=== PATIENT | female | born 1965 | race Caucasian/White ===

== ENCOUNTER 2017-02-13 21:24 | Emergency (ER) | payer MEDICARE, OTHER ==
[2017-02-13 21:43] VITALS: BP 135/74
[2017-02-13] MEDS ORDERED: Ondansetron 4 MG/2 ML SDV IVPUSH ONE (22:07)
[2017-02-13] MEDS ORDERED: Sodium Chloride 0.9% 1,000 ML IV SCH (22:15)
[2017-02-13] MEDS ORDERED: Sodium Chloride 0.9% 10 ML Syringe FLUSH PRN (22:23)
[2017-02-13] MEDS ORDERED: Iopamidol 612 MG/ML 150 ML Bottle IV SCH (22:30)
--- NOTE | 2017-02-14 00:01 | EDM.PDOC ---
ED HPI GENERAL MEDICAL PROBLEM - General Chief Complaint: Abdominal Pain Stated Complaint: LOWER AB PAIN/VOMITING/DIARRHEA Time Seen by Provider: 02/13/17 21:37 Source of Information: Reports: Patient History Limitations: Reports: No limitations - History of Present Illness INITIAL COMMENTS - FREE TEXT/NARRATIVE: History of present illness: [51-year-old female is presenting here with left lower quadrant abdominal pain that started this afternoon and progressively got worse. She apparently had a bout of diverticulitis. Years ago and feels that she's having another case of it. She's had alternating constipation and diarrhea some nausea and occasional vomiting. She feels gassy and bloated. She's had no fevers or chills she denies any dysuria she's had a cholecystectomy hysterectomy and opharectomy.] Review of systems: As per history of present illness and below otherwise all systems reviewed and negative. Past medical history: As per history of present illness and as reviewed below otherwise noncontributory. Surgical history: As per history of present illness and as reviewed below otherwise noncontributory. Social history: No reported history of drug or alcohol abuse. Family history: As per history of present illness and as reviewed below otherwise noncontributory. Physical exam: HEENT: Atraumatic, normocephalic, pupils reactive, negative for conjunctival pallor or scleral icterus, mucous membranes moist, throat clear, neck supple, nontender, trachea midline. Lungs: Clear to auscultation, breath sounds equal bilaterally, chest nontender. Heart: S1S2, regular, negative for clicks, rubs, or JVD. Abdomen: Her abdomen is distended and tender throughout without peritoneal signs. Hypoactive bowel sounds are present. Pelvis: Stable nontender. Genitourinary: Deferred. Rectal: Deferred. Extremities: Atraumatic, negative for cords or calf pain. Neurovascular unremarkable. Neuro: Awake, alert, oriented. Cranial nerves II through XII unremarkable. Cerebellum unremarkable. Motor and sensory unremarkable throughout. Exam nonfocal. Diagnostics: [CBC complete metabolic panel were obtained abdominal pelvic CT was obtained and nothing acute her surgical was discovered. she did not have diverticulitis. She did have scattered loops of small bowel and ascending colon with intramural fluid] Therapeutics: [] Impression: [Enteritis] Plan: [She's discharged home and will continue to try to manage her issues at home and followup in the clinic if she's not improving. They have tried to do a colonoscopy on her but apparently she states that her colon is so bad they can get the scope through her. She has wondered if she has irritable bowel syndrome. She's read about that problem.] Definitive disposition and diagnosis as appropriate pending reevaluation and review of above. Left Lower Abdominal Pain Score (Numeric/FACES): 2 - Related Data Allergies Allergy/AdvReac Type Severity Reaction Status Date / Time propofol Allergy Severe Cardiac Verified 03/03/15 04:20 Arrest codeine sulfate Allergy Intermediate Nausea Uncoded 03/03/15 04:20 Home Meds: Home Meds Albuterol Sulfate 1 puff IH ASDIRECTED 12/23/14 [History] Golimumab 50 mg SQ Q30D 12/23/14 [History] Methotrexate Sodium 0.8 ml SQ Q7D 12/23/14 [History] ALPRAZolam [Xanax] 0.25 mg PO BEDTIME PRN 03/03/15 [History] Cetirizine [ZyrTEC] 10 mg PO DAILY PRN 03/03/15 [History] Cholecalciferol (Vitamin D3) [Vitamin D] 50,000 unit PO Q30D 03/03/15 [History] Folic Acid 2 mg PO DAILY 03/03/15 [History] Levothyroxine Sodium [Synthroid] 125 mcg PO DAILY 03/03/15 [History] Tiotropium [Spiriva HandiHaler] 1 puff IH DAILY 03/03/15 [History] Hydrocodone/Acetaminophen [Hydrocodon-Acetaminophen 5-325] 1 tab PO ASDIRECTED PRN 02/13/17 [History] buPROPion HCl [Wellbutrin Xl] 300 mg PO DAILY 02/13/17 [History] Past Medical History Other HEENT History: dry eye syndrome Other Cardiovascular History: hx of low potassium Respiratory History: Reports: Asthma, COPD Gastrointestinal History: Reports: Diverticulosis Musculoskeletal History: Reports: Arthritis Other Musculoskeletal History: shoulder surgery scheduled for 03-16-15 Psychiatric History: Reports: Anxiety Other Endocrine/Metabolic History: glucose impaired - prediabetic Immunologic History: Reports: Immunosuppression - Past Surgical History GI Surgical History: Reports: Appendectomy, Cholecystectomy Other GI Surgeries/Procedures: lap bharath Female Surgical History: Reports: Hysterectomy, Oophorectomy Other Female Surgeries/Procedures: prolapsed bladder Social & Family History - Tobacco Use Smoking Status *Q: Light Tobacco Smoker Years of Tobacco use: 41 Packs/Tins Daily: 5 - Recreational Drug Use Recreational Drug Use: No ED ROS GENERAL - Review of Systems Review Of Systems: ROS reveals no pertinent complaints other than HPI. ED EXAM, GI/ABD - Physical Exam Exam: See Below Course - Vital Signs Last Recorded V/S: Last Vital Signs Temp 37.7 C 02/13/17 21:43 Pulse 103 H 02/13/17 21:43 Resp 16 02/13/17 21:43 BP 135/74 02/13/17 21:43 Pulse Ox 97 02/13/17 21:43 - Orders/Labs/Meds Orders: Active Orders 24 hr Category Date Time Status Abdomen Pelvis w Cont [CT] Stat Exams 02/13/17 22:06 Taken Iopamidol [Isovue-300 (61%)] Med 02/13/17 22:30 Active 150 ml IV . DIRECTED Sodium Chloride 0.9% [Normal Saline] 1,000 ml Med 02/13/17 22:15 Active IV ASDIRECTED Sodium Chloride 0.9% [Saline Flush] Med 02/13/17 22:23 Active 10 ml FLUSH ONETIME PRN Medication Orders Sodium Chloride (Normal Saline) 1,000 mls @ 500 mls/hr IV ASDIRECTED JAMES Last Admin: 02/13/17 22:51 Dose: 500 mls/hr Iopamidol (Isovue-300 (61%)) 150 ml IV . DIRECTED JAMES Last Admin: 02/13/17 22:39 Dose: 150 ml Sodium Chloride (Saline Flush) 10 ml FLUSH ONETIME PRN PRN Reason: PER RADIOLOGY PROTOCOL Last Admin: 02/13/17 22:40 Dose: 10 ml Labs: Laboratory Tests 02/13/17 02/13/17 Range/Units 22:16 22:16 WBC 8.2 (4.5-11.0) K/uL RBC 4.87 (3.30-5.50) M/uL Hgb 14.3 (12.0-15.0) g/dL Hct 41.4 (36.0-48.0) % MCV 85 (80-98) fL MCH 29 (27-31) pg MCHC 35 (32-36) % Plt Count 254 (150-400) K/uL Neut % (Auto) 75 H (36-66) % Lymph % (Auto) 19 L (24-44) % [place] % (Auto) 5 (2-6) % Eos % (Auto) 1 L (2-4) % Baso % (Auto) 1 (0-1) % Sodium 136 L (140-148) mmol/L Potassium 4.2 (3.6-5.2) mmol/L Chloride 101 (100-108) mmol/L Carbon Dioxide 28 (21-32) mmol/L Anion Gap 11.2 (5.0-14.0) mmol/L BUN 16 (7-18) mg/dL Creatinine 1.0 (0.6-1.0) mg/dL Est Cr Clr Drug Dosing 63.71 mL/min Estimated GFR (MDRD) 59 L (>60) Glucose 124 H (74-106) mg/dL Calcium 8.3 L (8.5-10.1) mg/dL Total Bilirubin 0.6 (0.2-1.0) mg/dL AST 21 (15-37) U/L ALT 41 (12-78) U/L Alkaline Phosphatase 36 L (46-116) U/L Total Protein 7.3 (6.4-8.2) g/dL Albumin 3.6 (3.4-5.0) g/dL Globulin 3.7 H (2.3-3.5) g/dL Albumin/Globulin Ratio 1.0 L (1.2-2.2) Meds: Medications Generic Name Dose Route Start Last Admin Trade Name Freq PRN Reason Stop Dose Admin Sodium Chloride 1,000 mls @ 500 mls/hr 02/13/17 22:15 02/13/17 22:51 Normal Saline IV 500 mls/hr ASDIRECTED JAMES Administration Iopamidol 150 ml 02/13/17 22:30 02/13/17 22:39 Isovue-300 (61%) IV 150 ml . DIRECTED JAMES Administration Sodium Chloride 10 ml 02/13/17 22:23 02/13/17 22:40 Saline Flush FLUSH 10 ml ONETIME PRN Administration PER RADIOLOGY PROTOCOL Discontinued Medications Generic Name Dose Route Start Last Admin Trade Name Freq PRN Reason Stop Dose Admin Sodium Chloride 84 mls @ 3 mls/sec 02/13/17 22:23 02/13/17 22:39 Normal Saline IV 02/13/17 22:24 3 mls/sec ONETIME ONE Administration Ondansetron HCl 4 mg 02/13/17 22:07 02/13/17 22:50 Zofran IVPUSH 02/13/17 22:08 4 mg ONETIME ONE Administration Departure - Departure Time of Disposition: 23:59 Disposition: Home, Self-Care 01 Condition: good Clinical Impression: Enteritis - Discharge Information Forms: ED Department Discharge Additional Instructions: I hope you get to feeling better and followup the clinic if you are not improving to see if your doctor can help you. You might benefit from seeing a dietitian to discuss your dietary habits to see if they have any ideas that might help you with your chronic problems with your bowels. If your pain comes back and is very severe especially if associated with a fever he should return to the emergency room. - My Orders Last 24 Hours: My Active Orders 02/13/17 22:06 Abdomen Pelvis w Cont [CT] Stat 02/13/17 22:15 Sodium Chloride 0.9% [Normal Saline] 1,000 ml IV ASDIRECTED 02/13/17 22:23 Sodium Chloride 0.9% [Saline Flush] 10 ml FLUSH ONETIME PRN 02/13/17 22:30 Iopamidol [Isovue-300 (61%)] 150 ml IV . DIRECTED - Assessment/Plan Last 24 Hours: My Active Orders 02/13/17 22:06 Abdomen Pelvis w Cont [CT] Stat 02/13/17 22:15 Sodium Chloride 0.9% [Normal Saline] 1,000 ml IV ASDIRECTED 02/13/17 22:23 Sodium Chloride 0.9% [Saline Flush] 10 ml FLUSH ONETIME PRN 02/13/17 22:30 Iopamidol [Isovue-300 (61%)] 150 ml IV . DIRECTED
== END 2017-02-14 00:10 | disposition home or self-care (01) ==
LOC: JP.ED 21:24
DX: K52.9 Noninfective gastroenteritis and colitis, unspecified (principal); Z79.899 Other long term (current) drug therapy; Z88.5 Allergy status to narcotic agent; J44.9 Chronic obstructive pulmonary disease, unspecified; K57.90 Diverticulosis of intestine, part unspecified, without perforation or abscess without bleeding; F41.9 Anxiety disorder, unspecified; F17.210 Nicotine dependence, cigarettes, uncomplicated
CPT/HCPCS: 36415; 74177; 80053; 85025; 96361; 96374; 99284; J2405; J7030; J7040; J7050

== ENCOUNTER 2017-12-22 18:54 | Emergency (ER) | payer MEDICARE, OTHER ==
[2017-12-22 19:18] VITALS: BP 149/62
[2017-12-22] MEDS ORDERED: Meclizine 25 MG Tab PO ONE (19:56)
[2017-12-22] MEDS ORDERED: Ondansetron 4 MG Tab.DIS PO ONE (19:57)
--- NOTE | 2017-12-22 20:00 | EDM.PDOC ---
ED HPI GENERAL MEDICAL PROBLEM - General Chief Complaint: Gastrointestinal Problem Stated Complaint: ILLNESS Time Seen by Provider: 12/22/17 19:45 Source of Information: Reports: Patient History Limitations: Reports: No Limitations - History of Present Illness INITIAL COMMENTS - FREE TEXT/NARRATIVE: pt had pneumonia in Oct. Since that time she has had episodes ofdizziness or vertigo. If she moves her head or moves her eyes she gets nauseated. Onset: Gradual, Other ( Thuis has been going on since ) Duration: Day(s): Location: Reports: Head Associated Symptoms: Reports: Nausea/Vomiting, Weakness - Related Data Allergies Allergy/AdvReac Type Severity Reaction Status Date / Time propofol Allergy Severe Cardiac Verified 12/22/17 19:20 Arrest codeine sulfate Allergy Intermediate Nausea Uncoded 03/03/15 04:20 Home Meds: Home Meds ALPRAZolam [Xanax] 0.5 mg PO BEDTIME PRN 03/03/15 [History] Cetirizine [ZyrTEC] 10 mg PO DAILY PRN 03/03/15 [History] Cholecalciferol (Vitamin D3) [Vitamin D] 50,000 unit PO Q30D 03/03/15 [History] Folic Acid 1 mg PO DAILY 03/03/15 [History] Tiotropium [Spiriva HandiHaler] 1 puff IH DAILY 03/03/15 [History] Hydrocodone/Acetaminophen [Hydrocodon-Acetaminophen 5-325] 1 tab PO ASDIRECTED PRN 02/13/17 [History] Albuterol [Proventil] 1 dose INH Q4H PRN 12/22/17 [History] Clobetasol Propionate [Temovate] 1 dose TOP BID 12/22/17 [History] Fenofibrate 1 tab PO DAILY 12/22/17 [History] Golimumab [Simponi] 50 mg SUBCUT ASDIRECTED 12/22/17 [History] Levothyroxine 1 tab PO DAILY 12/22/17 [History] Methotrexate 6 tab PO ASDIRECTED 12/22/17 [History] Ranitidine HCl [Zantac] 1 tab PO DAILY 12/22/17 [History] Venlafaxine HCl [Venlafaxine ER] 150 mg PO DAILY 12/22/17 [History] predniSONE [Prednisone] 1 tab PO ASDIRECTED 12/22/17 [History] Past Medical History Other HEENT History: dry eye syndrome Other Cardiovascular History: hx of low potassium Respiratory History: Reports: Asthma, COPD Gastrointestinal History: Reports: Diverticulosis, Pancreatitis, Other (See Below) Other Gastrointestinal History: perforated colon Musculoskeletal History: Reports: Arthritis Other Musculoskeletal History: shoulder surgery scheduled for 03-16-15 Psychiatric History: Reports: Anxiety Other Endocrine/Metabolic History: glucose impaired - prediabetic Immunologic History: Reports: Immunosuppression, Other (See Below) Other Immunologic History: immunosuppression d/t medications - Past Surgical History GI Surgical History: Reports: Appendectomy, Cholecystectomy, Maria G Fundoplication, Other (See Below) Other GI Surgeries/Procedures: colon surgery for perforated colon Female Surgical History: Reports: Hysterectomy, Oophorectomy Other Female Surgeries/Procedures: prolapsed bladder Musculoskeletal Surgical History: Reports: Shoulder Surgery Social & Family History - Tobacco Use Smoking Status *Q: Never Smoker Years of Tobacco use: 41 Packs/Tins Daily: 5 - Recreational Drug Use Recreational Drug Use: No ED ROS GENERAL - Review of Systems Review Of Systems: See Below Constitutional: Reports: No Symptoms HEENT: Reports: No Symptoms Respiratory: Reports: No Symptoms Cardiovascular: Reports: No Symptoms Endocrine: Reports: No Symptoms GI/Abdominal: Reports: No Symptoms : Reports: No Symptoms Skin: Reports: No Symptoms Neurological: Reports: Dizziness ED EXAM, GI/ABD - Physical Exam Exam: See Below Text/Narrative:: pt arrived very upset because she has had alot of vertigo. If she moves her head or moves her eyes she has sig vertigo. Exam Limited By: No Limitations General Appearance: Alert, Anxious, Other (pupils equal and reactive. ) Ears: Normal TMs Nose: Normal Inspection Throat/Mouth: Normal Inspection, Other (pt does not have sig tenderness over her sinuses. She does not have carotid bruits. ) Head: Atraumatic Neck: Normal Inspection, Other (no carotid bruits. ) Respiratory/Chest: No Respiratory Distress Cardiovascular: Regular Rate, Rhythm GI/Abdominal Exam: Soft, No Mass (Female) Exam: Deferred Rectal (Female) Exam: Deferred Back Exam: Normal Inspection Extremities: Normal Inspection Neurological: Alert, Oriented, Other ( dizziness) Psychiatric: Normal Affect Course - Vital Signs Last Recorded V/S: Last Vital Signs Temp 36.2 C 12/22/17 19:19 Pulse 107 H 12/22/17 19:19 Resp 20 12/22/17 19:19 BP 149/62 H 12/22/17 19:19 Pulse Ox 95 12/22/17 19:19 Orthostatic Blood Pressure [ 124/82 Standing] Orthostatic Blood Pressure [ 124/80 Sitting] Orthostatic Blood Pressure [ 112/74 Supine] - Orders/Labs/Meds Orders: Active Orders 24 hr Category Date Time Status Head wo Cont [CT] Stat Exams 12/22/17 19:55 Taken Labs: Laboratory Tests 12/22/17 12/22/17 12/22/17 Range/Units 19:55 20:04 20:04 WBC 8.6 (4.5-11.0) K/uL RBC 4.79 (3.30-5.50) M/uL Hgb 14.4 (12.0-15.0) g/dL Hct 41.0 (36.0-48.0) % MCV 86 (80-98) fL MCH 30 (27-31) pg MCHC 35 (32-36) % Plt Count 299 (150-400) K/uL Neut % (Auto) 50 (36-66) % Lymph % (Auto) 38 (24-44) % [place] % (Auto) 9 H (2-6) % Eos % (Auto) 3 (2-4) % Baso % (Auto) 1 (0-1) % Sodium 141 (140-148) mmol/L Potassium 3.9 (3.6-5.2) mmol/L Chloride 103 (100-108) mmol/L Carbon Dioxide 28 (21-32) mmol/L Anion Gap 9.9 (5.0-14.0) mmol/L BUN 15 (7-18) mg/dL Creatinine 0.9 (0.6-1.0) mg/dL Est Cr Clr Drug Dosing 70.01 mL/min Estimated GFR (MDRD) > 60 (>60) Glucose 118 H (74-106) mg/dL Calcium 9.1 (8.5-10.1) mg/dL Total Bilirubin 0.2 D (0.2-1.0) mg/dL AST 25 (15-37) U/L ALT 51 (12-78) U/L Alkaline Phosphatase 44 L (46-116) U/L Total Protein 7.6 (6.4-8.2) g/dL Albumin 3.4 (3.4-5.0) g/dL Globulin 4.2 H (2.3-3.5) g/dL Albumin/Globulin Ratio 0.8 L (1.2-2.2) Urine Color Yellow Urine Appearance Clear Urine pH 7.0 (4.5-8.0) Ur Specific [place] 1.015 (1.008-1.030) Urine Protein Negative (NEGATIVE) mg/dL Urine Glucose (UA) Normal (NEGATIVE) mg/dL Urine Ketones Negative (NEGATIVE) mg/dL Urine Occult Blood Negative (NEGATIVE) Urine Nitrite Negative (NEGATIVE) Urine Bilirubin Negative (NEGATIVE) Urine Urobilinogen Normal (NORMAL) mg/dL Ur Leukocyte Esterase Negative (NEGATIVE) Urine RBC Not seen (0-5) Urine WBC 0-5 (0-5) Ur Epithelial Cells Moderate Amorphous Sediment Moderate Urine Bacteria Rare Urine Mucus Few Meds: Medications Discontinued Medications Generic Name Dose Route Start Last Admin Trade Name Freq PRN Reason Stop Dose Admin Meclizine HCl 25 mg 12/22/17 19:56 12/22/17 20:21 Antivert PO 12/22/17 19:57 Not Given ONETIME ONE Ondansetron HCl 4 mg 12/22/17 19:57 12/22/17 20:22 Zofran Odt PO 12/22/17 19:58 4 mg ONETIME ONE Administration - Re-Assessments/Exams Free Text/Narrative Re-Assessment/Exam: 12/22/17 21:07 pt had a neg cat scan of the heaD. hER LAB WORK WAS NORMAL. sHE HAS BEEN USING NT[facility]. Departure - Departure Time of Disposition: 21:00 Disposition: Home, Self-Care 01 Condition: Fair Clinical Impression: Vertigo - Discharge Information Referrals: Hung Ojeda MD [Primary Care Provider] - Forms: ED Department Discharge Care Plan Goals: Reschedule appt with physical therapy, referal to ENT, cont antivert, rtc if getting worse. - My Orders Last 24 Hours: My Active Orders 12/22/17 19:55 Head wo Cont [CT] Stat - Assessment/Plan Last 24 Hours: My Active Orders 12/22/17 19:55 Head wo Cont [CT] Stat
== END 2017-12-22 21:22 | disposition home or self-care (01) ==
LOC: JP.ED 18:54
DX: R42 Dizziness and giddiness (principal); J44.9 Chronic obstructive pulmonary disease, unspecified; Z88.8 Allergy status to other drugs, medicaments and biological substances; Z88.5 Allergy status to narcotic agent; Z79.899 Other long term (current) drug therapy
CPT/HCPCS: 36415; 70450; 80053; 81001; 85025; 99284; A9270

== ENCOUNTER 2018-01-16 22:42 | Emergency (ER) | payer MEDICARE, OTHER ==
[2018-01-16] MEDS ORDERED: Ketorolac 60 MG/2 ML SDV IM ONE (23:50)
--- NOTE | 2018-01-16 23:54 | EDM.PDOC ---
ED HPI GENERAL MEDICAL PROBLEM - General Chief Complaint: Gastrointestinal Problem Stated Complaint: ABDOMINAL PAIN Time Seen by Provider: 01/16/18 23:18 Source of Information: Reports: Patient, Family, RN Notes Reviewed History Limitations: Reports: No Limitations - History of Present Illness INITIAL COMMENTS - FREE TEXT/NARRATIVE: 52-year-old female presents to the emergency department today complaint of abdominal pain, she states she's had abdominal pain for the last 36 hours does feel nausea no vomiting has had multiple abdominal surgeries does have a history of diverticulitis also pain is predominantly in the left lower quadrant abdominal Pain Score (Numeric/FACES): 8 - Related Data Allergies Allergy/AdvReac Type Severity Reaction Status Date / Time propofol Allergy Severe Cardiac Verified 01/16/18 23:33 Arrest codeine sulfate Allergy Intermediate Nausea Uncoded 01/16/18 23:33 Home Meds: Home Meds ALPRAZolam [Xanax] 0.5 mg PO BEDTIME PRN 03/03/15 [History] Cetirizine [ZyrTEC] 10 mg PO DAILY PRN 03/03/15 [History] Cholecalciferol (Vitamin D3) [Vitamin D] 50,000 unit PO Q30D 03/03/15 [History] Folic Acid 1 mg PO DAILY 03/03/15 [History] Tiotropium [Spiriva HandiHaler] 1 puff IH DAILY 03/03/15 [History] Hydrocodone/Acetaminophen [Hydrocodon-Acetaminophen 5-325] 1 tab PO ASDIRECTED PRN 02/13/17 [History] Albuterol [Proventil] 1 dose INH Q4H PRN 12/22/17 [History] Clobetasol Propionate [Temovate] 1 dose TOP BID 12/22/17 [History] Fenofibrate 1 tab PO DAILY 12/22/17 [History] Golimumab [Simponi] 50 mg SUBCUT ASDIRECTED 12/22/17 [History] Levothyroxine 1 tab PO DAILY 12/22/17 [History] Methotrexate 6 tab PO ASDIRECTED 12/22/17 [History] Ranitidine HCl [Zantac] 1 tab PO DAILY 12/22/17 [History] Venlafaxine HCl [Venlafaxine ER] 150 mg PO DAILY 12/22/17 [History] predniSONE [Prednisone] 1 tab PO ASDIRECTED 12/22/17 [History] Past Medical History Other HEENT History: dry eye syndrome Other Cardiovascular History: hx of low potassium Respiratory History: Reports: Asthma, COPD Gastrointestinal History: Reports: Diverticulosis, Pancreatitis, Other (See Below) Other Gastrointestinal History: perforated colon Musculoskeletal History: Reports: Arthritis Other Musculoskeletal History: shoulder surgery scheduled for 03-16-15 Psychiatric History: Reports: Anxiety Other Endocrine/Metabolic History: glucose impaired - prediabetic Immunologic History: Reports: Immunosuppression, Other (See Below) Other Immunologic History: immunosuppression d/t medications - Infectious Disease History Infectious Disease History: Reports: Chicken Pox, Shingles - Past Surgical History GI Surgical History: Reports: Appendectomy, Cholecystectomy, Maria G Fundoplication, Other (See Below) Other GI Surgeries/Procedures: colon surgery for perforated colon Female Surgical History: Reports: Hysterectomy, Oophorectomy Other Female Surgeries/Procedures: prolapsed bladder Musculoskeletal Surgical History: Reports: Shoulder Surgery Social & Family History - Tobacco Use Smoking Status *Q: Never Smoker Years of Tobacco use: 41 Packs/Tins Daily: 5 - Caffeine Use Caffeine Use: Reports: None - Recreational Drug Use Recreational Drug Use: No ED ROS GENERAL - Review of Systems Review Of Systems: See Below Constitutional: Denies: Fever, Chills HEENT: Reports: No Symptoms Respiratory: Reports: No Symptoms Cardiovascular: Reports: No Symptoms GI/Abdominal: Reports: Abdominal Pain, Nausea. Denies: Constipation, Diarrhea, Vomiting : Reports: No Symptoms Musculoskeletal: Reports: No Symptoms Skin: Reports: No Symptoms Neurological: Reports: No Symptoms ED EXAM, GI/ABD - Physical Exam Exam: See Below Exam Limited By: No Limitations General Appearance: Alert, WD/WN, No Apparent Distress Head: Atraumatic, Normocephalic Neck: Normal Inspection, Supple, Non-Tender, Full Range of Motion Respiratory/Chest: No Respiratory Distress, Lungs Clear, Normal Breath Sounds, No Accessory Muscle Use Cardiovascular: Regular Rate, Rhythm, No Murmur GI/Abdominal Exam: Normal Bowel Sounds, Soft, No Distention, Tender (Left lower quadrant) Course - Vital Signs Last Recorded V/S: Last Vital Signs Temp 97.2 F 01/17/18 00:16 Pulse 78 01/17/18 00:16 Resp 18 01/17/18 00:16 BP 122/64 01/17/18 00:16 Pulse Ox 97 01/17/18 00:16 - Orders/Labs/Meds Orders: Active Orders 24 hr Category Date Time Status UA W/MICROSCOPIC [URIN] Urgent Lab 01/17/18 00:10 Ordered Labs: Laboratory Tests 01/16/18 01/16/18 01/16/18 Range/Units 23:59 23:59 23:59 WBC 12.6 H (4.5-11.0) K/uL RBC 4.58 (3.30-5.50) M/uL Hgb 13.8 (12.0-15.0) g/dL Hct 39.6 (36.0-48.0) % MCV 87 (80-98) fL MCH 30 (27-31) pg MCHC 35 (32-36) % Plt Count 297 (150-400) K/uL Neut % (Auto) 56 (36-66) % Lymph % (Auto) 35 (24-44) % [place] % (Auto) 8 H (2-6) % Eos % (Auto) 1 L (2-4) % Baso % (Auto) 0 (0-1) % Sodium 141 (140-148) mmol/L Potassium 3.9 (3.6-5.2) mmol/L Chloride 104 (100-108) mmol/L Carbon Dioxide 28 (21-32) mmol/L Anion Gap 8.6 (5.0-14.0) mmol/L BUN 16 (7-18) mg/dL Creatinine 0.9 (0.6-1.0) mg/dL Est Cr Clr Drug Dosing 70.01 mL/min Estimated GFR (MDRD) > 60 (>60) Glucose 109 H (74-106) mg/dL Lactic Acid 0.9 (0.4-2.0) mmol/L Calcium 8.8 (8.5-10.1) mg/dL Total Bilirubin 0.2 (0.2-1.0) mg/dL AST 24 (15-37) U/L ALT 44 (12-78) U/L Alkaline Phosphatase 39 L (46-116) U/L Total Protein 7.3 (6.4-8.2) g/dL Albumin 3.5 (3.4-5.0) g/dL Globulin 3.8 H (2.3-3.5) g/dL Albumin/Globulin Ratio 0.9 L (1.2-2.2) Lipase 60 L (73-393) U/L Urine Color Urine Appearance Urine pH (4.5-8.0) Ur Specific [employer] (1.008-1.030) Urine Protein (NEGATIVE) mg/dL Urine Glucose (UA) (NEGATIVE) mg/dL Urine Ketones (NEGATIVE) mg/dL Urine Occult Blood (NEGATIVE) Urine Nitrite (NEGATIVE) Urine Bilirubin (NEGATIVE) Urine Urobilinogen (NORMAL) mg/dL Ur Leukocyte Esterase (NEGATIVE) Urine RBC (0-5) Urine WBC (0-5) Ur Epithelial Cells Amorphous Sediment Urine Bacteria Urine Mucus 01/17/18 Range/Units 00:10 WBC (4.5-11.0) K/uL RBC (3.30-5.50) M/uL Hgb (12.0-15.0) g/dL Hct (36.0-48.0) % MCV (80-98) fL MCH (27-31) pg MCHC (32-36) % Plt Count (150-400) K/uL Neut % (Auto) (36-66) % Lymph % (Auto) (24-44) % [place] % (Auto) (2-6) % Eos % (Auto) (2-4) % Baso % (Auto) (0-1) % Sodium (140-148) mmol/L Potassium (3.6-5.2) mmol/L Chloride (100-108) mmol/L Carbon Dioxide (21-32) mmol/L Anion Gap (5.0-14.0) mmol/L BUN (7-18) mg/dL Creatinine (0.6-1.0) mg/dL Est Cr Clr Drug Dosing mL/min Estimated GFR (MDRD) (>60) Glucose (74-106) mg/dL Lactic Acid (0.4-2.0) mmol/L Calcium (8.5-10.1) mg/dL Total Bilirubin (0.2-1.0) mg/dL AST (15-37) U/L ALT (12-78) U/L Alkaline Phosphatase (46-116) U/L Total Protein (6.4-8.2) g/dL Albumin (3.4-5.0) g/dL Globulin (2.3-3.5) g/dL Albumin/Globulin Ratio (1.2-2.2) Lipase (73-393) U/L Urine Color Yellow Urine Appearance Clear Urine pH 6.0 (4.5-8.0) Ur Specific [employer] 1.025 (1.008-1.030) Urine Protein Negative (NEGATIVE) mg/dL Urine Glucose (UA) Normal (NEGATIVE) mg/dL Urine Ketones Negative (NEGATIVE) mg/dL Urine Occult Blood Negative (NEGATIVE) Urine Nitrite Negative (NEGATIVE) Urine Bilirubin Negative (NEGATIVE) Urine Urobilinogen Normal (NORMAL) mg/dL Ur Leukocyte Esterase Negative (NEGATIVE) Urine RBC 0-5 (0-5) Urine WBC 0-5 (0-5) Ur Epithelial Cells Moderate Amorphous Sediment Few Urine Bacteria Few Urine Mucus Not seen Meds: Medications Discontinued Medications Generic Name Dose Route Start Last Admin Trade Name Mary PRN Reason Stop Dose Admin Ketorolac Tromethamine 60 mg 01/16/18 23:50 01/17/18 00:03 Toradol IM 01/16/18 23:51 60 mg ONETIME ONE Administration Departure - Departure Time of Disposition: 00:42 Disposition: Home, Self-Care 01 Condition: Good Clinical Impression: Diverticulitis - Discharge Information Referrals: Hung Ojeda MD [Primary Care Provider] - Forms: ED Department Discharge Additional Instructions: Take full course of antibiotics, continue to use her pain medications as required, Please followup with your primary care provider in 3-5 days if not better, please call return to the emergency department with worsening of symptoms. - My Orders Last 24 Hours: My Active Orders 01/17/18 00:10 UA W/MICROSCOPIC [URIN] Urgent - Assessment/Plan Last 24 Hours: My Active Orders 01/17/18 00:10 UA W/MICROSCOPIC [URIN] Urgent Plan: Assessment Acuity = acute Site and laterality = probable diverticulitis Etiology = probable bacterial cause Manifestations = abdominal pain Location of injury = Home Lab values = WBC elevated 12.5 consistent with a leukocytosis remainder CMP and urinalysis unremarkable Plan Talked to her about further evaluation such as CAT scan to make a diagnosis of diverticulitis however she declined at this time therefore treat empirically with Augmentin 875 by mouth twice a day 10 days recommend clear liquid diet and bowel rest for the next couple of days she was given fentanyl 100 g prior to discharge she is going to use hydrocodone as needed for pain control which she artery has follow-up with primary care in the next 3-5 days for reevaluation if not better This note was dictated using [employer] voice recognition software please call with any questions on syntax or urban.
[2018-01-17 00:18] VITALS: BP 122/64
[2018-01-17] MEDS ORDERED: fentaNYL 100 MCG/2 ML SDV IM ONE (00:40)
== END 2018-01-17 01:03 | disposition home or self-care (01) ==
LOC: JP.ED 22:42
DX: K57.92 Diverticulitis of intestine, part unspecified, without perforation or abscess without bleeding (principal); Z88.8 Allergy status to other drugs, medicaments and biological substances; Z88.5 Allergy status to narcotic agent; Z79.899 Other long term (current) drug therapy
CPT/HCPCS: 36415; 80053; 81001; 83605; 83690; 85025; 96372; 99283; 99284; J1885; J3010

== ENCOUNTER 2018-04-22 17:29 | Emergency (ER) | payer MEDICARE, OTHER ==
[2018-04-22 17:46] VITALS: BP 176/98
--- NOTE | 2018-04-22 18:43 | EDM.PDOC ---
ED HPI GENERAL MEDICAL PROBLEM - General Chief Complaint: Neurological Problem Stated Complaint: DIZZINESS / NUMBNESS Time Seen by Provider: 04/22/18 18:10 Source of Information: Reports: Patient History Limitations: Reports: No Limitations - History of Present Illness INITIAL COMMENTS - FREE TEXT/NARRATIVE: 53-year-old female who has chronic vertigo, has been more dizzy the last several days than her baseline and tired. She went to physical therapy yesterday and the physical therapist recommend that she have her carotid arteries checked. She went into the clinic today to have them listen to her carotid arteries, but she mentioned she was having some numbness in her left hand so they sent her directly over the emergency room. She is having no pain, she had some peripheral edema yesterday which has resolved. She has no headache. Onset: Unknown/Unsure Severity: Mild Associated Symptoms: Reports: Nausea/Vomiting (Has chronic nausea from the dizziness). Denies: Fever/Chills, Headaches, Shortness of Breath - Related Data Allergies Allergy/AdvReac Type Severity Reaction Status Date / Time propofol Allergy Severe Cardiac Verified 04/22/18 17:54 Arrest codeine sulfate Allergy Intermediate Nausea Uncoded 04/22/18 17:54 Home Meds: Home Meds ALPRAZolam [Xanax] 0.5 mg PO BEDTIME PRN 03/03/15 [History] Cetirizine [ZyrTEC] 10 mg PO DAILY PRN 03/03/15 [History] Cholecalciferol (Vitamin D3) [Vitamin D] 50,000 unit PO Q30D 03/03/15 [History] Folic Acid 1 mg PO DAILY 03/03/15 [History] Tiotropium [Spiriva HandiHaler] 1 puff IH DAILY 03/03/15 [History] Hydrocodone/Acetaminophen [Hydrocodon-Acetaminophen 5-325] 1 tab PO ASDIRECTED PRN 02/13/17 [History] Albuterol [Proventil] 1 dose INH Q4H PRN 12/22/17 [History] Golimumab [Simponi] 50 mg SUBCUT ASDIRECTED 12/22/17 [History] Levothyroxine 1 tab PO DAILY 12/22/17 [History] Methotrexate 6 tab PO ASDIRECTED 12/22/17 [History] Ranitidine HCl [Zantac] 1 tab PO DAILY 12/22/17 [History] Venlafaxine HCl [Venlafaxine ER] 150 mg PO DAILY 12/22/17 [History] predniSONE [Prednisone] 1 tab PO ASDIRECTED 12/22/17 [History] Past Medical History HEENT History: Reports: Other (See Below) Other HEENT History: dry eye syndrome Other Cardiovascular History: hx of low potassium Respiratory History: Reports: Asthma, COPD, Sleep Apnea Gastrointestinal History: Reports: Diverticulosis, Pancreatitis, Other (See Below) Other Gastrointestinal History: perforated colon [employer] History: Reports: Endometriosis, Musculoskeletal History: Reports: Arthritis Other Musculoskeletal History: shoulder surgery scheduled for 03-16-15 Neurological History: Reports: Speech Problems Psychiatric History: Reports: Anxiety, Depression, PTSD Endocrine/Metabolic History: Reports: Hypothyroidism, Obesity/BMI 30+ Other Endocrine/Metabolic History: glucose impaired - prediabetic Immunologic History: Reports: Immunosuppression, Other (See Below) Other Immunologic History: immunosuppression d/t medications Dermatologic History: Reports: Psoriasis - Infectious Disease History Infectious Disease History: Reports: Chicken Pox, Shingles - Past Surgical History Head Surgeries/Procedures: Reports: None HEENT Surgical History: Reports: None Cardiovascular Surgical History: Reports: None Respiratory Surgical History: Reports: None GI Surgical History: Reports: Appendectomy, Cholecystectomy, Colonoscopy, Hernia , Abdominal, Maria G Fundoplication, Other (See Below) Other GI Surgeries/Procedures: colon surgery for perforated colon Female Surgical History: Reports: Hysterectomy, Oophorectomy Other Female Surgeries/Procedures: prolapsed bladder Endocrine Surgical History: Reports: None Neurological Surgical History: Reports: None Musculoskeletal Surgical History: Reports: Shoulder Surgery Dermatological Surgical History: Reports: None Social & Family History - Family History Family Medical History: Noncontributory - Tobacco Use Smoking Status *Q: Former Smoker Years of Tobacco use: 42 Used Tobacco, but Quit: Yes Month/Year Tobacco Last Used: 2010 Second Hand Smoke Exposure: Yes - Caffeine Use Caffeine Use: Reports: None - Recreational Drug Use Recreational Drug Use: No ED ROS GENERAL - Review of Systems Review Of Systems: See Below Constitutional: Reports: Malaise, Weakness, Fatigue. Denies: Fever, Chills HEENT: Reports: Vertigo Respiratory: Denies: Shortness of Breath Cardiovascular: Denies: Chest Pain GI/Abdominal: Reports: Nausea Skin: Reports: Other (Widespread psoriasis patches which are chronic) Neurological: Reports: Dizziness. Denies: Headache ED EXAM, NEURO - Physical Exam Exam: See Below Exam Limited By: No Limitations General Appearance: Alert, No Apparent Distress Eye Exam: Bilateral Eye: EOMI Head Exam: Atraumatic Neck: No: Carotid Bruit Respiratory/Chest: No Respiratory Distress, Lungs Clear Cardiovascular: Regular Rate, Rhythm. No: Extra Beats GI/Abdominal: Soft, Non-Tender Neurological: Alert, Normal Mood/Affect, Other (Paresthesia distribution of the left hand is the median nerve, small finger is not involved) Extremities: No: Pedal Edema Psychiatric: Normal Affect, Normal Mood Course - Vital Signs Last Recorded V/S: Last Vital Signs Temp 98.4 F 04/22/18 17:45 Pulse 96 04/22/18 17:45 Resp 20 04/22/18 17:45 BP 176/98 H 04/22/18 17:45 Pulse Ox 97 04/22/18 17:45 - Orders/Labs/Meds Labs: Laboratory Tests 04/22/18 04/22/18 Range/Units 18:44 18:44 WBC 6.2 (4.5-11.0) K/uL RBC 4.42 (3.30-5.50) M/uL Hgb 12.9 (12.0-15.0) g/dL Hct 37.8 (36.0-48.0) % MCV 86 (80-98) fL MCH 29 (27-31) pg MCHC 34 (32-36) % Plt Count 269 (150-400) K/uL Neut % (Auto) 51 (36-66) % Lymph % (Auto) 38 (24-44) % [place] % (Auto) 8 H (2-6) % Eos % (Auto) 3 (2-4) % Baso % (Auto) 1 (0-1) % Sodium 139 L (140-148) mmol/L Potassium 3.5 L (3.6-5.2) mmol/L Chloride 105 (100-108) mmol/L Carbon Dioxide 29 (21-32) mmol/L Anion Gap 8.5 (5.0-14.0) mmol/L BUN 11 (7-18) mg/dL Creatinine 1.0 (0.6-1.0) mg/dL Est Cr Clr Drug Dosing 62.31 mL/min Estimated GFR (MDRD) 58 L (>60) Glucose 157 H (74-106) mg/dL Calcium 8.8 (8.5-10.1) mg/dL Total Bilirubin 0.3 (0.2-1.0) mg/dL AST 25 (15-37) U/L ALT 45 (12-78) U/L Alkaline Phosphatase 46 (46-116) U/L Total Protein 6.9 (6.4-8.2) g/dL Albumin 3.2 L (3.4-5.0) g/dL Globulin 3.7 H (2.3-3.5) g/dL Albumin/Globulin Ratio 0.9 L (1.2-2.2) - Re-Assessments/Exams Free Text/Narrative Re-Assessment/Exam: 04/22/18 18:42 CBC and CMP were obtained for completeness. Patient was reassured that carotid exam is normal and the numbness in her hand is more of a peripheral symptom. 04/22/18 19:14 All labs were reassuring. Patient can continue to improve and felt less anxious and wanted to go home. Departure - Departure Time of Disposition: 19:25 Disposition: Home, Self-Care 01 Condition: Good Clinical Impression: Vertigo Hand paresthesia Qualifiers: Laterality: left Qualified Code(s): R20.2 - Paresthesia of skin - Discharge Information Instructions: Vertigo, Uglw-so-Mgmg Referrals: Hung Ojeda MD [Primary Care Provider] - Forms: ED Department Discharge Care Plan Goals: Continue your current medications and activity, consider talking with Dr. Ojeda about an ultrasound of your carotid arteries at your convenience. Return anytime if worsening or concerns.
== END 2018-04-22 19:26 | disposition home or self-care (01) ==
LOC: JP.ED 17:29
DX: R20.2 Paresthesia of skin (principal); R42 Dizziness and giddiness
CPT/HCPCS: 36415; 80053; 85025; 99284

== ENCOUNTER 2019-11-24 23:13 | Inpatient (IN) | payer MEDICARE, OTHER ==
--- NOTE | 2019-11-24 23:49 | EDM.PDOC ---
ED HPI GENERAL MEDICAL PROBLEM - General Chief Complaint: General Stated Complaint: MEDICAL Time Seen by Provider: 11/24/19 23:35 Source of Information: Reports: Patient, Old Records, RN History Limitations: Reports: No Limitations - History of Present Illness INITIAL COMMENTS - FREE TEXT/NARRATIVE: 54 yo female here with SOB, cough, intermittent fevers, and muscle cramping getting worse over a couple weeks. Has not been to the clinic. Has been using her nebulizer without much benefit. Has been eating OK, but says she can't taste the food. Bowels are normal, but her abdomen is more distended. No urinary sx's. Cough nonproductive. Onset: Gradual Duration: Week(s):, Getting Worse Location: Reports: Chest, Abdomen, Lower Extremity, Left, Lower Extremity, Right Quality: Reports: Other (crampy) Severity: Moderate Improves with: Reports: None Worsens with: Reports: Other (? time) Context: Reports: Other (See HPI) Associated Symptoms: Reports: Cough, Fever/Chills (intermittent), Shortness of Breath (chronic, progressive). Denies: Diaphoresis, Headaches, Loss of Appetite , Nausea/Vomiting, Rash, Seizure Treatments PROPERTY INSURANCE CLAIMS EXAMINER: Reports: Other (see below) (regular meds) Upper Headache Pain Score (Numeric/FACES): 5 - Related Data Allergies Allergy/AdvReac Type Severity Reaction Status Date / Time propofol Allergy Severe Cardiac Verified 11/24/19 23:28 Arrest codeine sulfate Allergy Intermediate Nausea Uncoded 11/24/19 23:28 Home Meds: Home Meds Cholecalciferol (Vitamin D3) [Vitamin D] 50,000 unit PO Q30D 03/03/15 [History] Folic Acid 1 mg PO DAILY 03/03/15 [History] Hydrocodone/Acetaminophen [Hydrocodon-Acetaminophen 5-325] 1 tab PO ASDIRECTED PRN 02/13/17 [History] Albuterol [Proventil] 1 dose INH Q4H PRN 12/22/17 [History] Golimumab [Simponi] 50 mg SUBCUT ASDIRECTED 12/22/17 [History] Levothyroxine 1 tab PO DAILY 12/22/17 [History] Methotrexate 6 tab PO ASDIRECTED 12/22/17 [History] Venlafaxine HCl [Venlafaxine ER] 150 mg PO DAILY 12/22/17 [History] predniSONE [Prednisone] 1 tab PO ASDIRECTED 12/22/17 [History] Albuterol [Ventolin HFA] 2 puff INH Q4H PRN 09/13/18 [History] ClonazePAM [KlonoPIN] 1 - 2 tab PO TID PRN 09/13/18 [History] Metoprolol Succinate/HCTZ [Metoprolol ER-Hctz 50-12.5 mg] 1 tab PO DAILY [History] buPROPion HCl [Wellbutrin Xl] 300 mg PO DAILY 09/13/18 [History] Past Medical History HEENT History: Reports: Other (See Below) Other HEENT History: Vascular loop desease. Other Cardiovascular History: hx of low potassium Respiratory History: Reports: Asthma, COPD, Sleep Apnea Gastrointestinal History: Reports: Diverticulosis, Pancreatitis, Other (See Below) Other Gastrointestinal History: perforated colon [employer]CHNICIAN History: Reports: Endometriosis, Musculoskeletal History: Reports: Arthritis Other Musculoskeletal History: shoulder surgery scheduled for 03-16-15 Neurological History: Reports: Speech Problems Psychiatric History: Reports: Anxiety, Depression, PTSD Endocrine/Metabolic History: Reports: Diabetes, Type I, Hypothyroidism, Obesity/ BMI 30+ Other Endocrine/Metabolic History: glucose impaired - prediabetic Immunologic History: Reports: Immunosuppression, Other (See Below) Other Immunologic History: immunosuppression d/t medications Dermatologic History: Reports: Psoriasis - Infectious Disease History Infectious Disease History: Reports: Chicken Pox, Shingles - Past Surgical History Head Surgeries/Procedures: Reports: None Respiratory Surgical History: Reports: None GI Surgical History: Reports: Appendectomy, Cholecystectomy, Colonoscopy, Hernia , Abdominal, Maria G Fundoplication Female Surgical History: Reports: Hysterectomy, Oophorectomy Other Female Surgeries/Procedures: prolapsed bladder Endocrine Surgical History: Reports: None Neurological Surgical History: Reports: None Musculoskeletal Surgical History: Reports: Shoulder Surgery Dermatological Surgical History: Reports: None Social & Family History - Family History Family Medical History: Noncontributory - Tobacco Use Smoking Status *Q: Former Smoker Used Tobacco, but Quit: Yes Month/Year Tobacco Last Used: 2017 Second Hand Smoke Exposure: Yes - Caffeine Use Caffeine Use: Reports: Coffee - Recreational Drug Use Recreational Drug Use: No ED ROS GENERAL - Review of Systems Review Of Systems: See Below Constitutional: Reports: Fever (intermittently) HEENT: Reports: No Symptoms Respiratory: Reports: Shortness of Breath (chronic, progressive), Wheezing, Cough (nonproductive). Denies: Pleuritic Chest Pain, Sputum, Hemoptysis Cardiovascular: Reports: Dyspnea on Exertion GI/Abdominal: Reports: Distension. Denies: Abdominal Pain, Anorexia, Black Stool, Bloody Stool, Constipation, Diarrhea, Hematemesis, Hematochezia, Melena, Nausea, Vomiting : Reports: No Symptoms Musculoskeletal: Reports: Other (diffuse muscle cramps) Skin: Reports: No Symptoms Neurological: Reports: No Symptoms ED EXAM, GENERAL - Physical Exam Exam: See Below Exam Limited By: No Limitations General Appearance: Alert, WD/WN, Mild Distress, Obese Eye Exam: Bilateral Eye: Normal Inspection Ears: Normal External Exam, Normal Canal, Hearing Grossly Normal, Normal TMs Ear Exam: Bilateral Ear: Auricle Normal, Canal Normal, TM normal Nose: Normal Inspection, No Blood Throat/Mouth: Normal Inspection, Normal Lips, Normal Oropharynx, Normal Voice, No Airway Compromise Head: Atraumatic, Normocephalic Neck: Normal Inspection Respiratory/Chest: No Accessory Muscle Use, Decreased Breath Sounds, Other ( tachypnea) Cardiovascular: Regular Rate, Rhythm, No Edema, Tachycardia GI/Abdominal: Normal Bowel Sounds, Distended, Tender (mild, diffuse). No: Non- Tender, No Distention, Guarding, Rigid, Rebound, Hernia Extremities: Normal Inspection, Normal Range of Motion, Non-Tender, No Pedal Edema Neurological: Alert, Oriented, CN II-XII Intact, Normal Cognition, No Motor/ Sensory Deficits Psychiatric: Normal Affect, Normal Mood Skin Exam: Warm, Dry, Intact, No Rash, Other (has some mild erythema of skin of chest, upper back and arms, not warm to touch. ) Course - Vital Signs Text/Narrative:: Dr. Velasco called @ 0100h Last Recorded V/S: Last Vital Signs Temp 36.6 C 11/24/19 23:30 Pulse 125 H 11/25/19 00:33 Resp 24 H 11/24/19 23:30 BP 158/87 H 11/24/19 23:30 Pulse Ox 93 L 11/24/19 23:30 - Orders/Labs/Meds Orders: Active Orders 24 hr Category Date Time Status RT Aerosol Therapy [RC] ASDIRECTED Care 11/25/19 00:15 Active Chest 2V [CR] Stat Exams 11/25/19 00:01 Taken CULTURE BLOOD [BC] Stat Lab 11/25/19 01:04 Ordered LACTIC ACID [CHEM] Stat Lab 11/25/19 04:30 Ordered Lactated Ringers [Ringers, Lactated] 1,000 ml Med 11/25/19 00:45 Active IV ASDIRECTED Sodium Chloride 0.9% [Saline Flush] Med 11/25/19 00:14 Active 10 ml FLUSH ASDIRECTED PRN Saline Lock Insert [OM.PC] Routine Oth 11/25/19 00:14 Ordered Medication Orders Lactated Ringer's (Ringers, Lactated) 1,000 mls @ 150 mls/hr IV ASDIRECTED JAMES Sodium Chloride (Saline Flush) 10 ml FLUSH ASDIRECTED PRN PRN Reason: Keep Vein Open Last Admin: 11/25/19 00:22 Dose: 10 ml Labs: Laboratory Tests 11/24/19 11/24/19 11/24/19 Range/Units 23:54 23:54 23:54 WBC 12.3 H (4.5-11.0) K/uL RBC 4.62 (3.30-5.50) M/uL Hgb 13.8 (12.0-15.0) g/dL Hct 41.7 (36.0-48.0) % MCV 90 (80-98) fL MCH 30 (27-31) pg MCHC 33 (32-36) % Plt Count 331 (150-400) K/uL Sodium 138 L (140-148) mmol/L Potassium 4.2 (3.6-5.2) mmol/L Chloride 101 (100-108) mmol/L Carbon Dioxide 26 (21-32) mmol/L Anion Gap 15.2 H (5.0-14.0) mmol/L BUN 16 (7-18) mg/dL Creatinine 1.0 (0.6-1.0) mg/dL Est Cr Clr Drug Dosing 61.61 mL/min Estimated GFR (MDRD) 58 L (>60) Glucose 183 H (74-106) mg/dL Lactic Acid (0.4-2.0) mmol/L Calcium 9.3 (8.5-10.1) mg/dL Magnesium (1.8-2.4) mg/dL TSH, Ultra Sensitive 10.417 H (0.358-3.740) uIU/mL Urine Color (YELLOW) Urine Appearance (CLEAR) Urine pH (5.0-8.0) Ur Specific [place] (1.008-1.030) Urine Protein (NEGATIVE) mg/dL Urine Glucose (UA) (NEGATIVE) mg/dL Urine Ketones (NEGATIVE) mg/dL Urine Occult Blood (NEGATIVE) Urine Nitrite (NEGATIVE) Urine Bilirubin (NEGATIVE) Urine Urobilinogen (0.2-1.0) EU/dL Ur Leukocyte Esterase (NEGATIVE) Urine RBC (0-5) Urine WBC (0-5) Ur Epithelial Cells Amorphous Sediment Urine Bacteria Urine Mucus 11/25/19 11/25/19 11/25/19 Range/Units 00:29 00:33 00:40 WBC (4.5-11.0) K/uL RBC (3.30-5.50) M/uL Hgb (12.0-15.0) g/dL Hct (36.0-48.0) % MCV (80-98) fL MCH (27-31) pg MCHC (32-36) % Plt Count (150-400) K/uL Sodium (140-148) mmol/L Potassium (3.6-5.2) mmol/L Chloride (100-108) mmol/L Carbon Dioxide (21-32) mmol/L Anion Gap (5.0-14.0) mmol/L BUN (7-18) mg/dL Creatinine (0.6-1.0) mg/dL Est Cr Clr Drug Dosing mL/min Estimated GFR (MDRD) (>60) Glucose (74-106) mg/dL Lactic Acid 2.2 H (0.4-2.0) mmol/L Calcium (8.5-10.1) mg/dL Magnesium 1.6 L (1.8-2.4) mg/dL TSH, Ultra Sensitive (0.358-3.740) uIU/mL Urine Color Yellow (YELLOW) Urine Appearance Cloudy A (CLEAR) Urine pH 5.5 (5.0-8.0) Ur Specific [place] >= 1.030 (1.008-1.030) Urine Protein 30 H (NEGATIVE) mg/dL Urine Glucose (UA) Negative (NEGATIVE) mg/dL Urine Ketones Negative (NEGATIVE) mg/dL Urine Occult Blood Negative (NEGATIVE) Urine Nitrite Negative (NEGATIVE) Urine Bilirubin Small H (NEGATIVE) Urine Urobilinogen 1.0 (0.2-1.0) EU/dL Ur Leukocyte Esterase Negative (NEGATIVE) Urine RBC 0-5 (0-5) Urine WBC 0-5 (0-5) Ur Epithelial Cells Many Amorphous Sediment Not seen Urine Bacteria Many Urine Mucus Not seen Meds: Medications Generic Name Dose Route Start Last Admin Trade Name Freq PRN Reason Stop Dose Admin Lactated Ringer's 1,000 mls @ 150 mls/hr 11/25/19 00:45 Ringers, Lactated IV ASDIRECTED JAMES Sodium Chloride 10 ml 11/25/19 00:14 11/25/19 00:22 Saline Flush FLUSH 10 ml ASDIRECTED PRN Administration Keep Vein Open Discontinued Medications Generic Name Dose Route Start Last Admin Trade Name Freq PRN Reason Stop Dose Admin Albuterol/Ipratropium 3 ml 11/25/19 00:15 11/25/19 00:20 Duoneb 3.0-0.5 Mg/3 Ml NEB 11/25/19 00:16 3 ml ONETIME ONE Administration Insulin Glargine 35 units 11/25/19 00:48 Lantus Solostar SUBCUT 11/25/19 00:49 NOW STA Magnesium Oxide 800 mg 11/25/19 00:48 Magnesium Oxide PO 11/25/19 00:49 ONETIME ONE Methylprednisolone Sodium Succinate 125 mg 11/25/19 00:54 Solu-Medrol IVPUSH 11/25/19 00:55 ONETIME ONE - Radiology Interpretation Free Text/Narrative:: CXR- Departure - Departure Time of Disposition: 01:25 Disposition: Admitted As Inpatient 68 Condition: Fair Clinical Impression: Bronchospasm, Hypomagnesemia, Elevated TSH, Elevated blood sugar - Discharge Information *PRESCRIPTION DRUG MONITORING PROGRAM REVIEWED*: Not Applicable *COPY OF PRESCRIPTION DRUG MONITORING REPORT IN PATIENT JIM: Not Applicable Referrals: Hung Ojeda MD [Primary Care Provider] - Forms: ED Department Discharge Sepsis Event Note - Evaluation Sepsis Screening Result: No Definite Risk - Focused Exam Vital Signs: Vital Signs Temp Pulse Resp BP Pulse Ox 11/25/19 00:33 125 H 11/24/19 23:30 36.6 C 138 H 24 H 158/87 H 93 L 11/24/19 23:27 36.6 C 138 H 24 H 158/87 H 93 L Date Exam was Performed: 11/25/19 Time Exam was Performed: 01:04 - My Orders Last 24 Hours: My Active Orders 11/25/19 00:01 Chest 2V [CR] Stat 11/25/19 00:14 Sodium Chloride 0.9% [Saline Flush] 10 ml FLUSH ASDIRECTED PRN Saline Lock Insert [OM.PC] Routine 11/25/19 00:15 RT Aerosol Therapy [RC] ASDIRECTED 11/25/19 00:45 Lactated Ringers [Ringers, Lactated] 1,000 ml IV ASDIRECTED 11/25/19 01:04 CULTURE BLOOD [BC] Stat 11/25/19 04:30 LACTIC ACID [CHEM] Stat - Assessment/Plan Last 24 Hours: My Active Orders 11/25/19 00:01 Chest 2V [CR] Stat 11/25/19 00:14 Sodium Chloride 0.9% [Saline Flush] 10 ml FLUSH ASDIRECTED PRN Saline Lock Insert [OM.PC] Routine 11/25/19 00:15 RT Aerosol Therapy [RC] ASDIRECTED 11/25/19 00:45 Lactated Ringers [Ringers, Lactated] 1,000 ml IV ASDIRECTED 11/25/19 01:04 CULTURE BLOOD [BC] Stat 11/25/19 04:30 LACTIC ACID [CHEM] Stat
[2019-11-25] MEDS ORDERED: Sodium Chloride 0.9% 10 ML Syringe FLUSH PRN (00:14)
[2019-11-25] MEDS ORDERED: Albuterol/Ipratropium 3.0-0.5 MG/3 ML Neb Soln NEB ONE (00:15)
[2019-11-25] MEDS ORDERED: Lactated Ringers 1,000 ML IV SCH (00:45)
[2019-11-25] MEDS ORDERED: Insulin Glargine,Human Rec. Analog 100 Units/ML 3 ML Pen SUBCUT STA (00:48)
[2019-11-25] MEDS ORDERED: Magnesium Oxide 400 MG Tab PO ONE (00:48)
[2019-11-25] MEDS ORDERED: methylPREDNISolone Sodium Succinate 125 MG/2 ML SDV IVPUSH ONE (00:54)
[2019-11-25] MEDS ORDERED: Acetaminophen 325 MG Tab PO PRN (01:46)
[2019-11-25] MEDS ORDERED: Ondansetron 4 MG/2 ML SDV IV PRN (01:46)
--- NOTE | 2019-11-25 01:46 | PCM.HP.2 ---
H&P History of Present Illness - General Date of Service: 11/25/19 Source of Information: Patient History Limitations: Reports: No Limitations - History of Present Illness Initial Comments - Free Text/Narative: 54-year-old female with medical history of diabetes, psoriasis following with rheumatology, COPD, questionable asthma, psoriatic arthritis, hypothyroidism, generalized anxiety disorder, previous smoker, hypertension, hyperlipidemia came to the ED with a concerns of cough associated with breathing difficulty which started since last 1 week. Patient reports that she had diarrheal episode associated with runny nose 2 weeks prior to the ED visit which resolved on its own. Patient reports that breathing difficulty started since last 1 week which is gradually progressing. Patient denies any blood in the sputum. Patient is compliant with the albuterol nebulization for underlying COPD. patient had oral thrush side effects with corticosteroid inhaler medication. And is not on any maintenance COPD medications. Denies any chest pain, exertional chest pain, headaches, dizziness, lightheadedness, disturbance in bowel and bladder habits. In the ED patient x-rays did not show any pneumonia. Patient saturations are low 90s in room air. Patient WBC count is elevated and lactic acid is 2.2. Patient is a full code. Other review of systems are not significant Upper Headache Pain Score (Numeric/FACES): 5 - Related Data Allergies/Adverse Reactions: Allergies Allergy/AdvReac Type Severity Reaction Status Date / Time propofol Allergy Severe Cardiac Verified 11/24/19 23:28 Arrest codeine AdvReac Nausea Verified 11/25/19 07:24 Home Medications: Home Meds Cholecalciferol (Vitamin D3) [Vitamin D] 50,000 unit PO Q30D 03/03/15 [History] Folic Acid 1 mg PO DAILY 03/03/15 [History] Hydrocodone/Acetaminophen [Hydrocodon-Acetaminophen 5-325] 1 tab PO ASDIRECTED PRN 02/13/17 [History] Albuterol [Proventil] 1 dose INH Q4H PRN 12/22/17 [History] Golimumab [Simponi] 50 mg SUBCUT ASDIRECTED 12/22/17 [History] Levothyroxine 1 tab PO DAILY 12/22/17 [History] Methotrexate 6 tab PO ASDIRECTED 12/22/17 [History] Venlafaxine HCl [Venlafaxine ER] 150 mg PO DAILY 12/22/17 [History] predniSONE [Prednisone] 1 tab PO ASDIRECTED 12/22/17 [History] Albuterol [Ventolin HFA] 2 puff INH Q4H PRN 09/13/18 [History] ClonazePAM [KlonoPIN] 1 - 2 tab PO TID PRN 09/13/18 [History] Metoprolol Succinate/HCTZ [Metoprolol ER-Hctz 50-12.5 mg] 1 tab PO DAILY [History] buPROPion HCl [Wellbutrin Xl] 300 mg PO DAILY 09/13/18 [History] Insulin Glarg,Human.Rec.Analog [Lantus Solostar] 40 units SQ BID 11/25/19 [ History] Insulin Lispro [Humalog] 10 units SQ TID 11/25/19 [History] Past Medical History HEENT History: Reports: Other (See Below) Other HEENT History: Vascular loop desease. Other Cardiovascular History: hx of low potassium Respiratory History: Reports: Asthma, COPD, Sleep Apnea Gastrointestinal History: Reports: Diverticulosis, Pancreatitis, Other (See Below) Other Gastrointestinal History: perforated colon [employer] History: Reports: Endometriosis, Musculoskeletal History: Reports: Arthritis Other Musculoskeletal History: shoulder surgery scheduled for 03-16-15 Neurological History: Reports: Speech Problems Psychiatric History: Reports: Anxiety, Depression, PTSD Endocrine/Metabolic History: Reports: Diabetes, Type I, Hypothyroidism, Obesity/ BMI 30+ Other Endocrine/Metabolic History: glucose impaired - prediabetic Immunologic History: Reports: Immunosuppression, Other (See Below) Other Immunologic History: immunosuppression d/t medications Dermatologic History: Reports: Psoriasis - Infectious Disease History Infectious Disease History: Reports: Chicken Pox, Shingles - Past Surgical History Head Surgeries/Procedures: Reports: None Respiratory Surgical History: Reports: None GI Surgical History: Reports: Appendectomy, Cholecystectomy, Colonoscopy, Hernia , Abdominal, Maria G Fundoplication Female Surgical History: Reports: Hysterectomy, Oophorectomy Other Female Surgeries/Procedures: prolapsed bladder Endocrine Surgical History: Reports: None Neurological Surgical History: Reports: None Musculoskeletal Surgical History: Reports: Shoulder Surgery Dermatological Surgical History: Reports: None Social & Family History - Family History Family Medical History: Noncontributory - Tobacco Use Smoking Status *Q: Former Smoker Used Tobacco, but Quit: Yes Month/Year Tobacco Last Used: 2017 Second Hand Smoke Exposure: Yes - Caffeine Use Caffeine Use: Reports: Coffee - Recreational Drug Use Recreational Drug Use: No H&P Review of Systems - Review of Systems: Review Of Systems: See Below General: Reports: Fever, Chills, Malaise, Weakness, Fatigue, Decreased Appetite. Denies: Diaphoresis, Weight Loss, Weight Gain Pulmonary: Reports: Shortness of Breath, Wheezing, Cough, Sputum. Denies: Pleuritic Chest Pain, Hemoptysis Cardiovascular: Reports: Dyspnea on Exertion, Lightheadedness. Denies: Chest Pain, Palpitations, Orthopnea, PND, Syncope, Claudication, Blood Pressure Problem Gastrointestinal: Denies: Abdominal Pain, Nausea, Vomiting Genitourinary: Denies: Dysuria, Frequency, Burning Skin: Denies: Cyanosis, Jaundice Psychiatric: Denies: Confusion, Depression, Mood Lability Neurological: Denies: Confusion, Dizziness Hematologic/Lymphatic: Denies: Anemia, Easy Bleeding Immunologic: Denies: Anaphylaxis Exam - Exam Exam: See Below - Vital Signs Vital Signs: Last Vital Signs Temp 36.6 C 11/24/19 23:30 Pulse 127 H 11/25/19 01:14 Resp 18 11/25/19 01:14 BP 137/77 11/25/19 01:14 Pulse Ox 95 11/25/19 01:14 Weight: 117.9 kg - Exam General: Alert, Oriented Neck: Supple, Trachea Midline Lungs: Decreased Breath Sounds, Wheezing Cardiovascular: Regular Rate, Regular Rhythm, Normal S1, Tachycardia GI/Abdominal Exam: Normal Bowel Sounds, Soft, Non-Tender, No Organomegaly, No Distention Back Exam: Normal Inspection, Full Range of Motion Extremities: Normal Inspection, Normal Range of Motion, Non-Tender, No Pedal Edema, Normal Capillary Refill, Pedal Edema - Patient Data Lab Results Last 24 hrs: Laboratory Results - last 24 hr 11/24/19 11/24/19 11/24/19 Range/Units 23:54 23:54 23:54 WBC 12.3 H (4.5-11.0) K/uL RBC 4.62 (3.30-5.50) M/uL Hgb 13.8 (12.0-15.0) g/dL Hct 41.7 (36.0-48.0) % MCV 90 (80-98) fL MCH 30 (27-31) pg MCHC 33 (32-36) % Plt Count 331 (150-400) K/uL Sodium 138 L (140-148) mmol/L Potassium 4.2 (3.6-5.2) mmol/L Chloride 101 (100-108) mmol/L Carbon Dioxide 26 (21-32) mmol/L Anion Gap 15.2 H (5.0-14.0) mmol/L BUN 16 (7-18) mg/dL Creatinine 1.0 (0.6-1.0) mg/dL Est Cr Clr Drug Dosing 61.61 mL/min Estimated GFR (MDRD) 58 L (>60) Glucose 183 H (74-106) mg/dL Lactic Acid (0.4-2.0) mmol/L Calcium 9.3 (8.5-10.1) mg/dL Magnesium (1.8-2.4) mg/dL TSH, Ultra Sensitive 10.417 H (0.358-3.740) uIU/mL Urine Color (YELLOW) Urine Appearance (CLEAR) Urine pH (5.0-8.0) Ur Specific [place] (1.008-1.030) Urine Protein (NEGATIVE) mg/dL Urine Glucose (UA) (NEGATIVE) mg/dL Urine Ketones (NEGATIVE) mg/dL Urine Occult Blood (NEGATIVE) Urine Nitrite (NEGATIVE) Urine Bilirubin (NEGATIVE) Urine Urobilinogen (0.2-1.0) EU/dL Ur Leukocyte Esterase (NEGATIVE) Urine RBC (0-5) Urine WBC (0-5) Ur Epithelial Cells Amorphous Sediment Urine Bacteria Urine Mucus 11/25/19 11/25/19 11/25/19 Range/Units 00:29 00:33 00:40 WBC (4.5-11.0) K/uL RBC (3.30-5.50) M/uL Hgb (12.0-15.0) g/dL Hct (36.0-48.0) % MCV (80-98) fL MCH (27-31) pg MCHC (32-36) % Plt Count (150-400) K/uL Sodium (140-148) mmol/L Potassium (3.6-5.2) mmol/L Chloride (100-108) mmol/L Carbon Dioxide (21-32) mmol/L Anion Gap (5.0-14.0) mmol/L BUN (7-18) mg/dL Creatinine (0.6-1.0) mg/dL Est Cr Clr Drug Dosing mL/min Estimated GFR (MDRD) (>60) Glucose (74-106) mg/dL Lactic Acid 2.2 H (0.4-2.0) mmol/L Calcium (8.5-10.1) mg/dL Magnesium 1.6 L (1.8-2.4) mg/dL TSH, Ultra Sensitive (0.358-3.740) uIU/mL Urine Color Yellow (YELLOW) Urine Appearance Cloudy A (CLEAR) Urine pH 5.5 (5.0-8.0) Ur Specific [place] >= 1.030 (1.008-1.030) Urine Protein 30 H (NEGATIVE) mg/dL Urine Glucose (UA) Negative (NEGATIVE) mg/dL Urine Ketones Negative (NEGATIVE) mg/dL Urine Occult Blood Negative (NEGATIVE) Urine Nitrite Negative (NEGATIVE) Urine Bilirubin Small H (NEGATIVE) Urine Urobilinogen 1.0 (0.2-1.0) EU/dL Ur Leukocyte Esterase Negative (NEGATIVE) Urine RBC 0-5 (0-5) Urine WBC 0-5 (0-5) Ur Epithelial Cells Many Amorphous Sediment Not seen Urine Bacteria Many Urine Mucus Not seen Result Diagrams: 11/25/19 04:50 11/25/19 04:50 Sepsis Event Note - Evaluation Sepsis Screening Result: No Definite Risk - Focused Exam Vital Signs: Vital Signs Temp Pulse Resp BP Pulse Ox 11/25/19 01:14 127 H 18 137/77 95 11/25/19 00:33 125 H 11/25/19 00:10 130 H 145/80 H 11/24/19 23:30 36.6 C 138 H 24 H 158/87 H 93 L 11/24/19 23:27 36.6 C 138 H 24 H 158/87 H 93 L Date Exam was Performed: 11/25/19 Time Exam was Performed: 16:53 - Problem List (1) COPD (chronic obstructive pulmonary disease) SNOMED Code(s): 02635272 ICD Code: J44.9 - CHRONIC OBSTRUCTIVE PULMONARY DISEASE, UNSPECIFIED Status : Acute Current Visit: Yes (2) Migraine SNOMED Code(s): 64196129 ICD Code: G43.909 - MIGRAINE, UNSP, NOT INTRACTABLE, WITHOUT STATUS MIGRAINOSUS Status: Acute Current Visit: Yes (3) Diabetes SNOMED Code(s): 15641409 ICD Code: E11.9 - TYPE 2 DIABETES MELLITUS WITHOUT COMPLICATIONS Status: Acute Current Visit: Yes (4) Hypertension SNOMED Code(s): 21655047 ICD Code: I10 - ESSENTIAL (PRIMARY) HYPERTENSION Status: Acute Current Visit: Yes (5) Generalized anxiety disorder SNOMED Code(s): 20085772 ICD Code: F41.1 - GENERALIZED ANXIETY DISORDER Status: Acute Current Visit: Yes (6) Hyperlipemia SNOMED Code(s): 05849305 ICD Code: E78.5 - HYPERLIPIDEMIA, UNSPECIFIED Status: Acute Current Visit : Yes (7) Asthma SNOMED Code(s): 690016444 ICD Code: J45.909 - UNSPECIFIED ASTHMA, UNCOMPLICATED Status: Acute Current Visit: Yes (8) Psoriatic arthritis SNOMED Code(s): 540033454 ICD Code: L40.50 - ARTHROPATHIC PSORIASIS, UNSPECIFIED Status: Acute Current Visit: Yes (9) Hypothyroid SNOMED Code(s): 65223370 ICD Code: E03.9 - HYPOTHYROIDISM, UNSPECIFIED Status: Acute Current Visit : Yes (10) Bronchospasm SNOMED Code(s): 5717971 ICD Code: J98.01 - ACUTE BRONCHOSPASM Status: Acute Current Visit: Yes (11) Elevated TSH SNOMED Code(s): 461965530 ICD Code: R79.89 - OTHER SPECIFIED ABNORMAL FINDINGS OF BLOOD CHEMISTRY Status: Acute Current Visit: Yes (12) Hypomagnesemia SNOMED Code(s): 066910812 ICD Code: E83.42 - HYPOMAGNESEMIA Status: Acute Current Visit: Yes (13) Vertigo SNOMED Code(s): 087692571 ICD Code: R42 - DIZZINESS AND GIDDINESS Status: Acute Current Visit: No Problem List Initiated/Reviewed/Updated: Yes Orders Last 24hrs: Active Orders 24 hr Category Date Time Status RT Aerosol Therapy [RC] ASDIRECTED Care 11/25/19 00:15 Active Chest 2V [CR] Stat Exams 11/25/19 00:01 Taken CULTURE BLOOD [BC] Stat Lab 11/25/19 01:25 Received LACTIC ACID [CHEM] Stat Lab 11/25/19 04:30 Ordered Lactated Ringers [Ringers, Lactated] 1,000 ml Med 11/25/19 00:45 Active IV ASDIRECTED Sodium Chloride 0.9% [Saline Flush] Med 11/25/19 00:14 Active 10 ml FLUSH ASDIRECTED PRN Saline Lock Insert [OM.PC] Routine Oth 11/25/19 00:14 Ordered Medication Orders Lactated Ringer's (Ringers, Lactated) 1,000 mls @ 150 mls/hr IV ASDIRECTED JAMES Last Admin: 11/25/19 01:06 Dose: 999 mls/hr Sodium Chloride (Saline Flush) 10 ml FLUSH ASDIRECTED PRN PRN Reason: Keep Vein Open Last Admin: 11/25/19 00:22 Dose: 10 ml Assessment/Plan Comment:: 54-year-old female with a present medical history of COPD, questionable asthma, psoriatic arthritis following with rheumatology, generalized anxiety disorder, migraine, hypothyroidism, hypertension, hyperlipidemia came to the ED with a concerns of cough associated with breathing difficulty and admitted into the hospital with COPD exasperation along with sepsis and inpatient status Patient is not on any maintenance COPD medication DuoNeb 4 times daily scheduled dose, albuterol nebulization as needed Levofloxacin 750 every 24 hourly We will follow blood cultures, urine culture, respiratory sputum cultures Urine results are within normal limit We will supplement magnesium for hypomagnesemia Consult PT OT Patient quit smoking 2 years ago We will continue home insulin dose for diabetes IV prednisone 125 mg once daily CBC CMP, magnesium tomorrow DVT prophylaxis Heparin every 8 hourly GI prophylaxis pantoprazole every 24 hourly CODE STATUS full code IV fluids normal saline 150 mL/h Inpatient status [place] catheter is not indicated
[2019-11-25] MEDS ORDERED: Lactated Ringers 1,000 ML IV ONE (01:54)
[2019-11-25] MEDS ORDERED: Benzonatate 100 MG Cap PO PRN (01:57)
[2019-11-25] MEDS ORDERED: Acetaminophen/HYDROcodone 325-5 MG Tab PO PRN ×2 (01:59→14:08)
[2019-11-25] MEDS ORDERED: Sodium Chloride 0.9% 1,000 ML IV SCH (02:00)
[2019-11-25] MEDS ORDERED: Pantoprazole 40 MG Vial IV SCH (02:00)
[2019-11-25] MEDS ORDERED: ClonazePAM 0.5 MG Tab PO PRN ×2 (02:03→14:08)
[2019-11-25] MEDS ORDERED: Albuterol 0.083% 2.5 MG/3 ML Neb Soln NEB PRN (02:08)
[2019-11-25] MEDS ORDERED: Levofloxacin/Dextrose 5%-Water 750 MG in Premix Bag 1 BAG IV SCH ×2 (02:15→22:00)
[2019-11-25] MEDS: Heparin Sodium 5,000 Units/ML Vial SUBCUT SCH ×3 (02:37→17:15)
[2019-11-25] MEDS: Albuterol/Ipratropium 3.0-0.5 MG/3 ML Neb Soln NEB SCH ×4 (02:44→21:03)
[2019-11-25] MEDS: Insulin Lispro 100 Unit/ML 3 ML KwikPen SUBCUT SCH ×4 (07:22→22:09)
[2019-11-25] MEDS: Levothyroxine 112 MCG Tab PO SCH (08:58)
[2019-11-25] MEDS: buPROPion 150 MG Tab.ER PO SCH (08:58)
[2019-11-25] MEDS: Hydrochlorothiazide 12.5 MG Cap PO SCH (08:58)
[2019-11-25] MEDS: Venlafaxine 75 MG Cap.ER PO SCH (08:59)
[2019-11-25] MEDS: Metoprolol Succinate 50 MG Tab.ER PO SCH (08:59)
[2019-11-25] MEDS: Folic Acid 1 MG Tab PO SCH (08:59)
[2019-11-25] MEDS ORDERED: methylPREDNISolone Sodium Succinate 125 MG/2 ML SDV IVPUSH SCH (09:00)
--- NOTE | 2019-11-25 09:21 | CR ---
CHEST: 2 view CLINICAL HISTORY:SOB COMPARISON:None FINDINGS: The heart size, pulmonary vascular and hilar structures are normal. There is minimal patchy density in the lingula near the cardiac apex. This may be acute or chronic Minimal blunting left costophrenic angle. IMPRESSION: Minimal patchy density in the lingula with slight blunting of the costophrenic angle. Small pneumonic infiltrate is not excluded.
[2019-11-25] MEDS: Lactobacillus Rhamnosus GG (Probiotic) Cap PO SCH ×2 (10:15→21:01)
[2019-11-25] MEDS ORDERED: Glucose Gel 15 GM in 37.5 GM Tube PO PRN (14:11)
[2019-11-25] MEDS ORDERED: 50% Dextrose in Water 50 ML Syringe IV PRN (14:11)
--- NOTE | 2019-11-25 14:29 | PCM.PN ---
- General Info Date of Service: 11/25/19 Subjective Update: Ms. Heron Blakely is admitted early this morning with shortness of breath and cough secondary to COPD exacerbation with underlying bronchitis. Symptoms that developed over the past few days until she presented to the emergency department late last night. Chest x-ray shows only possible minimal patchy infiltrate. Oxygenation is currently adequate on room air she feels significantly improved from admission. Functional Status: Reports: Tolerating Diet, Ambulating, Urinating - Review of Systems General: Reports: Weakness, Malaise. Denies: Fever, Chills Pulmonary: Reports: Shortness of Breath, Cough, Wheezing. Denies: Pleuritic Chest Pain, Sputum, Hemoptysis Cardiovascular: Reports: Dyspnea on Exertion. Denies: Chest Pain, Palpitations , Orthopnea, PND, Edema, Lightheadedness Gastrointestinal: Reports: No Symptoms - Patient Data Vitals - Most Recent: Last Vital Signs Temp 96.9 F 11/25/19 11:26 Pulse 99 11/25/19 14:00 Resp 18 11/25/19 11:26 BP 133/64 11/25/19 11:26 Pulse Ox 95 11/25/19 14:00 Weight - Most Recent: 261 lb 9.608 oz I&O - Last 24 Hours: Intake & Output 11/24/19 11/25/19 11/25/19 22:59 06:59 14:59 Intake Total 150 500 Output Total 1050 700 Balance -900 -200 Lab Results Last 24 Hours: Laboratory Results - last 24 hr 11/24/19 11/24/19 11/24/19 Range/Units 23:54 23:54 23:54 WBC 12.3 H (4.5-11.0) K/uL RBC 4.62 (3.30-5.50) M/uL Hgb 13.8 (12.0-15.0) g/dL Hct 41.7 (36.0-48.0) % MCV 90 (80-98) fL MCH 30 (27-31) pg MCHC 33 (32-36) % Plt Count 331 (150-400) K/uL Sodium 138 L (140-148) mmol/L Potassium 4.2 (3.6-5.2) mmol/L Chloride 101 (100-108) mmol/L Carbon Dioxide 26 (21-32) mmol/L Anion Gap 15.2 H (5.0-14.0) mmol/L BUN 16 (7-18) mg/dL Creatinine 1.0 (0.6-1.0) mg/dL Est Cr Clr Drug Dosing 61.61 mL/min Estimated GFR (MDRD) 58 L (>60) Glucose 183 H (74-106) mg/dL Lactic Acid (0.4-2.0) mmol/L Calcium 9.3 (8.5-10.1) mg/dL Magnesium (1.8-2.4) mg/dL Total Bilirubin (0.2-1.0) mg/dL AST (15-37) U/L ALT (12-78) U/L Alkaline Phosphatase (46-116) U/L Total Protein (6.4-8.2) g/dL Albumin (3.4-5.0) g/dL Globulin (2.3-3.5) g/dL Albumin/Globulin Ratio (1.2-2.2) TSH, Ultra Sensitive 10.417 H (0.358-3.740) uIU/mL Urine Color (YELLOW) Urine Appearance (CLEAR) Urine pH (5.0-8.0) Ur Specific [place] (1.008-1.030) Urine Protein (NEGATIVE) mg/dL Urine Glucose (UA) (NEGATIVE) mg/dL Urine Ketones (NEGATIVE) mg/dL Urine Occult Blood (NEGATIVE) Urine Nitrite (NEGATIVE) Urine Bilirubin (NEGATIVE) Urine Urobilinogen (0.2-1.0) EU/dL Ur Leukocyte Esterase (NEGATIVE) Urine RBC (0-5) Urine WBC (0-5) Ur Epithelial Cells Amorphous Sediment Urine Bacteria Urine Mucus 11/25/19 11/25/19 11/25/19 Range/Units 00:29 00:33 00:40 WBC (4.5-11.0) K/uL RBC (3.30-5.50) M/uL Hgb (12.0-15.0) g/dL Hct (36.0-48.0) % MCV (80-98) fL MCH (27-31) pg MCHC (32-36) % Plt Count (150-400) K/uL Sodium (140-148) mmol/L Potassium (3.6-5.2) mmol/L Chloride (100-108) mmol/L Carbon Dioxide (21-32) mmol/L Anion Gap (5.0-14.0) mmol/L BUN (7-18) mg/dL Creatinine (0.6-1.0) mg/dL Est Cr Clr Drug Dosing mL/min Estimated GFR (MDRD) (>60) Glucose (74-106) mg/dL Lactic Acid 2.2 H (0.4-2.0) mmol/L Calcium (8.5-10.1) mg/dL Magnesium 1.6 L (1.8-2.4) mg/dL Total Bilirubin (0.2-1.0) mg/dL AST (15-37) U/L ALT (12-78) U/L Alkaline Phosphatase (46-116) U/L Total Protein (6.4-8.2) g/dL Albumin (3.4-5.0) g/dL Globulin (2.3-3.5) g/dL Albumin/Globulin Ratio (1.2-2.2) TSH, Ultra Sensitive (0.358-3.740) uIU/mL Urine Color Yellow (YELLOW) Urine Appearance Cloudy A (CLEAR) Urine pH 5.5 (5.0-8.0) Ur Specific [place] >= 1.030 (1.008-1.030) Urine Protein 30 H (NEGATIVE) mg/dL Urine Glucose (UA) Negative (NEGATIVE) mg/dL Urine Ketones Negative (NEGATIVE) mg/dL Urine Occult Blood Negative (NEGATIVE) Urine Nitrite Negative (NEGATIVE) Urine Bilirubin Small H (NEGATIVE) Urine Urobilinogen 1.0 (0.2-1.0) EU/dL Ur Leukocyte Esterase Negative (NEGATIVE) Urine RBC 0-5 (0-5) Urine WBC 0-5 (0-5) Ur Epithelial Cells Many Amorphous Sediment Not seen Urine Bacteria Many Urine Mucus Not seen 11/25/19 11/25/19 11/25/19 Range/Units 04:50 04:50 04:50 WBC 9.2 (4.5-11.0) K/uL RBC 4.32 (3.30-5.50) M/uL Hgb 12.9 (12.0-15.0) g/dL Hct 39.1 (36.0-48.0) % MCV 91 (80-98) fL MCH 30 (27-31) pg MCHC 33 (32-36) % Plt Count 260 (150-400) K/uL Sodium 136 L (140-148) mmol/L Potassium 4.1 (3.6-5.2) mmol/L Chloride 100 (100-108) mmol/L Carbon Dioxide 26 (21-32) mmol/L Anion Gap 14.1 H (5.0-14.0) mmol/L BUN 15 (7-18) mg/dL Creatinine 1.0 (0.6-1.0) mg/dL Est Cr Clr Drug Dosing 61.61 mL/min Estimated GFR (MDRD) 58 L (>60) Glucose 333 H (74-106) mg/dL Lactic Acid 1.8 (0.4-2.0) mmol/L Calcium 8.9 (8.5-10.1) mg/dL Magnesium 1.7 L (1.8-2.4) mg/dL Total Bilirubin 0.4 (0.2-1.0) mg/dL AST 28 (15-37) U/L ALT 53 (12-78) U/L Alkaline Phosphatase 57 (46-116) U/L Total Protein 7.6 (6.4-8.2) g/dL Albumin 3.0 L (3.4-5.0) g/dL Globulin 4.6 H (2.3-3.5) g/dL Albumin/Globulin Ratio 0.7 L (1.2-2.2) TSH, Ultra Sensitive (0.358-3.740) uIU/mL Urine Color (YELLOW) Urine Appearance (CLEAR) Urine pH (5.0-8.0) Ur Specific [place] (1.008-1.030) Urine Protein (NEGATIVE) mg/dL Urine Glucose (UA) (NEGATIVE) mg/dL Urine Ketones (NEGATIVE) mg/dL Urine Occult Blood (NEGATIVE) Urine Nitrite (NEGATIVE) Urine Bilirubin (NEGATIVE) Urine Urobilinogen (0.2-1.0) EU/dL Ur Leukocyte Esterase (NEGATIVE) Urine RBC (0-5) Urine WBC (0-5) Ur Epithelial Cells Amorphous Sediment Urine Bacteria Urine Mucus Med Orders - Current: Current Medications Acetaminophen (Tylenol) 650 mg PO Q4H PRN PRN Reason: Pain (Mild 1-3)/fever Hydrocodone Bitart/Acetaminophen ([place] 325-5 Mg) 1 tab PO Q4H PRN PRN Reason: Pain Albuterol (Proventil Neb Soln) 2.5 mg NEB Q4H PRN PRN Reason: Shortness of Breath Albuterol/Ipratropium (Duoneb 3.0-0.5 Mg/3 Ml) 3 ml NEB Q6H [facility] Last Admin: 11/25/19 14:00 Dose: 3 ml Benzonatate (Tessalon Perles) 200 mg PO TID PRN PRN Reason: Cough Bupropion HCl (Wellbutrin Xl) 300 mg PO DAILY [facility] Last Admin: 11/25/19 08:58 Dose: 300 mg Clonazepam (Klonopin) 0.5 mg PO TID PRN PRN Reason: Anxiety Dextrose (Glutose 15) 15 gm PO ONETIME PRN PRN Reason: Hypoglycemia Dextrose/Water (Dextrose 50% In Water) 50 ml IV ONETIME PRN PRN Reason: Hypoglycemia Folic Acid (Folic Acid) 1 mg PO DAILY [facility] Last Admin: 11/25/19 08:59 Dose: 1 mg Heparin Sodium (Porcine) (Heparin Sodium) 5,000 units SUBCUT Q8H [facility] Last Admin: 11/25/19 09:05 Dose: 5,000 units Hydrochlorothiazide (Hydrochlorothiazide) 12.5 mg PO DAILY [facility] Last Admin: 11/25/19 08:58 Dose: 12.5 mg Levofloxacin/Dextrose 750 mg/ (Premix) 150 mls @ 100 mls/hr IV Q24H [facility] Magnesium Sulfate 2 gm/ Premix 50 mls @ 25 mls/hr IV ONETIME ONE Stop: 11/25/19 16:59 Insulin Glargine (Lantus Solostar) 40 units SUBCUT BEDTIME [facility] Insulin Glargine (Lantus Solostar) 40 units SUBCUT BID [facility] Insulin Human Lispro (Humalog) 0 unit SUBCUT QIDACANDBED [facility]; Protocol Lactobacillus Rhamnosus (Culturelle) 1 cap PO BID [facility] Last Admin: 11/25/19 10:15 Dose: 1 cap Levothyroxine Sodium (Levothyroxine) 112 mcg PO DAILY@0730 [facility] Last Admin: 11/25/19 08:58 Dose: 112 mcg Magnesium Oxide (Magnesium Oxide) 400 mg PO BID [facility] Methotrexate (Methotrexate) 15 mg PO Ablerts@0900 [facility] Methylprednisolone Sodium Succinate (Solu-Medrol) 40 mg IVPUSH Q8H [facility] Metoprolol Succinate (Toprol Xl) 50 mg PO DAILY [facility] Last Admin: 11/25/19 08:59 Dose: 50 mg Simponi 50 Mg Ptom () 0 mg SUBCUT Q28D [facility] Ondansetron HCl (Zofran) 4 mg IV Q4H PRN PRN Reason: Nausea/Vomiting Pantoprazole Sodium (Protonix) 40 mg PO BEDTIME [facility] Senna/Docusate Sodium (Senna Plus) 1 tab PO BID PRN PRN Reason: Constipation Sodium Chloride (Saline Flush) 10 ml FLUSH ASDIRECTED PRN PRN Reason: Keep Vein Open Last Admin: 11/25/19 00:22 Dose: 10 ml Venlafaxine HCl (Effexor Xr) 150 mg PO DAILY [facility] Last Admin: 11/25/19 08:59 Dose: 150 mg Discontinued Medications Hydrocodone Bitart/Acetaminophen ([place] 325-5 Mg) 1 tab PO Q6H PRN PRN Reason: Pain Albuterol/Ipratropium (Duoneb 3.0-0.5 Mg/3 Ml) 3 ml NEB ONETIME ONE Stop: 11/25/19 00:16 Last Admin: 11/25/19 00:20 Dose: 3 ml Clonazepam (Klonopin) 0.5 mg PO TID PRN PRN Reason: Anxiety Last Admin: 11/25/19 05:41 Dose: 0.5 mg Lactated Ringer's (Ringers, Lactated) 1,000 mls @ 150 mls/hr IV ASDIRECTED [facility] Last Admin: 11/25/19 01:06 Dose: 999 mls/hr Lactated Ringer's (Ringers, Lactated) 1,000 mls @ 500 mls/hr IV BOLUS ONE Stop: 11/25/19 03:53 Last Admin: 11/25/19 02:28 Dose: 500 mls/hr Sodium Chloride (Normal Saline) 1,000 mls @ 150 mls/hr IV ASDIRECTED [facility] Last Admin: 11/25/19 06:18 Dose: 150 mls/hr Levofloxacin/Dextrose 750 mg/ (Premix) 150 mls @ 100 mls/hr IV Q24H [facility] Last Admin: 11/25/19 02:48 Dose: 100 mls/hr Insulin Glargine (Lantus Solostar) 35 units SUBCUT NOW STA Stop: 11/25/19 00:49 Last Admin: 11/25/19 01:05 Dose: 35 unit Insulin Human Lispro (Humalog) 0 unit SUBCUT TIDMEALS [facility]; Protocol Last Admin: 11/25/19 11:32 Dose: 4 units Magnesium Oxide (Magnesium Oxide) 800 mg PO ONETIME ONE Stop: 11/25/19 00:49 Last Admin: 11/25/19 01:06 Dose: 800 mg Methylprednisolone Sodium Succinate (Solu-Medrol) 125 mg IVPUSH ONETIME ONE Stop: 11/25/19 00:55 Last Admin: 11/25/19 01:06 Dose: 125 mg Methylprednisolone Sodium Succinate (Solu-Medrol) 125 mg IVPUSH DAILY [facility] Last Admin: 11/25/19 08:58 Dose: 125 mg Pantoprazole Sodium (Protonix Iv) 40 mg IV Q24H [facility] Last Admin: 11/25/19 02:37 Dose: 40 mg - Exam Quality Assessment: DVT Prophylaxis. No: Supplemental Oxygen General: Alert, Oriented, Cooperative, Mild Distress Lungs: Decreased Breath Sounds, Wheezing. No: Rales, Rhonchi, Rub Cardiovascular: Regular Rate, Regular Rhythm, No Murmurs GI/Abdominal Exam: Soft, Non-Tender, No Organomegaly, No Distention Extremities: Non-Tender, No Pedal Edema Sepsis Event Note - Evaluation Sepsis Screening Result: No Definite Risk - Focused Exam Vital Signs: Vital Signs Temp Pulse Pulse Resp BP BP Pulse Ox 11/25/19 14:00 99 11/25/19 13:40 95 11/25/19 11:26 96.9 F 92 18 133/64 93 L 11/25/19 08:59 98 119/66 11/25/19 08:01 98 11/25/19 07:25 95.6 F L 98 18 119/66 93 L 11/25/19 07:19 92 L 11/25/19 02:30 98.6 F 100 18 151/74 H 96 Pulse Ox 11/25/19 14:00 95 11/25/19 13:40 11/25/19 11:26 11/25/19 08:59 11/25/19 08:01 11/25/19 07:25 11/25/19 07:19 11/25/19 02:30 Date Exam was Performed: 11/25/19 Time Exam was Performed: 14:23 - Problem List Review Problem List Initiated/Reviewed/Updated: Yes - My Orders Last 24 Hours: My Active Orders 11/25/19 09:45 Lactobacillus Rhamnosus GG [Culturelle] 1 cap PO BID 11/25/19 14:07 Convert IV to Saline Lock [OM.PC] Routine 11/25/19 14:08 Acetaminophen/HYDROcodone [Providence 325-5 MG] 1 tab PO Q4H PRN ClonazePAM [KlonoPIN] 0.5 mg PO TID PRN 11/25/19 14:11 Dextrose 50% in Water 50 ml IV ONETIME PRN Dextrose [Glutose 15] 15 gm PO ONETIME PRN 11/25/19 14:12 Communication Order [RC] STAT Diabetes Education [RC] Click to Edit Notify Provider [RC] PRN 11/25/19 14:16 Magnesium Sulfate/Water [Magnesium Sulfate in Water Premix] 2 gm Premix Bag 1 bag IV ONETIME 11/25/19 14:30 Magnesium Oxide 400 mg PO BID 11/25/19 16:30 GLUCOSE POC LAB TO COLLECT [POC] QIDACANDBED 11/25/19 17:00 Insulin Lispro [HumaLOG] See Protocol SUBCUT QIDACANDBED methylPREDNISolone Sod Succ [Solu-MEDROL] 40 mg IVPUSH Q8H 11/25/19 21:00 GLUCOSE POC LAB TO COLLECT [POC] QIDACANDBED Insulin Glarg,Human.Rec.Analog [LantUS Solostar] 40 units SUBCUT BID 11/26/19 05:00 BASIC METABOLIC PANEL,BMP [CHEM] Timed MAGNESIUM [CHEM] Timed 11/26/19 07:30 GLUCOSE POC LAB TO COLLECT [POC] QIDACANDBED 11/26/19 11:30 GLUCOSE POC LAB TO COLLECT [POC] QIDACANDBED 11/26/19 16:30 GLUCOSE POC LAB TO COLLECT [POC] QIDACANDBED 11/26/19 21:00 GLUCOSE POC LAB TO COLLECT [POC] QIDACANDBED 11/27/19 07:30 GLUCOSE POC LAB TO COLLECT [POC] QIDACANDBED 11/27/19 11:30 GLUCOSE POC LAB TO COLLECT [POC] QIDACANDBED 02/20/20 16:30 GLUCOSE POC LAB TO COLLECT [POC] QIDACANDBED 11/27/19 21:00 GLUCOSE POC LAB TO COLLECT [POC] QIDACANDBED 11/28/19 07:30 GLUCOSE POC LAB TO COLLECT [POC] QIDACANDBED 11/28/19 11:30 GLUCOSE POC LAB TO COLLECT [POC] QIDACANDBED - Plan Plan:: ASSESSMENT AND PLAN COPD EXACERBATION WITH UNDERLYING BRONCHITIS-improved from admission with less shortness of breath, currently has adequate oxygenation on room air. -Supplemental oxygen as needed -Nebulizer therapy as needed -Solu-Medrol 40 mg IV every 8 hours -Levofloxacin 750 mg IV every 24 hours TYPE 2 DIABETES MELLITUS-glucose levels will likely be elevated from baseline because of current therapy with Solu-Medrol -Continue Lantus insulin 40 units subcu twice daily -4 times daily glucometers -High-dose sliding scale Humalog MAINTENANCE ISSUES -DVT prophylaxis; continue current therapy with heparin -GI prophylaxis; not indicated -[place] catheter; not indicated -Nutrition; consistent carb diet -Nicotine dependence; not required CODE STATUS-FULL CODE ADMISSION STATUS-patient will be admitted to inpatient status, expect at least a 2 night hospital stay for evaluation and management of problems as outlined above. At the time of this admission I do not reasonably expected evaluation and management of this problem will require more than a 96 hour hospital stay. DISPOSITION-anticipate discharge to home after the hospital stay. PRIMARY CARE PROVIDER-Dr. Ojeda
[2019-11-25] MEDS ORDERED: Magnesium Sulfate/Water 2 GM in Premix Bag 1 BAG IV ONE (15:00)
[2019-11-25] MEDS: Magnesium Oxide 400 MG Tab PO SCH ×2 (15:26→21:01)
[2019-11-25] MEDS: methylPREDNISolone Sodium Succinate 40 MG/1 ML SDV IVPUSH SCH (17:15)
[2019-11-25] MEDS ORDERED: Insulin Lispro 100 Unit/ML 3 ML KwikPen SUBCUT ONE (20:49)
[2019-11-25] MEDS ORDERED: Pantoprazole 40 MG Tab.CR PO SCH (21:00)
[2019-11-25] MEDS ORDERED: Insulin Glargine,Human Rec. Analog 100 Units/ML 3 ML Pen SUBCUT SCH (21:00)
[2019-11-25] MEDS: Insulin Glargine,Human Rec. Analog 100 Units/ML 3 ML Pen SUBCUT SCH (21:02)
[2019-11-26] MEDS: methylPREDNISolone Sodium Succinate 40 MG/1 ML SDV IVPUSH SCH (00:12)
[2019-11-26] MEDS: Heparin Sodium 5,000 Units/ML Vial SUBCUT SCH ×2 (01:51→10:08)
[2019-11-26] MEDS: Albuterol/Ipratropium 3.0-0.5 MG/3 ML Neb Soln NEB SCH ×2 (01:52→07:30)
[2019-11-26 07:12] VITALS: BP 113/52; PULSE 92
[2019-11-26] MEDS: Insulin Lispro 100 Unit/ML 3 ML KwikPen SUBCUT SCH ×2 (07:45→11:29)
[2019-11-26] MEDS: Levothyroxine 112 MCG Tab PO SCH (07:49)
[2019-11-26] MEDS: Venlafaxine 75 MG Cap.ER PO SCH (08:32)
[2019-11-26] MEDS: Folic Acid 1 MG Tab PO SCH (08:32)
[2019-11-26] MEDS: Lactobacillus Rhamnosus GG (Probiotic) Cap PO SCH (08:32)
[2019-11-26] MEDS: Hydrochlorothiazide 12.5 MG Cap PO SCH (08:33)
[2019-11-26] MEDS: Metoprolol Succinate 50 MG Tab.ER PO SCH (08:33)
[2019-11-26] MEDS: buPROPion 150 MG Tab.ER PO SCH (08:34)
[2019-11-26] MEDS: Magnesium Oxide 400 MG Tab PO SCH (08:34)
[2019-11-26] MEDS: Insulin Glargine,Human Rec. Analog 100 Units/ML 3 ML Pen SUBCUT SCH (08:39)
--- NOTE | 2019-11-26 10:11 | PCM.DCSUM1 ---
Discharge Summary - Hospital Course Brief History: Ms. Campbell is a 54-year-old woman who was admitted through the emergency department with weakness, shortness of breath, cough, secondary to COPD exacerbation with underlying bronchitis. - Discharge Data Discharge Date: 11/26/19 Discharge Disposition: Home, Self-Care 01 Condition: Stable - Referral to Home Health Primary Care Physician: Hung Ojeda MD - Discharge Diagnosis/Problem(s) (1) COPD with acute exacerbation SNOMED Code(s): 196811054 ICD Code: J44.1 - CHRONIC OBSTRUCTIVE PULMONARY DISEASE W (ACUTE) EXACERBATION Status: Acute Current Visit: Yes (2) Bronchitis SNOMED Code(s): 83491175 ICD Code: J40 - BRONCHITIS, NOT SPECIFIED ACUTE OR CHRONIC Status: Acute Current Visit: Yes (3) Type 2 diabetes mellitus SNOMED Code(s): 51143169 ICD Code: E11.9 - TYPE 2 DIABETES MELLITUS WITHOUT COMPLICATIONS Status: Acute Current Visit: Yes (4) Psoriatic arthritis SNOMED Code(s): 227436271 ICD Code: L40.50 - ARTHROPATHIC PSORIASIS, UNSPECIFIED Status: Acute Current Visit: Yes - Patient Summary/Data Consults: Consultations 11/25/19 01:46 OT Evaluation and Treatment [CONS] Routine Please Evaluate and Treat. OT Reason for Consult: Strengthening This query below is only for informational purposes and is not editable. PT Evaluation and Treatment [CONS] Routine Please Evaluate and Treat. PT Reason for Consult: Strengthening This query below is only for informational purposes and is not editable. Hospital Course: Ms. Campbell is a 54-year-old female with medical history of diabetes, COPD , questionable asthma, psoriatic arthritis, hypothyroidism, generalized anxiety disorder, previous smoker, hypertension, hyperlipidemia came to the ED with a concerns of cough associated with breathing difficulty which started since last 1 week. Patient reports that she had diarrheal episode associated with runny nose 2 weeks prior to the ED visit which resolved on its own. Patient reports that breathing difficulty started since last 1 week which is gradually progressing. Patient denies any blood in the sputum. Patient is compliant with the albuterol nebulization for underlying COPD. patient had oral thrush side effects with corticosteroid inhaler medication. And is not on any maintenance COPD medications. Denies any chest pain, exertional chest pain, headaches, dizziness, lightheadedness, disturbance in bowel and bladder habits. In the ED patient x-rays did not show any pneumonia. Patient saturations are low 90s in room air. Patient WBC count is elevated and lactic acid is 2.2. Patient is a full code. Other review of systems are not significant. On admission she was given IV fluids for hydration, IV antibiotic therapy with levofloxacin and IV Solu-Medrol, in addition to nebulizer therapy. Over the course of the next 24 hours she experienced significant improvement in symptoms and was back to baseline at the time of discharge. She had been admitted as an inpatient, and improved more quickly than expected so she will be discharged before a 2 night hospital stay. Blood glucose levels were monitored throughout her hospital stay and she was continued on her usual dose of long-acting insulin. Blood sugars were elevated secondary to concurrent glucocorticoid therapy. It is expected that diabetes control will improve when she is off of the oral prednisone. She will be discharged home with an additional 4 days of oral antibiotic therapy with levofloxacin and an additional 3 days of prednisone. Activity will be as tolerated and she will resume her usual consistent carb diet. Follow-up appointment will be scheduled with her primary care provider within 1 week. - Patient Instructions Diet: Diabetic Diet Activity: As Tolerated Other/Special Instructions: Please schedule follow-up appointment with primary care provider within 1 week. - Discharge Plan *PRESCRIPTION DRUG MONITORING PROGRAM REVIEWED*: Not Applicable *COPY OF PRESCRIPTION DRUG MONITORING REPORT IN PATIENT JIM: Not Applicable Prescriptions/Med Rec: Lactobacillus Rhamnosus GG [Culturelle] 1 cap PO BID #60 cap Levofloxacin [Levaquin] 750 mg PO DAILY #4 tablet predniSONE 40 mg PO DAILY #6 tab Home Medications: Home Meds Cholecalciferol (Vitamin D3) [Vitamin D3] 50,000 unit PO Q30D 03/03/15 [History] Folic Acid 1 mg PO DAILY 03/03/15 [History] Hydrocodone/Acetaminophen [Hydrocodon-Acetaminophen 5-325] 1 tab PO ASDIRECTED PRN 02/13/17 [History] Albuterol [Proventil] 1 dose INH Q4H PRN 12/22/17 [History] Golimumab [Simponi] 50 mg SUBCUT ASDIRECTED 12/22/17 [History] Levothyroxine 1 tab PO DAILY 12/22/17 [History] Methotrexate 6 tab PO ASDIRECTED 12/22/17 [History] Venlafaxine HCl [Venlafaxine ER] 150 mg PO DAILY 12/22/17 [History] predniSONE [Prednisone] 1 tab PO ASDIRECTED 12/22/17 [History] Albuterol [Ventolin HFA] 2 puff INH Q4H PRN 09/13/18 [History] ClonazePAM [KlonoPIN] 1 - 2 tab PO TID PRN 09/13/18 [History] Metoprolol Succinate/HCTZ [Metoprolol ER-Hctz 50-12.5 mg] 1 tab PO DAILY [History] buPROPion HCl [Wellbutrin Xl] 300 mg PO DAILY 09/13/18 [History] Insulin Glarg,Human.Rec.Analog [Lantus Solostar] 40 units SQ BID 11/25/19 [ History] Insulin Lispro [Humalog] 10 units SQ TID 11/25/19 [History] Lactobacillus Rhamnosus GG [Culturelle] 1 cap PO BID #60 cap 11/26/19 [Rx] Levofloxacin [Levaquin] 750 mg PO DAILY #4 tablet 11/26/19 [Rx] predniSONE 40 mg PO DAILY #6 tab 11/26/19 [Rx] Patient Handouts: Chronic Obstructive Pulmonary Disease Exacerbation, Easy-to- Read Referrals: Hung Ojeda MD [Primary Care Provider] - 12/03/19 1:30 pm (Please arrive 15 minutes early to register for your appointment.) - Discharge Summary/Plan Comment DC Time >30 min.: No - Patient Data Vitals - Most Recent: Last Vital Signs Temp 97.0 F 11/26/19 07:11 Pulse 92 11/26/19 08:33 Resp 15 11/26/19 07:11 BP 113/52 L 11/26/19 08:33 Pulse Ox 94 L 11/26/19 07:11 Weight - Most Recent: 264 lb 9.6 oz I&O - Last 24 hours: Intake & Output 11/25/19 11/26/19 11/26/19 22:59 06:59 14:59 Intake Total 3021 1680 240 Output Total 1900 1900 Balance 1121 -220 240 Lab Results - Last 24 hrs: Laboratory Results - last 24 hr 11/26/19 Range/Units 05:00 Sodium 134 L (140-148) mmol/L Potassium 4.1 (3.6-5.2) mmol/L Chloride 101 (100-108) mmol/L Carbon Dioxide 20 L (21-32) mmol/L Anion Gap 17.1 H (5.0-14.0) mmol/L BUN 15 (7-18) mg/dL Creatinine 1.1 H (0.6-1.0) mg/dL Est Cr Clr Drug Dosing 56.31 mL/min Estimated GFR (MDRD) 52 L (>60) Glucose 351 H (74-106) mg/dL Calcium 8.7 (8.5-10.1) mg/dL Magnesium 2.0 (1.8-2.4) mg/dL FERMIN Results - Last 24 hrs: Microbiology 11/25/19 01:56 Urine Culture - Preliminary Urine, Clean Catch MIXED POSITIVE ALFONSO DAY 1 11/25/19 01:25 Aerobic Blood Culture - Preliminary Blood - Arm, Left NO GROWTH AFTER 1 DAY Anaerobic Blood Culture - Preliminary NO GROWTH AFTER 1 DAY Med Orders - Current: Current Medications Acetaminophen (Tylenol) 650 mg PO Q4H PRN PRN Reason: Pain (Mild 1-3)/fever Hydrocodone Bitart/Acetaminophen (Fields 325-5 Mg) 1 tab PO Q4H PRN PRN Reason: Pain Albuterol (Proventil Neb Soln) 2.5 mg NEB Q4H PRN PRN Reason: Shortness of Breath Albuterol/Ipratropium (Duoneb 3.0-0.5 Mg/3 Ml) 3 ml NEB Q6H [facility] Last Admin: 11/26/19 07:30 Dose: 3 ml Benzonatate (Tessalon Perles) 200 mg PO TID PRN PRN Reason: Cough Bupropion HCl (Wellbutrin Xl) 300 mg PO DAILY [facility] Last Admin: 11/26/19 08:34 Dose: 300 mg Clonazepam (Klonopin) 0.5 mg PO TID PRN PRN Reason: Anxiety Last Admin: 11/25/19 18:19 Dose: 0.5 mg Dextrose (Glutose 15) 15 gm PO ASDIRECTED PRN PRN Reason: Hypoglycemia Dextrose/Water (Dextrose 50% In Water) 50 ml IV ASDIRECTED PRN PRN Reason: Hypoglycemia Folic Acid (Folic Acid) 1 mg PO DAILY [facility] Last Admin: 11/26/19 08:32 Dose: 1 mg Heparin Sodium (Porcine) (Heparin Sodium) 5,000 units SUBCUT Q8H [facility] Last Admin: 11/26/19 01:51 Dose: 5,000 units Hydrochlorothiazide (Hydrochlorothiazide) 12.5 mg PO DAILY [facility] Last Admin: 11/26/19 08:33 Dose: 12.5 mg Levofloxacin/Dextrose 750 mg/ (Premix) 150 mls @ 100 mls/hr IV Q24H [facility] Last Admin: 11/25/19 21:08 Dose: 100 mls/hr Insulin Glargine (Lantus Solostar) 40 units SUBCUT BID [facility] Last Admin: 11/26/19 08:39 Dose: 40 unit Insulin Human Lispro (Humalog) 0 unit SUBCUT QIDACANDBED [facility]; Protocol Last Admin: 11/26/19 07:45 Dose: 9 units Lactobacillus Rhamnosus (Culturelle) 1 cap PO BID [facility] Last Admin: 11/26/19 08:32 Dose: 1 cap Levothyroxine Sodium (Levothyroxine) 112 mcg PO DAILY@0730 [facility] Last Admin: 11/26/19 07:49 Dose: 112 mcg Magnesium Oxide (Magnesium Oxide) 400 mg PO BID [facility] Last Admin: 11/26/19 08:34 Dose: 400 mg Methotrexate (Methotrexate) 15 mg PO Alberts@0900 [facility] Metoprolol Succinate (Toprol Xl) 50 mg PO DAILY [facility] Last Admin: 11/26/19 08:33 Dose: 50 mg Simponi 50 Mg Ptom () 0 mg SUBCUT Q28D [facility] Ondansetron HCl (Zofran) 4 mg IV Q4H PRN PRN Reason: Nausea/Vomiting Pantoprazole Sodium (Protonix) 40 mg PO BEDTIME [facility] Last Admin: 11/25/19 21:01 Dose: 40 mg Prednisone (Prednisone) 40 mg PO WITHBREAKFAST [facility] Senna/Docusate Sodium (Senna Plus) 1 tab PO BID PRN PRN Reason: Constipation Sodium Chloride (Saline Flush) 10 ml FLUSH ASDIRECTED PRN PRN Reason: Keep Vein Open Last Admin: 11/25/19 00:22 Dose: 10 ml Venlafaxine HCl (Effexor Xr) 150 mg PO DAILY [facility] Last Admin: 11/26/19 08:32 Dose: 150 mg Discontinued Medications Hydrocodone Bitart/Acetaminophen (Fields 325-5 Mg) 1 tab PO Q6H PRN PRN Reason: Pain Albuterol/Ipratropium (Duoneb 3.0-0.5 Mg/3 Ml) 3 ml NEB ONETIME ONE Stop: 11/25/19 00:16 Last Admin: 11/25/19 00:20 Dose: 3 ml Clonazepam (Klonopin) 0.5 mg PO TID PRN PRN Reason: Anxiety Last Admin: 11/25/19 05:41 Dose: 0.5 mg Lactated Ringer's (Ringers, Lactated) 1,000 mls @ 150 mls/hr IV ASDIRECTED [facility] Last Admin: 11/25/19 01:06 Dose: 999 mls/hr Lactated Ringer's (Ringers, Lactated) 1,000 mls @ 500 mls/hr IV BOLUS ONE Stop: 11/25/19 03:53 Last Admin: 11/25/19 02:28 Dose: 500 mls/hr Sodium Chloride (Normal Saline) 1,000 mls @ 150 mls/hr IV ASDIRECTED [facility] Last Admin: 11/25/19 06:18 Dose: 150 mls/hr Levofloxacin/Dextrose 750 mg/ (Premix) 150 mls @ 100 mls/hr IV Q24H [facility] Last Admin: 11/25/19 02:48 Dose: 100 mls/hr Magnesium Sulfate 2 gm/ Premix 50 mls @ 25 mls/hr IV ONETIME ONE Stop: 11/25/19 16:59 Last Admin: 11/25/19 15:26 Dose: 25 mls/hr Insulin Glargine (Lantus Solostar) 35 units SUBCUT NOW STA Stop: 11/25/19 00:49 Last Admin: 11/25/19 01:05 Dose: 35 unit Insulin Human Lispro (Humalog) 0 unit SUBCUT TIDMEALS [facility]; Protocol Last Admin: 11/25/19 11:32 Dose: 4 units Insulin Human Lispro (Humalog) 18 unit SUBCUT ONETIME ONE Stop: 11/25/19 20:50 Last Admin: 11/25/19 21:02 Dose: 18 units Magnesium Oxide (Magnesium Oxide) 800 mg PO ONETIME ONE Stop: 11/25/19 00:49 Last Admin: 11/25/19 01:06 Dose: 800 mg Methylprednisolone Sodium Succinate (Solu-Medrol) 125 mg IVPUSH ONETIME ONE Stop: 11/25/19 00:55 Last Admin: 11/25/19 01:06 Dose: 125 mg Methylprednisolone Sodium Succinate (Solu-Medrol) 125 mg IVPUSH DAILY [facility] Last Admin: 11/25/19 08:58 Dose: 125 mg Methylprednisolone Sodium Succinate (Solu-Medrol) 40 mg IVPUSH Q8H [facility] Last Admin: 11/26/19 00:12 Dose: Not Given Pantoprazole Sodium (Protonix Iv) 40 mg IV Q24H [facility] Last Admin: 11/25/19 02:37 Dose: 40 mg - Exam General: Reports: Alert, Oriented, Cooperative, No Acute Distress Lungs: Reports: Clear to Auscultation, Normal Respiratory Effort, Decreased Breath Sounds. Denies: Rales, Rhonchi, Rub, Wheezing Cardiovascular: Reports: Regular Rate, Regular Rhythm, No Murmurs GI/Abdominal Exam: Soft, Non-Tender, No Organomegaly, No Distention Extremities: Non-Tender, No Pedal Edema
[2019-11-27] MEDS ORDERED: predniSONE 20 MG Tab PO SCH (08:00)
[2019-11-30] MEDS ORDERED: Methotrexate 2.5 MG Tab PO SCH (09:00)
[2019-12-08] MEDS ORDERED: SIMPONI SUBCUT SCH (09:00)
== END 2019-11-26 11:48 | disposition home or self-care (01) | DRG 191 ==
LOC: JP.ED 23:13 → JP.MS 11-25 01:46
PROVIDERS: ADMIT Family Medicine; ATTEND Hospitalist
DX: J98.01 Acute bronchospasm (principal); J44.0 Chronic obstructive pulmonary disease with (acute) lower respiratory infection; R94.6 Abnormal results of thyroid function studies; J44.9 Chronic obstructive pulmonary disease, unspecified; Z68.41 Body mass index [BMI] 40.0-44.9, adult; J20.9 Acute bronchitis, unspecified; J44.1 Chronic obstructive pulmonary disease with (acute) exacerbation; F41.9 Anxiety disorder, unspecified; E10.649 Type 1 diabetes mellitus with hypoglycemia without coma; E03.9 Hypothyroidism, unspecified; E78.5 Hyperlipidemia, unspecified; G47.30 Sleep apnea, unspecified; M19.90 Unspecified osteoarthritis, unspecified site; F32.9 Major depressive disorder, single episode, unspecified; E66.9 Obesity, unspecified; G43.909 Migraine, unspecified, not intractable, without status migrainosus; Z79.890 Hormone replacement therapy; Z79.52 Long term (current) use of systemic steroids; F41.1 Generalized anxiety disorder; L40.50 Arthropathic psoriasis, unspecified; E83.42 Hypomagnesemia; E11.9 Type 2 diabetes mellitus without complications; D89.9 Disorder involving the immune mechanism, unspecified; I10 Essential (primary) hypertension; Z88.5 Allergy status to narcotic agent; Z88.4 Allergy status to anesthetic agent; Z79.51 Long term (current) use of inhaled steroids; Z79.4 Long term (current) use of insulin; Z79.899 Other long term (current) drug therapy; Z90.49 Acquired absence of other specified parts of digestive tract; Z90.721 Acquired absence of ovaries, unilateral; Z90.710 Acquired absence of both cervix and uterus; Z87.891 Personal history of nicotine dependence; Z98.890 Other specified postprocedural states
CPT/HCPCS: 36415 ×2; 71046 ×2; 80048; 81001; 83605; 83735; 84443; 85027; 87040; 94640; 96361; 96374; 99284 ×2; A9270; J1815; J2930; J7120; 80053; 82962; 87086; 94762; 97161-GP; C9113; J1644; J1956; J2920; J3475; J7030; J7620-GY

== ENCOUNTER 2020-10-12 08:29 | Inpatient (IN) | payer MEDICARE, OTHER ==
[~2020-10-12 08:29] MED LIST: Dexamethasone 4 MG/ML SDV ONE; Glycopyrrolate 0.2 MG/ML 5 ML MDV ONE; Lactated Ringers 1,000 ML ONE; Meropenem 500 MG SDV ONE; Neostigmine Methylsulfate 1 MG/ML 5 ML Syringe ONE; Ondansetron 4 MG/2 ML SDV ONE; Propofol 200 MG/20 ML SDV ONE; Rocuronium 50 MG/5 ML Vial ONE; Succinylcholine 200 MG/10 ML MDV ONE; cefOXitin 2 GM Vial ONE; fentaNYL 250 MCG/5 ML SDV ONE
[2020-10-12] MEDS ORDERED: Celecoxib 200 MG Cap PO ONE (08:30)
[2020-10-12] MEDS ORDERED: Scopolamine 1.5 MG Transdermal Patch TRDERM ONE (08:30)
[2020-10-12] MEDS ORDERED: Acetaminophen 500 MG Tab PO ONE (08:30)
[2020-10-12] MEDS ORDERED: Dextrose 5%-Lactated Ringers 1,000 ML IV SCH ×2 (09:00→16:45)
[2020-10-12] MEDS ORDERED: Etomidate 2 MG/ML 10 ML SDV ONE (09:11)
[2020-10-12 09:24] LABS: HEMOGLOBIN A1C 7.5 % (4.5-6.2)
[2020-10-12] MEDS ORDERED: Albuterol/Ipratropium 3.0-0.5 MG/3 ML Neb Soln NEB ONE (09:30)
[2020-10-12] MEDS ORDERED: Magnesium Sulfate 3.5 GM in Sodium Chloride 0.9% 100 ML IV SCH (10:15)
[2020-10-12] MEDS ORDERED: Ketamine 50 MG in Sodium Chloride 0.9% 49.5 ML IV SCH (10:15)
[2020-10-12] MEDS ORDERED: Magnesium Sulfate 5.6 GM in Sodium Chloride 0.9% 250 ML IV ONE (10:15)
[2020-10-12] MEDS ORDERED: Ketamine 500 MG/5 ML MDV IV SCH (10:15)
[2020-10-12] MEDS ORDERED: Bupivacaine 0.5% 50 ML MDV ONE (10:26)
[2020-10-12] MEDS ORDERED: Lidocaine 1% with EPINEPHrine 1:100,000 50 ML MDV ONE (10:27)
[2020-10-12] MEDS: cefOXitin 2 GM in Sodium Chloride 0.9% 50 ML IV ONE ×2 (11:38→16:44)
[2020-10-12] MEDS ORDERED: Meropenem 500 MG SDV ONE (12:30)
[2020-10-12] MEDS ORDERED: Rocuronium 50 MG/5 ML Vial ONE (12:38)
[2020-10-12] MEDS ORDERED: fentaNYL 250 MCG/5 ML SDV ONE (13:09)
[2020-10-12] MEDS ORDERED: Lactated Ringers 1,000 ML ONE (13:51)
[2020-10-12] MEDS ORDERED: Naloxone 0.4 MG/ML SDV IVPUSH PRN (14:24)
[2020-10-12] MEDS ORDERED: HYDROmorphone/Normal Saline 15 MG/30 ML PCA IV PRN (14:24)
[2020-10-12] MEDS ORDERED: Naloxone 0.4 MG/ML SDV IV PRN (15:00)
[2020-10-12] MEDS ORDERED: Glucagon,Human Recombinant 1 MG Vial IM PRN (15:39)
[2020-10-12] MEDS ORDERED: 50% Dextrose in Water 50 ML Syringe IVPUSH PRN (15:39)
[2020-10-12] MEDS ORDERED: Insulin Lispro 100 Unit/ML 3 ML KwikPen SUBCUT ONE (15:39)
[2020-10-12] MEDS ORDERED: Lactated Ringers 1,000 ML IV SCH (16:45)
[2020-10-12] MEDS ORDERED: Cyclobenzaprine 10 MG Tab PO PRN (16:57)
[2020-10-12] MEDS ORDERED: hydrOXYzine HCL 100 MG/2 ML SDV IM PRN (17:00)
[2020-10-12] MEDS ORDERED: Albuterol/Ipratropium 3.0-0.5 MG/3 ML Neb Soln INH PRN (17:00)
[2020-10-12] MEDS ORDERED: Labetalol 20 MG/4 ML Syringe IVPUSH PRN (17:00)
[2020-10-12] MEDS ORDERED: Acetaminophen 500 MG Tab PO PRN (17:00)
[2020-10-12] MEDS ORDERED: Metoclopramide 10 MG/2 ML SDV IVPUSH PRN (17:00)
[2020-10-12] MEDS ORDERED: Calcium Gluconate 10% 1 GM/10 ML SDV IVPUSH PRN (17:00)
[2020-10-12] MEDS ORDERED: Ondansetron 4 MG/2 ML SDV IVPUSH PRN (17:00)
[2020-10-12] MEDS ORDERED: diphenhydrAMINE 50 MG/ML SDV IVPUSH PRN (17:00)
[2020-10-12] MEDS ORDERED: Pantoprazole 40 MG Vial IVPUSH SCH (18:00)
[2020-10-12] MEDS ORDERED: MVI, Adult with Vitamin K 10 ML, Thiamine 200 MG, Zinc/Copper/Manganese/Selenium 1 ML i... IV SCH ×4 (18:00)
[2020-10-12] MEDS: cefOXitin 2 GM in Sodium Chloride 0.9% 50 ML IV SCH (18:00)
[2020-10-12] MEDS: Albuterol/Ipratropium 3.0-0.5 MG/3 ML Neb Soln INH SCH (20:10)
[2020-10-12] MEDS: Venlafaxine 75 MG Tab PO SCH (20:10)
[2020-10-12] MEDS ORDERED: Insulin Glargine,Human Rec. Analog 100 Units/ML 3 ML Pen SUBCUT SCH (21:00)
[2020-10-12] MEDS: Acetaminophen 500 MG Tab PO SCH (22:21)
[2020-10-12] MEDS: Heparin Sodium 5,000 Units/ML Vial SUBCUT SCH (22:21)
[2020-10-13] MEDS: cefOXitin 2 GM in Sodium Chloride 0.9% 50 ML IV SCH ×5 (00:08→23:32)
[2020-10-13] MEDS: Insulin Lispro 100 Unit/ML 3 ML KwikPen SUBCUT PRN ×2 (05:09→09:58)
[2020-10-13] MEDS: Acetaminophen 500 MG Tab PO SCH ×3 (05:10→21:30)
[2020-10-13] MEDS: Albuterol/Ipratropium 3.0-0.5 MG/3 ML Neb Soln INH SCH ×4 (07:26→21:30)
[2020-10-13] MEDS ORDERED: Ondansetron 4 MG Tab.DIS PO PRN (07:57)
[2020-10-13] MEDS ORDERED: Insulin Glargine,Human Rec. Analog 100 Units/ML 3 ML Pen SUBCUT ONE (09:00)
[2020-10-13] MEDS: Mometasone Furoate Powder 220 MCG/Puff 14 Dose Inhaler INH SCH (09:06)
[2020-10-13] MEDS: Tiotropium BR/Olodaterol HCL 4 GM Inhalation Spray 2.5mcg/1 dose; 10 doses INH SCH (09:12)
[2020-10-13] MEDS: Sodium Chloride 0.9% 1,000 ML IV SCH (09:32)
--- NOTE | 2020-10-13 09:33 | CR ---
CHEST: Portable 10/12/2020 at 3:40 PM CLINICAL HISTORY:Central line insertion COMPARISON:November 2019 FINDINGS: There is a left subclavian catheter placement. The catheter ascends the left jugular vein. There is less than optimal inspiration which exaggerates lung markings and vascularity. IMPRESSION: Left subclavian catheter ascends the left jugular vein Attending nurse was notified of the findings by phone at the time of this dictation at 9:25 AM
[2020-10-13] MEDS: Celecoxib 200 MG Cap PO SCH ×2 (09:35→21:30)
[2020-10-13] MEDS: Levothyroxine 100 MCG, Levothyroxine 25 MCG PO SCH ×2 (09:35)
[2020-10-13] MEDS: Metoprolol Succinate 50 MG Tab.ER PO SCH (09:36)
[2020-10-13] MEDS: Venlafaxine 75 MG Tab PO SCH ×2 (09:36→21:30)
[2020-10-13] MEDS: SCOPOLAMINE PATCH CHECK TOP SCH (09:36)
[2020-10-13] MEDS: Heparin Sodium 5,000 Units/ML Vial SUBCUT SCH ×2 (09:37→21:30)
--- NOTE | 2020-10-13 10:00 | PN ---
DATE OF SERVICE: 10/13/2020 SUBJECTIVE: Lv is postoperative day #1. She has had oral intake of 800, output 647. GABRIELLE drain put out 30 mL of a light pink drainage. She has been up, ambulating. Using her incentive spirometer. Sodium 132, potassium 5.6, chloride 99, creatinine 1.2, GFR is 47. Blood sugars have been 217, 316, and 382. Pain is controlled with the PIE CRIMPING MACHINE OPERATOR. REVIEW OF SYSTEMS: Remainder of review of systems negative for any pertinent positives and negatives. OBJECTIVE: GENERAL: Lv Blakely is a pleasant 55-year-old female. She is alert and orientated, color flushed. VITAL SIGNS: TPR 98.8, 76, 16, blood pressure 118/58. HEENT: Negative. NECK: Supple. HEART: Regular rate and rhythm. LUNGS: Clear. She has normal decreased breath sounds. ABDOMEN: Dressing dry and intact. Abdominal binder is on. EXTREMITIES: Without peripheral edema. ASSESSMENT: 1. Insertion of left subclavian triple-lumen catheter. 2. Exploratory laparotomy with lysis of extensive adhesions. 3. Esophagogastrectomy with Jennie-en-Y esophagojejunostomy. 4. Needle liver biopsy. 5. Removal of portion of intraperitoneal mesh. 6. Repair of recurrent incarcerated incisional hernia. 7. Partial excision of xiphoid. POSTOPERATIVE DIAGNOSES: 1. Limited peripheral vein access. 2. Status post fundoplication with 2 non usable enterostomy, gastric cardia. 3. Morbid obesity with non usable extensively scarred gastric cardia. 4. Marked hepatomegaly. 5. Recurrent incarcerated incisional hernia. 6. Potentially contaminated intraperitoneal mesh. 7. Distorted abnormal calcified top of xiphoid process. 8. Date of procedure: 10/12/2020. Surgeon: Crescencio Anderson MD. PLAN: 1. Discontinue [place] catheter. 2. Discontinue upper GI due to methotrexate usage with contraindication with contrast. 3. Step 1 gastric bypass diet. 4. Discontinue D5 LR and lactated Ringer IV solution. 5. Start normal saline IV 125 mL/hour. 6. 10 units of Lantus now. 7. Lantus 25 units at bedtime. 8. Check CBC, CMP, mag, phos in a.m. 9. Communication order: 3 med cups per hour, 1 every 20 minutes. 10.We will evaluate p.r.n. or in a.m. Noelle Norby, PA-C /[id number]
[2020-10-13] MEDS: MVI, Adult with Vitamin K 10 ML, Thiamine 200 MG, Zinc/Copper/Manganese/Selenium 1 ML i... IV SCH ×4 (15:58)
[2020-10-13] MEDS: Pantoprazole 40 MG Delayed-Release Granules 1 Packet PO SCH (17:22)
[2020-10-13] MEDS ORDERED: Insulin Glargine,Human Rec. Analog 100 Units/ML 3 ML Pen SUBCUT SCH (21:00)
[2020-10-14] MEDS: cefOXitin 2 GM in Sodium Chloride 0.9% 50 ML IV SCH ×2 (05:20→11:57)
[2020-10-14] MEDS: Acetaminophen 500 MG Tab PO SCH (05:49)
[2020-10-14] MEDS: Mometasone Furoate Powder 220 MCG/Puff 14 Dose Inhaler INH SCH (07:04)
[2020-10-14] MEDS: Albuterol/Ipratropium 3.0-0.5 MG/3 ML Neb Soln INH SCH ×5 (07:04→20:36)
[2020-10-14] MEDS: Levothyroxine 100 MCG, Levothyroxine 25 MCG PO SCH ×2 (07:28)
[2020-10-14] MEDS: Tiotropium BR/Olodaterol HCL 4 GM Inhalation Spray 2.5mcg/1 dose; 10 doses INH SCH (08:24)
[2020-10-14] MEDS: Sodium Chloride 0.9% 1,000 ML IV SCH (08:34)
[2020-10-14] MEDS: metFORMIN 500 MG Tab PO SCH ×2 (08:55→16:28)
[2020-10-14] MEDS: Metoprolol Succinate 50 MG Tab.ER PO SCH (08:57)
[2020-10-14] MEDS: Venlafaxine 75 MG Tab PO SCH ×2 (08:59→20:33)
[2020-10-14] MEDS ORDERED: Cyanocobalamin (Vitamin B12) 1,000 MCG/ML SDV IM ONE (09:00)
[2020-10-14] MEDS: Celecoxib 200 MG Cap PO SCH ×2 (09:01→20:33)
[2020-10-14] MEDS: Heparin Sodium 5,000 Units/ML Vial SUBCUT SCH ×2 (09:01→21:59)
[2020-10-14] MEDS: Acetaminophen/HYDROcodone 108-2.5 MG/5 ML Soln 15 ML UD Cup PO PRN ×2 (10:56→18:03)
--- NOTE | 2020-10-14 11:10 | PN ---
DATE OF SERVICE: 10/14/2020 SUBJECTIVE: Lv Blakely reports pain is controlled. She is using the MOLDER MACHINE infrequently. Oral intake 1100, output 1350. GABRIELLE drain put out 35 mL of a light pink drainage. Blood sugars have been 301, 199, 176, and 183. Creatinine is 1, GFR 58. REVIEW OF SYSTEMS: Remainder of review of systems negative for any pertinent positives and negatives. OBJECTIVE: GENERAL: Lv Blakely is a pleasant 55-year-old female. She is alert and orientated. VITAL SIGNS: TPR 96.9, 91, 20, blood pressure 154/84. HEENT: Negative. NECK: Supple. HEART: Regular rate and rhythm. LUNGS: Clear. ABDOMEN: Aquacel dressing intact. GABRIELLE drain intact as above. EXTREMITIES: Without peripheral edema. ASSESSMENT: 1. Insertion of left subclavian triple-lumen catheter. 2. Exploratory laparotomy with lysis of extensive adhesions. 3. Esophagogastrectomy with Jennie-en-Y esophagojejunostomy. 4. Needle liver biopsy. 5. Removal of portion of intraperitoneal mesh. 6. Repair of recurrent incarcerated incisional hernia. 7. Partial excision of the xiphoid process. POSTOPERATIVE DIAGNOSES: 1. Limited peripheral vein access. 2. Status post fundoplication with 2 nonusable enterostomy gastric cardia. 3. Morbid obesity with nonusable extensively scarred gastric cardia. 4. Marked hepatomegaly. 5. Recurrent incarcerated incisional hernia. 6. Potentially contaminated intraperitoneal mesh. 7. Distorted abnormal calcified top of the xiphoid process. 8. Date of procedure: 10/12/2020. Surgeon: Crescencio Anderson MD. PLAN: 1. Hydrocodone/acetaminophen elixir 108/2.5 mg/5 mL 15 mL every 4 hours p.r.n. pain. 2. Step 2 gastric bypass diet with no cereal. 3. Metformin 500 mg b.i.d. with meals, to crush tablet. 4. Discontinue MOLDER MACHINE, cardiac monitoring, and continuous pulse ox. 5. Communication order that all medications should be crushed or capsules to be opened. 6. Communication order: 3 med cups, 1 q.20 minutes or 3 per hour to assure adequate oral intake. 7. We will evaluate p.r.n. an or in a.m. 8. Plan discharge in a.m. Noelle Colvin PA-C /[id number]
[2020-10-14] MEDS: SCOPOLAMINE PATCH CHECK TOP SCH (11:57)
[2020-10-14] MEDS: MVI, Adult with Vitamin K 10 ML, Thiamine 200 MG, Zinc/Copper/Manganese/Selenium 1 ML i... IV SCH ×4 (16:27)
[2020-10-14] MEDS: Pantoprazole 40 MG Delayed-Release Granules 1 Packet PO SCH (16:27)
[2020-10-15] MEDS: Sodium Chloride 0.9% 1,000 ML IV SCH (00:33)
[2020-10-15] MEDS: Acetaminophen/HYDROcodone 108-2.5 MG/5 ML Soln 15 ML UD Cup PO PRN (02:28)
[2020-10-15] MEDS: Mometasone Furoate Powder 220 MCG/Puff 14 Dose Inhaler INH SCH (07:20)
[2020-10-15] MEDS: Albuterol/Ipratropium 3.0-0.5 MG/3 ML Neb Soln INH SCH (07:20)
[2020-10-15 07:21] VITALS: PULSE 82
[2020-10-15 07:38] VITALS: BP 112/51
--- NOTE | 2020-10-15 09:15 | DISCH ---
ADMISSION DIAGNOSES: 1. Morbid obesity, BMI 41.8. 2. Diabetes type 2. 3. Migraine headaches. 4. General anxiety disorder. 5. Chronic obstructive pulmonary disease. 6. Asthma. 7. Cirrhotic arthritis. 8. Hyperlipidemia. 9. Hypothyroidism. 10.Hypertension. DISCHARGE DIAGNOSES: 1. Insertion of left subclavian triple-lumen catheter. 2. Exploratory laparotomy with lysis of extensive adhesions. 3. Esophagogastrectomy with Jennie-en-Y esophagojejunostomy. 4. Needle liver biopsy. 5. Removal of portion of intraperitoneal mesh. 6. Repair of recurrent incarcerated incisional hernia. 7. Partial excision of the xiphoid process. POSTOPERATIVE DIAGNOSES: 1. Limited peripheral vein access. 2. Status post fundoplication with 2 nonusable enterostomy gastric cardia. 3. Morbid obesity with nonusable extensively scarred gastric cardia. 4. Marked hepatomegaly. 5. Recurrent incarcerated incisional hernia. 6. Potentially contaminated intraperitoneal mesh. 7. Distorted abnormal calcified top of the xiphoid process. 8. Date of procedure: 10/12/2020. Surgeon: Crescencio Anderson MD. HISTORY: Lv Blakely is a pleasant 55-year-old female with morbid obesity and increasing comorbidities. After preoperative evaluation and discussion of possible risks and possible complications, she wished to proceed with surgical procedure. HOSPITAL COURSE: Lv had her surgery on 10/12/2020. She had no operative complications. On postoperative day #1, she was continued with a step 1 gastric bypass diet. She had COURSE INSTRUCTOR for pain. On postoperative day #2, she was started on step 2 gastric bypass diet with no cereal and changed to oral pain medication. Blood sugars were monitored and she was given Lantus on first postop day. Second postop day, was changed to metformin, and her blood sugars prior to discharge were 145 in the morning. Lv was able to be discharged on 10/15/2020. Pain was well managed. Activity was good. Blood sugars were decreasing. Afebrile. Oral intake 2300. Urine output was 1550. She received adequate nutritional education and she was able to be discharged to home with no complications. PHYSICAL EXAMINATION: GENERAL: Lv Shelby is a pleasant 55-year-old female. She is alert and orientated. VITAL SIGNS: TPR is 97.8, 75, 18, blood pressure 112/51. Height is 5 feet 6 inches, weight is 259 pounds, BMI is 41.8. HEENT: Negative. NECK: Supple. HEART: Regular rate and rhythm. LUNGS: Clear. ABDOMEN: Aquacel dressings on. Abdominal binder is on. EXTREMITIES: Without peripheral edema. DISPOSITION: Discharged to home. CONDITION: Stable and improving. FOLLOWUP APPOINTMENTS: With Noelle Colvin PA-C, at [facility] on 10/25/2020 at 10:15 a.m. HOME MEDICATIONS: 1. Acetaminophen-hydrocodone 108-2.5 mg/5 mL and she is getting 15 mL q.4 hours p.r.n. pain for 7 days. 2. Tylenol Extra Strength 500 mg q.8 hours p.r.n. pain. 3. Zofran ODT 4 mg every 4 hours p.r.n. nausea, #30. 4. Metformin 500 mg oral twice daily with meals, #60 with 11 refills. 5. Metoprolol-XL 50 mg oral daily, #30, 11 refills. 6. Venlafaxine 75 mg oral b.i.d. 7. She is to resume her home medication of: a. ProAir 2 puffs every 4 hours. b. Proventil 3 mL nebulized every 4 hours. c. DuoNebs 3 mL nebulized every 6 hours p.r.n. d. Pulmicort 2 mL inhalation b.i.d. e. Clonazepam 0.5 mg oral 3 times a day. f. Lasix 40 mg oral daily. g. Simponi 50 mg subcutaneous as directed. h. Methotrexate 8 tablets oral as directed. i. Flexeril 10 mg at bedtime. j. Compazine 5 mg oral every 8 hours p.r.n. nausea. k. Imitrex 100 mg as directed p.r.n. migraine headache. l. Anoro Ellipta 1 inhalation daily. 8. Discontinue taking vitamins and supplements. 9. Discontinue taking insulin Lantus. 10.Bupropion XL to change to 150 b.i.d. 11.She is to split or crush all medications and may open up capsules. DIET: Step 2 gastric bypass diet with no cereal until 11/12/2020. Drink 8 to 10 glasses of water a day. ACTIVITY: No lifting over 10 pounds for 6 weeks. OTHER ACTIVITY: Walk 6 times daily inside your home. Driving: Do not drive for 1 week or while on narcotic pain medication. Shower/bathing: May shower. DISCHARGE INSTRUCTIONS: Notify provider if any fever, increased pain, swelling, redness, drainage, nausea, vomiting. Keep site clean and dry. Wound incision care: Take off Aquacel dressing on 10/18/2020. Wear abdominal binder for 6 weeks and then as tolerated. Use incentive spirometer 10 times every hour while awake and check blood sugars 4 times a day and call on Sunday with results. /[id number]
--- NOTE | 2020-10-26 10:13 | OR ---
DATE OF PROCEDURE: 10/12/2020 SURGEON: Crescencio Anderson MD PREOPERATIVE DIAGNOSES: 1. Limited peripheral venous access. 2. Morbid obesity, status post previous Maria G fundoplication. POSTOPERATIVE DIAGNOSES: 1. Limited peripheral venous access. 2. Morbid obesity, status post previous Maria G fundoplication with a non usable extensively scarred gastric cardia. 3. Marked hepatomegaly. 4. Recurrent incarcerated incisional hernia. 5. Potentially contaminated intraperitoneal mesh. 6. Distorted abnormally configured tip of xiphoid bone. PROCEDURES: 1. Insertion of left subclavian vein triple-lumen catheter (80998). 2. Exploratory laparotomy with lysis of extensive adhesions and: a. Esophagogastrectomy with Jennie-en-Y esophagojejunostomy (24216). b. Javid-Cut needle liver biopsy (41868). c. Removal of portion of potentially contaminated intraperitoneal mesh (00935). d. Repair of recurrent incarcerated incisional hernia (98440). e. Partial excision of tip of xiphoid bone (77815). ANESTHESIA: General. AUTO GLASS TECHNICIAN: Noelle Colvin PA-C INDICATIONS FOR PROCEDURE: This is a 55-year-old with history of quite extensive previous abdominal surgeries, presenting with ongoing morbid obesity and increasingly significant comorbidities. She is status post previous Maria G fundoplication among other operations. Plan is to proceed with an exploratory laparotomy and Jennie-en-Y gastric bypass. She is aware of possibility of needing to do a more proximal anastomosis depending on the quality of the stomach at the level of the fundoplication. Otherwise, she has some intraperitoneal mesh. She is aware it may need to be removed as well depending on its appearance. Potential risks including bleeding, infection, leaks from various GI tract closures, problems with bowel obstruction over time, as well as possibility of cardiopulmonary, septic, or hemorrhagic complications leading to were discussed, and the patient wishes to proceed. She has quite limited peripheral venous access, so a central line will also be placed. Potential risks of that including bleeding, infection, pneumohemothorax, or vascular injury were likewise gone over and the patient wishes to proceed. DETAILS OF PROCEDURE: The patient was taken to the operating room. After general endotracheal anesthesia was induced, a Barahona catheter was inserted. The upper chest and neck areas were initially prepped and draped and the left subclavian vein cannulated, guidewire passed, and over the guidewire, a triple-lumen catheter was inserted. Good in and outflow was noted through the catheter. Ports were flushed with heparinized saline, catheter was sutured to skin with some 3-0 silk stitch. Subsequent x-ray showed no complications. Catheter then passed up into the jugular vein, but this would be relatively short used catheter and repositioning of this was felt not to be necessary. The abdomen was then prepped and draped. An upper midline incision was then made from the xiphoid down to the umbilicus. In the center of this incision was some contracted Du Bois-Saul type mesh with recurrent hernia located on this lower aspect. Upon entering the peritoneal cavity, some adhesions underlying the mesh were taken down with cautery dissection along with surgical jeromy omentum from those surfaces. This type of mesh is very prone to infection and during the opening of GI tract, the mesh was removed at this point. The tip of the patient's xiphoid was noted to be distorted and angled anteriorly making this potentially somewhat problematic on subsequent healing of the midline incision. Given this, the tip of the xiphoid was excised using sharp dissection and sent as a separate specimen. The liver was noted to be quite enlarged consistent with the patient's obesity status and fatty infiltrated. Javid-Cut needle biopsies were obtained from left lobe of the liver. Minimal bleeding from the biopsy sites was controlled with electrocautery. At this point, the area of the fundoplication was dissected out. As one dissected that area around the esophagogastric junction, it became evident that the gastric cardia at this point was not felt safe to use for anastomosis as there was considerable distortion, scarring at the skin after takedown of fundoplication. Given this, a gastrotomy was placed and the anvil of a 28 mm EEA stapler passed into the lumen of the stomach, and from there manipulated up into the distal most esophagus. The esophagus just above the esophagogastric junction was then divided with 2 firings of the RAYSA black loads. A portion of the stomach below this was then resected as it appeared to be somewhat ischemic and deserosalized. The esophagogastrectomy specimen was delivered from the field. The Jennie limb was then completed. The ligament of Treitz was identified and small bowel traced out 125 cm distal to that point, where it was divided with A RAYSA stapler. Small bowel was then traced out an additional 175 cm where a [id number] enteroenterostomy was accomplished with an internal firing of the Endo-RAYSA 60 mm stapler. Common opening was closed transversely with the same stapler and angles anastomosed and mesenteric defect approximated with some 3-0 Vicryl stitch along with fibrin sealant. We elected to bring the Jennie limb through a retrogastric retrocolic approach at this point. The avascular portion of the transverse mesocolon was then incised initially with electrocautery and then bluntly enlarged to the point where it easily accepted the Jennie limb up to the area of the divided distal esophagus. The main body of the EEA stapler was then passed into the lumen of the small bowel after it was opened, brought up to the anvil and fired thus creating the esophagojejunostomy. The small bowel was closed off with a vascular staple line. Esophagojejunostomy was then reinforced with some 3-0 Vicryl stitch along with fibrin sealant. Of note, the anvil donuts were inspected and found to be intact, and proximally was a "fish belly white" appearance consistent with this being the esophageal mucosa, i.e. confirming that we are dealing with the esophagojejunostomy as opposed to gastrojejunostomy. With no further problems noted, the abdomen was irrigated with antibiotic-containing saline solution. A single Rush-Enriquez drain was taken through the stab wound in the left subcostal area and positioned adjacent to the esophagojejunostomy, from there up into the splenic fossa. The midline fascia was then approximated with #2 Vicryl stitch. This included repair of the incarcerated recurrent incisional hernia in the lower aspect of the midline incision, and the skin and subcutaneous tissue were then closed with 2 layers of 3-0 Vicryl stitch deep and then jeromy for the skin. Bilateral transversus abdominis plane blocks had also been placed and the patient was taken to the recovery room in satisfactory condition. Physician human services assistant, Noelle Colvin, played an essential role in assisting in this case helping to position the patient, retract structures as needed, as well as suturing and cutting sutures when indicated. Her presence improved patient safety and decreased operative time. Crescencio Anderson MD /[id number]
== END 2020-10-15 08:30 | disposition home or self-care (01) | DRG 619 ==
LOC: JP.SDS 08:29 → JP.SDSSCHI 08:29 → EDSTATUS 12:25 → JP.MS 15:30
PROVIDERS: ADMIT Surgery; ATTEND Surgery
PROC: 0DB60ZZ Excision of Stomach, Open Approach (ICD-10-PCS; principal; 2020-10-12)
PROC: 0DB40ZZ Excision of Esophagogastric Junction, Open Approach (ICD-10-PCS; 2020-10-12)
PROC: 0D150ZA Bypass Esophagus to Jejunum, Open Approach (ICD-10-PCS; 2020-10-12)
PROC: 0WQF0ZZ Repair Abdominal Wall, Open Approach (ICD-10-PCS; 2020-10-12)
PROC: 0PB Upper Bones, Excision (ICD-10-PCS; 2020-10-12)
PROC: 0WCG0ZZ Extirpation of Matter from Peritoneal Cavity, Open Approach (ICD-10-PCS; 2020-10-12)
PROC: 0FB03ZX Excision of Liver, Percutaneous Approach, Diagnostic (ICD-10-PCS; 2020-10-12)
PROC: 02HV33Z Insertion of Infusion Device into Superior Vena Cava, Percutaneous Approach (ICD-10-PCS; 2020-10-12)
DX: E66.01 Morbid (severe) obesity due to excess calories (principal); E11.00 Type 2 diabetes mellitus with hyperosmolarity without nonketotic hyperglycemic-hyperosmolar coma (NKHHC); K43.0 Incisional hernia with obstruction, without gangrene; Z68.41 Body mass index [BMI] 40.0-44.9, adult; E11.9 Type 2 diabetes mellitus without complications; Z79.4 Long term (current) use of insulin; G43.909 Migraine, unspecified, not intractable, without status migrainosus; F41.1 Generalized anxiety disorder; J44.9 Chronic obstructive pulmonary disease, unspecified; M13.80 Other specified arthritis, unspecified site; E78.5 Hyperlipidemia, unspecified; E03.9 Hypothyroidism, unspecified; I10 Essential (primary) hypertension; R16.0 Hepatomegaly, not elsewhere classified; K21.9 Gastro-esophageal reflux disease without esophagitis; Z88.0 Allergy status to penicillin; Z88.8 Allergy status to other drugs, medicaments and biological substances
CPT/HCPCS: 36415; 71045; 71045-26; 80053; 82962; 83036; 83735; 83880; 84100; 85025; 85027; 86850; 86900; 86901; 88300; 88302; 88304; 88307; 88311; 88313; 93005; 93010; 94640; 94762; A9270-GY; C9113; J0171; J0330; J0694; J1100; J1170; J1642; J1644; J1815; J1815-GY; J2020; J2185; J2405; J2704; J2710; J2795; J3010; J3411; J3420; J3475; J3490; J7030; J7050; J7120; J7121; J7620-GY

== ENCOUNTER 2020-11-09 16:54 | Emergency (ER) | payer MEDICARE, OTHER ==
[2020-11-09 17:18] VITALS: BP 149/89; PULSE 107
--- NOTE | 2020-11-09 18:33 | EDM.PDOC ---
ED HPI GENERAL MEDICAL PROBLEM - General Chief Complaint: Respiratory Problem Stated Complaint: POSSIBLE COVID Time Seen by Provider: 11/09/20 17:30 Source of Information: Reports: Patient History Limitations: Reports: No Limitations - History of Present Illness INITIAL COMMENTS - FREE TEXT/NARRATIVE: 55-year-old female has developed a sore throat, shortness of breath and a cough over the past 48 hours. She was checked at the clinic yesterday for a Covid test but not seen by a physician, results are still pending. Today she developed some intermittent back discomfort and lower abdominal discomfort with some dysuria so called the clinic and was told to come to the emergency room. She is afebrile, does have some shortness of breath with activity but is stable. Some nausea but no vomiting, no diarrhea, she had gastric bypass 1 month ago. Onset: Gradual Duration: Day(s): (2 days) Associated Symptoms: Reports: Cough, Shortness of Breath, Other (Sore throat). Denies: Fever/Chills - Related Data Allergies Allergy/AdvReac Type Severity Reaction Status Date / Time propofol Allergy Severe Cardiac Verified 11/09/20 17:06 Arrest adhesive tape Allergy Rash Verified 11/09/20 17:06 Penicillins Allergy Mouth Sores Verified 11/09/20 17:06 codeine AdvReac Nausea Verified 11/09/20 17:06 Home Meds: Home Meds Golimumab [Simponi] 50 mg SUBCUT ASDIRECTED 12/22/17 [History] Methotrexate 8 tab PO ASDIRECTED 12/22/17 [History] ClonazePAM [KlonoPIN] 0.5 - 1 mg PO TID PRN 09/13/18 [History] Albuterol Sulfate [Proair Hfa] 2 puff IH Q4H PRN 10/07/20 [History] Albuterol [Proventil Neb Soln] 3 ml NEB Q4H PRN 10/07/20 [History] Albuterol/Ipratropium [DuoNeb 3.0-0.5 MG/3 ML] 3 ml NEB Q6H PRN 10/07/20 [History] Cyclobenzaprine [Flexeril] 10 mg PO BEDTIME 10/07/20 [History] Furosemide [Lasix] 40 mg PO DAILY PRN 10/07/20 [History] Prochlorperazine [Compazine] 5 mg PO Q8H PRN 10/07/20 [History] SUMAtriptan succinate [Imitrex] 100 mg PO ASDIRECTED 10/07/20 [History] Umeclidinium Brm/Vilanterol Tr [Anoro Ellipta 62.5-25 MCG] 1 each IH DAILY 10/07/20 [History] Cyanocobalamin (Vitamin B-12) [Vitamin B-12] 1,000 mcg SL DAILY 10/12/20 [History] Acetaminophen [Tylenol Extra Strength] 500 mg PO Q8H PRN tablet 10/15/20 [Rx] Acetaminophen/HYDROcodone [Acetaminophen/HYDROcodone 108-2.5 MG/5 ML] 15 ml PO Q4H PRN 7 Days solution 10/15/20 [Rx] Ondansetron [Zofran ODT] 4 mg PO Q4H PRN #30 tab.dis 10/15/20 [Rx] Venlafaxine HCl [Venlafaxine ER] 75 mg PO BID #0 10/15/20 [Rx] buPROPion HCL [Wellbutrin Xl] 150 mg PO BID #60 tab.er.24h 10/15/20 [Rx] hydroCHLOROthiazide [Hydrochlorothiazide] 12.5 mg PO ACBREAKFAST #30 tablet 10/15/20 [Rx] Insulin Glarg,Human.Rec.Analog [Lantus Solostar] 7 unit SUBCUT DAILY 11/04/20 [History] Past Medical History HEENT History: Reports: Other (See Below) Other HEENT History: Vascular loop desease. Cardiovascular History: Reports: Hypertension Other Cardiovascular History: hx of low potassium Respiratory History: Reports: Asthma, COPD, Sleep Apnea Gastrointestinal History: Reports: Diverticulosis, Pancreatitis, Other (See Below) Other Gastrointestinal History: perforated colon COLLISION REPAIR TECHNICIAN History: Reports: Endometriosis, Musculoskeletal History: Reports: Arthritis Other Musculoskeletal History: shoulder surgery scheduled for 03-16-15 Neurological History: Reports: Vertigo Psychiatric History: Reports: Anxiety, Depression, PTSD Endocrine/Metabolic History: Reports: Diabetes, Type I, Hypothyroidism, Obesity/BMI 30+ Other Endocrine/Metabolic History: glucose impaired - prediabetic Immunologic History: Reports: Immunosuppression, Other (See Below) Other Immunologic History: immunosuppression d/t medications Dermatologic History: Reports: Psoriasis - Infectious Disease History Infectious Disease History: Reports: Chicken Pox, Shingles - Past Surgical History Head Surgeries/Procedures: Reports: None HEENT Surgical History: Reports: None GI Surgical History: Reports: Appendectomy, Bariatric Procedure, Cholecystectomy, Colonoscopy, Hernia, Abdominal, Maria G Fundoplication Other GI Surgeries/Procedures: colon surgery for perforated colon Female Surgical History: Reports: Section, Hysterectomy, Oophorectomy Other Female Surgeries/Procedures: prolapsed bladder Endocrine Surgical History: Reports: None Neurological Surgical History: Reports: None Musculoskeletal Surgical History: Reports: Carpal Tunnel, Shoulder Surgery, Other (See Below) Other Musculoskeletal Surgeries/Procedures:: left thumb & right middle trigger release, carpal tunnel right, right tennis elbow repair Dermatological Surgical History: Reports: None Social & Family History - Family History Family Medical History: No Pertinent Family History Cardiac: Reports: High Cholesterol, Hypertension, [place], Other (See Below) Other Cardiac Family History: small vessel disease Respiratory: Reports: COPD GI: Reports: Chronic Constipation OBGYN: Reports: Endometriosis, Fibroids Neurological: Reports: Alzheimers Disease Psychiatric: Reports: Anxiety, Depression Oncologic: Reports: Metastatic - Tobacco Use Tobacco Use Status *Q: Current Every Day Tobacco User Years of Tobacco use: 35 Packs/Tins Daily: 0.1 - Caffeine Use Caffeine Use: Reports: None - Recreational Drug Use Recreational Drug Use: No ED ROS GENERAL - Review of Systems Review Of Systems: See Below Constitutional: Reports: Malaise. Denies: Fever, Chills HEENT: Reports: Rhinitis, Throat Pain Respiratory: Reports: Shortness of Breath, Wheezing, Cough Cardiovascular: Denies: Chest Pain GI/Abdominal: Reports: Abdominal Pain (Vague discomfort on the right abdomen extending around the right flank) Skin: Reports: Other (Diffuse dry scaly rash typical of psoriasis) Neurological: Denies: Dizziness, Headache Psychiatric: Reports: Anxiety (Very anxious about the possibility of having COVID-19) ED EXAM, GENERAL - Physical Exam Exam: See Below Exam Limited By: No Limitations General Appearance: Alert, No Apparent Distress Eye Exam: Bilateral Eye: Normal Inspection Throat/Mouth: Normal Inspection Head: Atraumatic Respiratory/Chest: No Respiratory Distress, Wheezing (Diffuse expiratory wheezing but underlying good air movement) Cardiovascular: Regular Rate, Rhythm GI/Abdominal: Soft. No: Tender Back Exam: No: CVA Tenderness (R), CVA Tenderness (L) Neurological: Alert, Oriented Psychiatric: Normal Affect, Normal Mood Skin Exam: Warm, Dry, Other (Diffuse asymmetric dry erythematous scaly patches of rash typical of psoriasis) Course - Vital Signs Last Recorded V/S: Last Vital Signs Temp 98.4 F 11/09/20 17:17 Pulse 107 H 11/09/20 17:17 Resp 18 11/09/20 17:17 BP 149/89 H 11/09/20 17:17 Pulse Ox 94 L 11/09/20 17:17 - Orders/Labs/Meds Labs: Laboratory Tests 11/09/20 11/09/20 Range/Units 17:30 17:45 Urine Color [place] A (YELLOW) Urine Appearance Cloudy A (CLEAR) Urine pH 5.0 (5.0-8.0) Ur Specific [place] 1.015 (1.008-1.030) Urine Protein >=300 H (NEGATIVE) mg/dL Urine Glucose (UA) 100 H (NEGATIVE) mg/dL Urine Ketones 15 H (NEGATIVE) mg/dL Urine Occult Blood Moderate H (NEGATIVE) Urine Nitrite Positive H (NEGATIVE) Urine Bilirubin Moderate H (NEGATIVE) Urine Urobilinogen >=8.0 H (0.2-1.0) EU/dL Ur Leukocyte Esterase Large H (NEGATIVE) Urine RBC 20-30 H (0-5) Urine WBC 40-50 H (0-5) Ur Epithelial Cells Moderate Amorphous Sediment Not seen Urine Bacteria Moderate Urine Mucus Few Urine Other Influenza Type A RNA Negative (NEGATIVE) RSV RNA (INAAT) Negative (NEGATIVE) Influenza Type B RNA Negative (NEGATIVE) SARS-CoV-2 RNA (HELEN) Negative (NEGATIVE) Meds: Medications Discontinued Medications Generic Name Dose Route Start Last Admin Trade Name Freq PRN Reason Stop Dose Admin Albuterol/Ipratropium 3 ml 11/09/20 18:59 11/09/20 19:08 Duoneb 3.0-0.5 Mg/3 Ml NEB 11/09/20 19:00 3 ml ONETIME ONE Administration - Re-Assessments/Exams Free Text/Narrative Re-Assessment/Exam: 11/09/20 19:00 4 viral study is negative, 2 view chest x-ray is normal. Urine is strongly positive with nitrite positive urine "many bacteria and RBCs and white blood cells. A DuoNeb was given and she will be started on 60 mg of prednisone daily for 5 days and a 10-day course of Levaquin. Urine culture started and she will return if worsening despite treatment. Departure - Departure Time of Disposition: 19:21 Disposition: Home, Self-Care 01 Clinical Impression: Bronchitis UTI (urinary tract infection) Qualifiers: Urinary tract infection type: acute cystitis Hematuria presence: with hematuria Qualified Code(s): N30.01 - Acute cystitis with hematuria - Discharge Information Instructions: Shortness of Breath, Adult, [id number], Urinary Tract Infection, Adult, [id number] Referrals: PCP,None [Ordering Only Provider] - Forms: ED Department Discharge Care Plan Goals: Take antibiotic 1 pill daily until gone, take 6 pills of prednisone with food once daily with your first meal of the day. Take prednisone for 5 consecutive days. Return anytime if worsening despite treatment or consider rechecking in 2 to 3 days if not improving satisfactorily. Sepsis Event Note (ED) - Evaluation Sepsis Screening Result: No Definite Risk
[2020-11-09 18:51] LABS: CORONAVIRUS COVID-19 NAA NEGATIVE (NEGATIVE)
[2020-11-09] MEDS ORDERED: Albuterol/Ipratropium 3.0-0.5 MG/3 ML Neb Soln NEB ONE (18:59)
--- NOTE | 2020-11-11 08:59 | CR ---
CHEST: 2 view CLINICAL HISTORY:SOB COMPARISON:10/12/2020 FINDINGS: The heart size, pulmonary vascularity and hilar structures are normal. No infiltrate effusion or pneumothorax is seen. IMPRESSION: No acute cardiopulmonary process
== END 2020-11-09 19:22 | disposition home or self-care (01) ==
LOC: JP.ED 16:54
DX: N30.01 Acute cystitis with hematuria (principal); J40 Bronchitis, not specified as acute or chronic; I10 Essential (primary) hypertension; E10.9 Type 1 diabetes mellitus without complications; E66.9 Obesity, unspecified; Z68.39 Body mass index [BMI] 39.0-39.9, adult; Z88.8 Allergy status to other drugs, medicaments and biological substances; Z91.048 Other nonmedicinal substance allergy status; Z88.0 Allergy status to penicillin; Z88.5 Allergy status to narcotic agent; Z20.822 Contact with and (suspected) exposure to COVID-19; Z72.0 Tobacco use; Z88.4 Allergy status to anesthetic agent
CPT/HCPCS: 0241U; 71046; 81001; 87086; 87088; 87186; 94640; 99284; 99285; J7620-GY

== ENCOUNTER 2020-11-12 08:08 | Day surgery (SDC) | payer MEDICARE, OTHER ==
[2020-11-12] MEDS ORDERED: Albuterol/Ipratropium 3.0-0.5 MG/3 ML Neb Soln NEB ONE (08:54)
[2020-11-12] MEDS ORDERED: Glycopyrrolate 0.2 MG/ML 2 ML SDV IVPUSH ONE (09:00)
[2020-11-12] MEDS ORDERED: Lactated Ringers 1,000 ML IV ONE (09:00)
[2020-11-12] MEDS ORDERED: Cyanocobalamin (Vitamin B12) 1,000 MCG/ML SDV IM ONE (09:00)
[2020-11-12] MEDS ORDERED: fentaNYL 100 MCG/2 ML SDV ONE (09:31)
[2020-11-12] MEDS ORDERED: Midazolam 1 MG/ML 2 ML SDV ONE (09:31)
[2020-11-12] MEDS ORDERED: Etomidate 2 MG/ML 10 ML SDV ONE ×2 (09:31→10:13)
[2020-11-12] MEDS ORDERED: MVI, Adult with Vitamin K 10 ML, Zinc/Copper/Manganese/Selenium 1 ML, Thiamine 200 MG i... IV ONE ×4 (10:00)
[2020-11-12] MEDS ORDERED: Dexamethasone 4 MG/ML SDV ONE (10:30)
[2020-11-12 11:48] VITALS: BP 153/75; PULSE 80
--- NOTE | 2020-11-15 08:28 | OR ---
DATE OF PROCEDURE: 11/12/2020 SURGEON: Crescencio Anderson MD PREOPERATIVE DIAGNOSIS: Probable stricturing at esophagojejunostomy. POSTOPERATIVE DIAGNOSIS: Mild stricturing at esophagojejunostomy. OPERATIVE PROCEDURE: Upper gastrointestinal endoscopy with dilation of esophagojejunostomy (84366). ANESTHESIA: IV sedation. INDICATIONS FOR PROCEDURE: A 55-year-old female, presenting with some symptoms of stricturing at esophagojejunostomy having been status post esophagogastrectomy with Jennie-en- Y reconstruction on 10/12/2020. Plan is to proceed with upper GI endoscopy with dilation as indicated. Potential risks including bleeding and perforation were discussed, and the patient wishes to proceed. DETAILS OF PROCEDURE: The patient was taken to the operating room and placed in a left lateral decubitus position. IV sedation was administered after which the upper GI endoscope was passed orally through the length of the esophagus. At the level esophagojejunostomy, the scope could be passed through that anastomosis and was noted to be mildly narrowed. There was minimal inflammation present. Bard gastrointestinal catheter was centered across the anastomosis and inflated to 45-Romanian size. It was held in position for 1 minute after which balloon catheter was deflated and withdrawn. Scope was easily passed through the anastomosis, which was visibly somewhat larger, and the procedure was then concluded. The patient was taken to the recovery room in satisfactory condition. Crescencio Anderson MD /[id number]
== END 2020-11-12 12:10 | disposition home or self-care (01) ==
LOC: JP.SDS 08:08
PROVIDERS: ATTEND Surgery
DX: K91.89 Other postprocedural complications and disorders of digestive system (principal); K22.2 Esophageal obstruction; I10 Essential (primary) hypertension; J44.9 Chronic obstructive pulmonary disease, unspecified; Z88.8 Allergy status to other drugs, medicaments and biological substances; Z98.84 Bariatric surgery status
CPT/HCPCS: 43249; 94640; J1100; J2250; J3010; J3411; J3420; J3490; J7120; J7620-GY

== ENCOUNTER 2021-04-19 07:24 | Day surgery (SDC) | payer MEDICARE, OTHER ==
[~2021-04-19 07:24] MED LIST changes: -Dexamethasone 4 MG/ML SDV ONE; -Glycopyrrolate 0.2 MG/ML 5 ML MDV ONE; +Lactated Ringers 1,000 ML IV ONE; -Lactated Ringers 1,000 ML ONE; -Meropenem 500 MG SDV ONE; +Midazolam 1 MG/ML 2 ML SDV ONE; -Neostigmine Methylsulfate 1 MG/ML 5 ML Syringe ONE; -Ondansetron 4 MG/2 ML SDV ONE; -Rocuronium 50 MG/5 ML Vial ONE; -Succinylcholine 200 MG/10 ML MDV ONE; -cefOXitin 2 GM Vial ONE; +fentaNYL 100 MCG/2 ML SDV ONE; -fentaNYL 250 MCG/5 ML SDV ONE
[2021-04-19] MEDS ORDERED: Cyanocobalamin (Vitamin B12) 1,000 MCG/ML SDV IM ONE (07:30)
[2021-04-19] MEDS ORDERED: Propofol 200 MG/20 ML SDV ONE (09:10)
[2021-04-19] MEDS ORDERED: fentaNYL 100 MCG/2 ML SDV ONE (09:10)
[2021-04-19] MEDS ORDERED: Midazolam 1 MG/ML 2 ML SDV ONE (09:10)
[2021-04-19] MEDS ORDERED: MVI, Adult with Vitamin K 10 ML, Thiamine 200 MG, Zinc/Copper/Manganese/Selenium 1 ML i... IV ONE ×4 (09:30)
[2021-04-19] MEDS ORDERED: Glycopyrrolate 0.2 MG/ML 2 ML SDV IVPUSH ONE (10:00)
[2021-04-19 12:22] VITALS: BP 108/64; PULSE 82
--- NOTE | 2021-04-25 12:08 | OR ---
DATE OF PROCEDURE: 04/19/2021 SURGEON: Crescencio Anderson MD PREOPERATIVE DIAGNOSIS: Possible stricture at gastrojejunostomy. POSTOPERATIVE DIAGNOSIS: Mild stricture at gastrojejunostomy. PROCEDURE PERFORMED: Upper gastrointestinal endoscopy with dilation of gastrojejunostomy (74516). ANESTHESIA: IV sedation. INDICATION FOR PROCEDURE: This is a 56-year-old status post open Jennie-en-Y gastric bypass on 10/12/2020. She presents now with some symptoms of stricturing at her gastrojejunostomy. Plan is to proceed with upper GI endoscopy with dilation as indicated. Potential risks including bleeding and perforation were discussed, and the patient wishes to proceed. DETAILS OF PROCEDURE: The patient was taken to the operating room and placed in a left lateral decubitus position. IV sedation was administered after which the upper GI endoscope was passed orally through the length of the esophagus and into the gastric pouch. The scope was able to pass through the gastrojejunostomy which was only mildly narrowed, and the visualized portion of the Jennie limb was unremarkable. There was no significant mucosal inflammation at or around the gastrojejunostomy. The Bard gastrointestinal catheter was then centered across the anastomosis and inflated to 54-Russian size. This was held in position for one minute after which the balloon catheter was deflated and withdrawn. There was a small amount of heme present, indicating some degree of dilation, but otherwise this was a fairly wide open anastomosis. The scope was withdrawn and the procedure concluded. The patient was taken to the recovery room in satisfactory condition. Crescencio Anderson MD /[id number]
== END 2021-04-19 13:00 | disposition home or self-care (01) ==
LOC: JP.SDS 07:24
PROVIDERS: ATTEND Surgery
DX: K91.89 Other postprocedural complications and disorders of digestive system (principal); Z98.84 Bariatric surgery status; E11.9 Type 2 diabetes mellitus without complications; J44.9 Chronic obstructive pulmonary disease, unspecified; F17.200 Nicotine dependence, unspecified, uncomplicated
CPT/HCPCS: 43245; J2250; J2704; J3010; J3411; J3420; J3490; J7120

== ENCOUNTER 2021-04-26 05:17 | Inpatient (IN) | payer MEDICARE, OTHER ==
[2021-04-26] MEDS ORDERED: Budesonide 0.5 MG/2 ML Neb Susp NEB ONE (06:10)
[2021-04-26] MEDS ORDERED: Acetaminophen 500 MG Tab PO ONE (06:24)
[2021-04-26] MEDS ORDERED: Albuterol/Ipratropium 3.0-0.5 MG/3 ML Neb Soln NEB ONE ×2 (06:26→06:30)
[2021-04-26] MEDS ORDERED: Meropenem 500 MG SDV ONE (06:28)
[2021-04-26] MEDS ORDERED: Scopolamine 1.5 MG Transdermal Patch TOP SCH (06:32)
[2021-04-26] MEDS ORDERED: Lidocaine 1% with EPINEPHrine 1:100,000 50 ML MDV ONE (06:40)
[2021-04-26] MEDS ORDERED: Bupivacaine 0.5% 50 ML MDV ONE (06:40)
[2021-04-26] MEDS ORDERED: Dextrose 5%-Lactated Ringers 1,000 ML IV SCH (06:45)
[2021-04-26] MEDS ORDERED: ceFAZolin 2 GM in Sodium Chloride 0.9% 100 ML IV ONE (06:50)
[2021-04-26] MEDS ORDERED: Glycopyrrolate 0.2 MG/ML 5 ML MDV ONE (07:09)
[2021-04-26] MEDS ORDERED: Succinylcholine 200 MG/10 ML MDV ONE (07:09)
[2021-04-26] MEDS ORDERED: Etomidate 2 MG/ML 10 ML SDV ONE (07:09)
[2021-04-26] MEDS ORDERED: Rocuronium 50 MG/5 ML Vial ONE (07:09)
[2021-04-26] MEDS ORDERED: fentaNYL 250 MCG/5 ML SDV ONE ×2 (07:09→07:36)
[2021-04-26] MEDS ORDERED: Neostigmine Methylsulfate 1 MG/ML 5 ML Syringe ONE (07:09)
[2021-04-26] MEDS ORDERED: Ondansetron 4 MG/2 ML SDV ONE (07:09)
[2021-04-26] MEDS ORDERED: Dexamethasone 4 MG/ML SDV ONE (07:09)
[2021-04-26] MEDS ORDERED: diphenhydrAMINE 25 MG Cap PO PRN (07:18)
[2021-04-26] MEDS ORDERED: Ondansetron 4 MG/2 ML SDV IVPUSH PRN (07:18)
[2021-04-26] MEDS ORDERED: Naloxone 0.4 MG/ML SDV IVPUSH PRN (07:18)
[2021-04-26] MEDS ORDERED: diphenhydrAMINE 50 MG/ML SDV IVPUSH PRN ×2 (07:18→12:00)
[2021-04-26] MEDS ORDERED: Ketamine 500 MG/5 ML MDV IV SCH (07:30)
[2021-04-26] MEDS ORDERED: Ketamine 50 MG in Sodium Chloride 0.9% 49.5 ML IV SCH (07:30)
[2021-04-26] MEDS ORDERED: ceFAZolin 2 GM in Premix Bag 1 BAG IV ONE (07:30)
[2021-04-26] MEDS ORDERED: Ropivacaine 44 ML, dexAMETHasone 8 MG, EPINEPHrine 0.4 MG, Sodium Chloride 0.9% 33.6 ML NERVRT SCH ×4 (07:30)
[2021-04-26] MEDS ORDERED: Lactated Ringers 1,000 ML ONE (09:04)
[2021-04-26] MEDS ORDERED: hydrOXYzine HCL 100 MG/2 ML SDV IM ONE (09:30)
[2021-04-26] MEDS: HYDROmorphone/Normal Saline 15 MG/30 ML PCA IV PRN (10:20)
[2021-04-26] MEDS ORDERED: Albuterol/Ipratropium 3.0-0.5 MG/3 ML Neb Soln ONE (11:11)
[2021-04-26] MEDS ORDERED: Cyclobenzaprine 10 MG Tab PO PRN (11:19)
[2021-04-26] MEDS ORDERED: ClonazePAM 0.5 MG Tab PO PRN (11:30)
[2021-04-26] MEDS ORDERED: hydrOXYzine HCL 100 MG/2 ML SDV IM PRN (12:00)
[2021-04-26] MEDS ORDERED: Acetaminophen 500 MG Tab PO PRN (12:00)
[2021-04-26] MEDS ORDERED: Metoclopramide 10 MG/2 ML SDV IVPUSH PRN (12:00)
[2021-04-26] MEDS ORDERED: Albuterol/Ipratropium 3.0-0.5 MG/3 ML Neb Soln INH PRN (12:00)
[2021-04-26] MEDS ORDERED: Labetalol 20 MG/4 ML Syringe IVPUSH PRN (12:00)
[2021-04-26] MEDS: Pantoprazole 40 MG Vial IVPUSH SCH (14:00)
[2021-04-26] MEDS: Dextrose 5%-Lactated Ringers 1,000 ML IV SCH ×2 (14:00→20:23)
[2021-04-26] MEDS: Acetaminophen 500 MG Tab PO SCH ×2 (14:01→22:11)
[2021-04-26] MEDS: Albuterol/Ipratropium 3.0-0.5 MG/3 ML Neb Soln INH SCH ×3 (14:31→22:11)
[2021-04-26] MEDS: ceFAZolin 2 GM in Premix Bag 1 BAG IV SCH (15:17)
[2021-04-26] MEDS ORDERED: MVI, Adult with Vitamin K 10 ML, Thiamine 200 MG, Zinc/Copper/Manganese/Selenium 1 ML i... IV SCH ×4 (16:00)
[2021-04-26] MEDS: Multivitamins with Iron/Calcium/Folic Acid/Minerals Tab PO SCH ×2 (19:39→22:11)
[2021-04-26] MEDS: Budesonide 0.5 MG/2 ML Neb Susp INH SCH ×2 (19:41→22:11)
[2021-04-27] MEDS: ceFAZolin 2 GM in Premix Bag 1 BAG IV SCH ×2 (00:02→07:31)
[2021-04-27] MEDS: Dextrose 5%-Lactated Ringers 1,000 ML IV SCH ×4 (02:40→22:41)
[2021-04-27] MEDS ORDERED: Iopamidol 612 MG/ML 50 ML SDV PO STA (05:02)
[2021-04-27] MEDS ORDERED: Acetaminophen 500 MG Tab PO ONE (05:32)
[2021-04-27] MEDS: Acetaminophen 500 MG Tab PO SCH ×4 (05:53→21:34)
[2021-04-27] MEDS ORDERED: Albuterol/Ipratropium 3.0-0.5 MG/3 ML Neb Soln NEB ONE (06:30)
[2021-04-27] MEDS ORDERED: Dextrose 5%-Lactated Ringers 1,000 ML IV SCH (06:35)
[2021-04-27] MEDS: Albuterol/Ipratropium 3.0-0.5 MG/3 ML Neb Soln INH SCH ×4 (07:10→20:27)
[2021-04-27] MEDS: Budesonide 0.5 MG/2 ML Neb Susp INH SCH ×2 (07:10→20:28)
[2021-04-27] MEDS: ANORO ELLIPTA 62.5MCG/25MCG INHALER (PTOM) INH SCH (07:31)
[2021-04-27] MEDS: Levothyroxine 100 MCG, Levothyroxine 25 MCG PO SCH ×2 (07:35)
[2021-04-27] MEDS: Celecoxib 200 MG Cap PO SCH ×2 (09:06→20:29)
[2021-04-27] MEDS: SCOPOLAMINE PATCH CHECK TOP SCH (09:06)
[2021-04-27] MEDS: Multivitamins with Iron/Calcium/Folic Acid/Minerals Tab PO SCH ×2 (09:06→20:28)
--- NOTE | 2021-04-27 09:32 | CR ---
UGI Limited HISTORY: Postbariatric surgery/revision FINDINGS: Patient swallowed water-soluble contrast. Upright views of the abdomen show no evidence of extravasation or obstruction. There is been previous ventral hernia repair. IMPRESSION: Status post bariatric surgery No extravasation or obstruction seen
--- NOTE | 2021-04-27 10:07 | PN ---
DATE OF SERVICE: 04/27/2021 SUBJECTIVE: Lv is postop day 1. Vital signs have been stable. She has been up ambulating. Oral intake 800. Output via Barahona catheter 1075. Pain is controlled with a CRISIS INTERVENTION COUNSELOR. REVIEW OF SYSTEMS: Remainder of review of systems negative for any pertinent positives and negatives. OBJECTIVE: GENERAL: Lv is a pleasant 56-year-old female. She is alert and oriented. VITAL SIGNS: TPR 96, 63, 16, blood pressure 108/64. HEENT: Negative. NECK: Supple. HEART: Regular rate and rhythm. LUNGS: Clear. ABDOMEN: Dressing dry and intact. Abdominal binder is on. EXTREMITIES: Without peripheral edema. ASSESSMENT: Exploratory laparotomy with lysis of extensive adhesions. 1. Repair of recurrent incisional hernia with mesh. 2. Reduction of small bowel volvulus. 3. Small bowel strictureplasty. 4. Excision of calcified intraperitoneal mesh involving abdominal wall area with remnant adherent intraperitoneal mesh. 5. Placement of intraperitoneal mesh. POSTOPERATIVE DIAGNOSES: 1. Recurrent incarcerated incisional hernia. 2. Extensive small bowel adhesions. 3. Focal small bowel volvulus. 4. Separate small bowel stricture. 5. Calcified area portion of mass 8 cm associated with recently placed intra-abdominal mesh. Date of procedure 04/26/2021. Surgeon: Crescencio Anderson MD. PLAN: 1. Decrease IV rate to 100 mL/hr. 2. Discontinue Barahona catheter. 3. Continue step 1 gastric bypass diet. 4. Continued use of incentive spirometer and ambulation. 5. We will evaluate p.r.n. or in a.m. Noelle Colvin PA-C /[id number]
[2021-04-27] MEDS: HYDROmorphone/Normal Saline 15 MG/30 ML PCA IV PRN (10:11)
[2021-04-27] MEDS: Pantoprazole 40 MG Vial IVPUSH SCH (12:43)
[2021-04-27] MEDS: Ondansetron 4 MG/2 ML SDV IVPUSH PRN (16:28)
[2021-04-28] MEDS: Ondansetron 4 MG/2 ML SDV IVPUSH PRN (05:10)
[2021-04-28] MEDS: Acetaminophen 500 MG Tab PO SCH ×3 (05:11→21:02)
[2021-04-28] MEDS: Albuterol/Ipratropium 3.0-0.5 MG/3 ML Neb Soln INH SCH ×4 (07:17→21:01)
[2021-04-28] MEDS: Budesonide 0.5 MG/2 ML Neb Susp INH SCH ×2 (07:17→21:01)
[2021-04-28] MEDS: ANORO ELLIPTA 62.5MCG/25MCG INHALER (PTOM) INH SCH (07:54)
[2021-04-28] MEDS: Levothyroxine 100 MCG, Levothyroxine 25 MCG PO SCH ×2 (07:55)
[2021-04-28] MEDS: Dextrose 5%-Lactated Ringers 1,000 ML IV SCH ×2 (08:54→19:06)
[2021-04-28] MEDS: HYDROmorphone 2 MG Tab PO PRN ×4 (08:55→22:05)
[2021-04-28] MEDS: Bisacodyl 5 MG Tab PO SCH ×2 (08:55→21:02)
[2021-04-28] MEDS: Docusate Sodium 100 MG Cap PO SCH ×2 (08:55→21:01)
[2021-04-28] MEDS: Multivitamins with Iron/Calcium/Folic Acid/Minerals Tab PO SCH ×2 (08:55→21:02)
[2021-04-28] MEDS: Celecoxib 200 MG Cap PO SCH ×2 (08:55→21:01)
[2021-04-28] MEDS: SCOPOLAMINE PATCH CHECK TOP SCH (08:56)
[2021-04-28] MEDS ORDERED: Cyanocobalamin (Vitamin B12) 1,000 MCG/ML SDV IM ONE (09:00)
--- NOTE | 2021-04-28 10:28 | PN ---
DATE OF SERVICE: 04/28/2021 SUBJECTIVE: Lv reports her surgical pain is controlled. Her oral intake 1020. Urine output 550. IV continues to run at 100 mL per hour. She does report bilateral soft tissue neck pain. Pain is with movement. Denies any sore throat. REVIEW OF SYSTEMS: Remainder of review of systems negative for any pertinent positives and negatives. OBJECTIVE: GENERAL: Lv is a pleasant 56-year-old female. She is alert and orientated. VITAL SIGNS: TPR 96.5, 77, 16, blood pressure is 101/56. HEENT: Negative. NECK: Supple. HEART: Regular rate and rhythm. LUNGS: Clear. ABDOMEN: Dressings dry and intact. Aquacel dressing on. EXTREMITIES: Without peripheral edema. ASSESSMENT: 1. New musculoskeletal neck pain. 2. Exploratory laparotomy with lysis of extensive adhesions. a. Repair of recurrent incisional hernia with mesh. b. Reduction of small bowel volvulus. c. Small bowel strictureplasty. d. Excision of calcified intraperitoneal mesh involving abdominal wall area with remnant adherence to intraperitoneal mesh. e. Placement of intraperitoneal mesh. POSTOPERATIVE DIAGNOSES: 1. Recurrent incarcerated incisional hernia. 2. Extensive small-bowel adhesions. 3. Focal small bowel volvulus. 4. Separate small-bowel stricture. 5. Calcified area of mass, 8 cm, associated with recently placed intra-abdominal mesh. 6. Date of procedure: 04/26/2021. Surgeon: Crescencio Anderson MD. PLAN: 1. Discontinue DIGITAL DESIGN ENGINEER and continuous pulse ox. 2. Dilaudid 2 to 4 mg every 4 hours p.r.n. pain. 3. May apply heat or ice to neck, whichever one would benefit her the most. 4. May shower. 5. Dulcolax 2 tablets b.i.d. 6. Colace 100 mg p.o. b.i.d. 7. Continue use of incentive spirometer. 8. We will evaluate p.r.n. or in a.m. Noelle Colvin PA-C /[id number]
[2021-04-28] MEDS: Pantoprazole 40 MG Delayed-Release Granules 1 Packet PO SCH (17:05)
[2021-04-29] MEDS: HYDROmorphone 2 MG Tab PO PRN ×2 (01:49→19:24)
[2021-04-29] MEDS: Ondansetron 4 MG/2 ML SDV IVPUSH PRN (01:57)
[2021-04-29] MEDS: Acetaminophen 500 MG Tab PO SCH ×3 (05:12→21:00)
[2021-04-29] MEDS: Dextrose 5%-Lactated Ringers 1,000 ML IV SCH (05:15)
[2021-04-29] MEDS ORDERED: PROCHLORPERAZINE 5 MG PO PRN (06:57)
[2021-04-29] MEDS: Budesonide 0.5 MG/2 ML Neb Susp INH SCH ×2 (07:00→20:53)
[2021-04-29] MEDS: Albuterol/Ipratropium 3.0-0.5 MG/3 ML Neb Soln INH SCH ×4 (07:00→20:53)
[2021-04-29] MEDS ORDERED: Prochlorperazine 10 MG Tab PO PRN (07:07)
[2021-04-29] MEDS: ANORO ELLIPTA 62.5MCG/25MCG INHALER (PTOM) INH SCH (07:10)
[2021-04-29] MEDS ORDERED: Furosemide 20 MG/2 ML VIAL IVPUSH ONE (07:30)
[2021-04-29] MEDS: Levothyroxine 100 MCG, Levothyroxine 25 MCG PO SCH ×2 (07:33)
[2021-04-29] MEDS: Magnesium Sulfate/Water 2 GM/50 ML BAG IV SCH ×2 (07:51→13:15)
[2021-04-29] MEDS: Docusate Sodium 100 MG Cap PO SCH ×2 (08:20→20:53)
[2021-04-29] MEDS: Celecoxib 200 MG Cap PO SCH ×2 (08:20→20:54)
[2021-04-29] MEDS: Bisacodyl 5 MG Tab PO SCH ×2 (08:20→20:53)
[2021-04-29] MEDS: Multivitamins with Iron/Calcium/Folic Acid/Minerals Tab PO SCH ×2 (08:20→20:54)
--- NOTE | 2021-04-29 08:49 | PN ---
DATE OF SERVICE: 04/29/2021 SUBJECTIVE: Lv is passing flatus. Oral intake is 910. Urine output 950. Pain is controlled with oral Dilaudid. Potassium is 3.2 this morning. Bilirubin is elevated at 1.6. BNP is 659. Creatinine was good at 0.7 with estimated GFR greater than 60. REVIEW OF SYSTEMS: Remainder of review of systems negative for any pertinent positives and negatives. OBJECTIVE: GENERAL: Lv is a pleasant 56-year-old female. She is alert and orientated. VITAL SIGNS: TPR 95.4, 77, 18, blood pressure is 132/69. HEENT: Negative. NECK: Supple. HEART: Regular rate and rhythm. LUNGS: Clear. ABDOMEN: Dressing dry and intact. Abdominal binder on. EXTREMITIES: Without peripheral edema. ASSESSMENT: 1. New musculoskeletal neck pain, resolved. 2. Exploratory laparotomy with lysis of extensive adhesions. a. Repair of recurrent incisional hernia with mesh. b. Reduction of small bowel volvulus. c. Small bowel strictureplasty. d. Excision of calcified intraperitoneal mesh involving abdominal area with remnant adherence to intraperitoneal mesh. e. Placement of intraperitoneal mesh. POSTOPERATIVE DIAGNOSES: 1. Recurrent incarcerated incisional hernia. 2. Extensive small-bowel adhesions. 3. Focal small bowel volvulus. 4. Separate small-bowel stricture. 5. Calcified area of mass 8 cm associated with recently placed intraabdominal mesh. 6. Date of procedure: 04/26/2021. Surgeon: Crescencio Anderson MD. PLAN: 1. Compazine 5 mg p.o. q.8 hours p.r.n. nausea, which she takes at home. 2. Step 4 gastric bypass diet . 3. Dietary consult. 4. KCl 40 mEq IV b.i.d. today only. 5. Magnesium 2 g IV q.6 hours x48 hours. 6. Lasix 20 mg IV 1 time. 7. We will evaluate p.r.n. or in a.m. 8. Check labs in a.m. Noelle Colvin PA-C /[id number]
[2021-04-29] MEDS ORDERED: Potassium Chloride Riders 40 MEQ in Premix Bag 1 BAG IV SCH (09:00)
[2021-04-29] MEDS: Potassium Chloride 20 MEQ, Lidocaine 1% 2 ML in Sodium Chloride 0.9% 100 ML IV SCH ×3 (10:11→14:40)
[2021-04-29] MEDS ORDERED: Ondansetron 4 MG Tab.DIS PO PRN (15:40)
[2021-04-29] MEDS: Pantoprazole 40 MG Delayed-Release Granules 1 Packet PO SCH (16:37)
[2021-04-30] MEDS: HYDROmorphone 2 MG Tab PO PRN (03:03)
[2021-04-30] MEDS: Acetaminophen 500 MG Tab PO SCH (06:14)
[2021-04-30] MEDS: Albuterol/Ipratropium 3.0-0.5 MG/3 ML Neb Soln INH SCH (07:28)
[2021-04-30] MEDS: Budesonide 0.5 MG/2 ML Neb Susp INH SCH (07:29)
[2021-04-30] MEDS: Levothyroxine 100 MCG, Levothyroxine 25 MCG PO SCH ×2 (07:34)
[2021-04-30 07:56] VITALS: BP 133/71; PULSE 87
--- NOTE | 2021-05-01 12:57 | OR ---
DATE OF PROCEDURE: 04/26/2021 SURGEON: Crescencio Anderson MD PREOPERATIVE DIAGNOSIS: Recurrent incisional hernia. POSTOPERATIVE DIAGNOSES: 1. Recurrent incarcerated incisional hernia. 2. Extensive intraabdominal adhesions. 3. Focal small bowel volvulus. 4. Small bowel stricture. 5. Calcified intraperitoneal mass adherent to in a part with previously placed intraabdominal mesh. OPERATIVE PROCEDURES: Exploratory laparotomy with lysis of extensive adhesions: 1. Repair of recurrent incarcerated incisional hernia with mesh (22074, 21862). 2. Reduction of small bowel volvulus with closure of internal hernia (49742). 3. Small bowel stricturoplasty (37378). 4. Excision of calcified intraperitoneal mass underlying abdominal wall which had become adherent to and engulfing a section of intraperitoneal mesh (36205, 23343). 5. Placement of Vicryl mesh to displace pelvic and abdominal wall from underlying viscera to limit recurrent adhesion formation (69214). ANESTHESIA: General. AIR AND WATER FILLER: Noelle Colvin PA-C INDICATIONS FOR PROCEDURE: This is a 56-year-old status post Jennie-en-Y gastric bypass presenting with progressively enlarging and symptomatic incisional hernia. The hernia had been repaired in the past with mesh placement and subsequent mesh removal and the plan is to proceed with an open repair with mesh with other procedures as indicated based on intraoperative findings. Potential risks of the procedure including bleeding, infection, injury to underlying viscera, problems with hernia mesh becoming infected or the hernia recurring as well as remote possibility of cardiopulmonary, septic, or hemorrhagic complications leading to were discussed, and the patient wishes to proceed. DETAILS OF PROCEDURE: The patient was taken to the operating room. After general endotracheal anesthesia was induced, a Barahona catheter was inserted and the abdomen prepped and draped. A previous upper midline incision was reused and carried down through the skin and subcutaneous tissue. The main body of the hernia was then encountered and the peritoneum within it dissected down to the level of fascia circumferentially and at that point the hernia sac opened. There was a significant amount of incarcerated material within the hernia sac. This was seen over the transverse colon and omentum. These were dissected free from the hernia sac and the hernia sac was then excised. General exploration at this point then showed quite a bit in the way of additional adhesions which were taken down in all directions to allow adequate placement of the mesh. The patient was noted to have some very distended small bowel. There was a focal small bowel volvulus with the portion of the common limb passing from a right to left direction underneath the Jennie limb. This was reduced and that defect was then closed off with a 2-0 silk stitch. There was also an area of small bowel stricturing related to some intense adhesion formation. The bowel proximal to this area of stricturing was somewhat dilated indicating a partial ongoing obstruction. The intense adhesions were then carefully dissected away from that segment of bowel until it became elongated and straightened, and at that point, the stricturoplasty was completed. In this case, the stricturoplasty did not require entrance of the lumen of the small bowel. Upon entering the abdomen, the patient was noted to have an 8 cm intraperitoneal mass which appeared to be somewhat calcified. This was underlying the abdominal wall and was attached to and somewhat engulfed the segment of intraperitoneal mesh. This mass along with a portion of some old intraperitoneal mesh which was no longer in use was excised as a single unit. At this point, there was good clearance of adhesions in all directions to allow adequate placement of the mesh. A Ventrio ST hernia patch measuring 22.1 x 27.1 cm was selected. At 5 cm intervals along its circumference, 2-0 Vicryl stitches were placed on the polypropylene side of the mesh. The mesh was then soaked in antibiotic-containing saline solution. At the premarked locations where the sutures would be pulled up, stab wounds were placed. These were positioned such that the sutures would be pulling the mesh up and then positioning well away from the fascial defect. The orientation of the mesh was with a long axis in the vertical midline. Once the upper half of the sutures were pulled up and the mesh pulled within that area, Vicryl mesh was then placed underneath this area as well as down toward the lower abdomen and pelvis to displace those surfaces from the underlying viscera to limit recurrent adhesion formation. The remainder of the mesh sutures were then pulled up, thus fixing the mesh in general position and the underlying shelf titanium tacking screws were then placed between the mesh and the overlying abdominal wall. Once these were in position, the mesh was once again irrigated with antibiotic-containing saline solution. The midline fascia was then approximated with #2 Vicryl stitch, subcutaneous tissue with 2 layers of 3-0 and 4-0 Vicryl stitch, and the skin with jeromy. At closure, bilateral transversus abdominis plane blocks were then placed and the incision was anesthetized with 1% lidocaine mixed with Marcaine as well and the patient taken to the recovery room in satisfactory condition. Physician assistant center manager, Noelle Colvin, played an essential role in assisting in this case, helping to position the patient, retract structures as needed as well as suturing and cutting sutures when indicated. Her presence improved patient safety and decreased the operative time. Crescencio Anderson MD /[id number]
--- NOTE | 2021-05-01 15:56 | DISCH ---
FINAL DIAGNOSES: 1. Recurrent incarcerated incisional hernia. 2. Extensive small bowel adhesions. 3. Small bowel volvulus. 4. Separate small bowel stricture. 5. Calcified intraperitoneal mass underlying the abdominal wall admixed with some previously placed intraperitoneal mesh. SECONDARY DIAGNOSES: 1. Bariatric surgery status. 2. History of hypertension. 3. Chronic nausea. 4. Treated hypothyroidism. 5. Chronic obstructive pulmonary disease with bronchospastic predominance. 6. Psoriatic arthritis. 7. Hypokalemia. OPERATIVE PROCEDURE: Done on 04/26, exploratory laparotomy with lysis of adhesions: 1. Repair of recurrent incarcerated incisional hernia with mesh. 2. Reduction of small bowel volvulus and closure of internal hernia. 3. Small bowel strictureplasty. 4. Excision of calcified intraperitoneal mass adherent to and admixed with previously placed intraperitoneal mesh. 5. Placement of Vicryl mesh to displace pelvic and abdominal wall from underlying viscera to limit recurrent adhesion formation. SUMMARY: This is a 56-year-old female presenting with increasingly symptomatic recurrent incisional hernia. On the day of admission, the patient underwent the above operation with the above-noted findings. Postoperatively, she had a little bit slow recovery of GI tract function, but this now has returned and she is moving bowels and eating a step-4 diet satisfactorily. She will be sent home on her usual medications plus Dilaudid 2 mg p.o. q.6 hours p.r.n. pain, #12; Celebrex 200 mg p.o. b.i.d. x1 month; and Tylenol 1 g p.o. q.i.d. p.r.n. She also was noted to be hypokalemic and will be sent home on potassium chloride 20 mEq p.o. daily x30 days. She will be following up with Noelle Colvin PA-C, at [facility] on 05/06/2021. /[id number]
== END 2021-04-30 08:36 | disposition home or self-care (01) | DRG 329 ==
LOC: JP.SDS 05:17 → JP.MS 05:17 → EDSTATUS 07:15 → JP.MS 08:50
PROVIDERS: ADMIT Surgery; ATTEND Surgery
PROC: 0WUF0JZ Supplement Abdominal Wall with Synthetic Substitute, Open Approach (ICD-10-PCS; principal; 2021-04-26)
PROC: 0DS80ZZ Reposition Small Intestine, Open Approach (ICD-10-PCS; 2021-04-26)
PROC: 0DQV0ZZ Repair Mesentery, Open Approach (ICD-10-PCS; 2021-04-26)
PROC: 0DBW0ZZ Excision of Peritoneum, Open Approach (ICD-10-PCS; 2021-04-26)
PROC: 3E0M05Z Introduction of Adhesion Barrier into Peritoneal Cavity, Open Approach (ICD-10-PCS; 2021-04-26)
DX: K43.0 Incisional hernia with obstruction, without gangrene (principal); K56.2 Volvulus; K56.50 Intestinal adhesions [bands], unspecified as to partial versus complete obstruction; K21.9 Gastro-esophageal reflux disease without esophagitis; E03.9 Hypothyroidism, unspecified; M54.9 Dorsalgia, unspecified; G89.29 Other chronic pain; E66.9 Obesity, unspecified; I10 Essential (primary) hypertension; J44.9 Chronic obstructive pulmonary disease, unspecified; E87.6 Hypokalemia; L40.50 Arthropathic psoriasis, unspecified; E11.9 Type 2 diabetes mellitus without complications; Z79.890 Hormone replacement therapy; Z79.899 Other long term (current) drug therapy; Z88.0 Allergy status to penicillin; Z88.8 Allergy status to other drugs, medicaments and biological substances; Z98.84 Bariatric surgery status; Z68.31 Body mass index [BMI] 31.0-31.9, adult
CPT/HCPCS: 36415; 74240; 74240-26; 80053; 83735; 83880; 84100; 84443; 85027; 94640; 94762; A9270-GY; C1713; C1781; C9113; J0171; J0330; J0690; J1100; J1170; J1940; J2020; J2185; J2405; J2710; J2795; J3010; J3410; J3420; J3475; J3480; J3490; J7120; J7121; J7620-GY; Q0164; Q9967

== ENCOUNTER 2024-12-25 17:54 | Emergency (ER) | payer MEDICARE, OTHER ==
[2024-12-25 20:10] LABS: BASOPHILS PERCENT AUTO 0.2 % (0.1-1.3); EOSINOPHILS ABSOLUTE AUTO 0.26 K/uL (0.00-0.40); HEMATOCRIT 34.6 % (34.3-46.0); HEMOGLOBIN 12.3 g/dL (11.2-15.5); IMMATURE GRAN ABSOLUTE AUTO 0.03 K/uL (0.00-0.23); IMMATURE GRAN PERCENT AUTO 0.5 % (0.0-0.7); LYMPHOCYTES PERCENT AUTO 29.5 % (11.4-47.7); MEAN CORPUSCULAR HEMOGLOBIN 30.7 pg (31.6-35.5); MEAN CORPUSCULAR HGB CONC 35.5 g/dL (31.6-35.5); MEAN CORPUSCULAR VOLUME 86.3 fL (81.4-99.0); MONOCYTES ABSOLUTE AUTO 0.38 K/uL (0.20-0.90); MONOCYTES PERCENT AUTO 5.9 % (3.3-12.6); NEUTROPHILS ABSOLUTE AUTO 3.87 K/uL (1.0-7.6); NEUTROPHILS PERCENT AUTO 59.9 % (40.0-78.1); PLATELET COUNT,PLT 233 K/uL (130-375); RED BLOOD CELL COUNT 4.01 M/uL (3.77-5.24); WHITE BLOOD CELL COUNT,WBC 6.5 K/uL (3.2-11.0)
[2024-12-25 20:20] LABS: BASOPHILS ABSOLUTE AUTO 0.01 K/uL (0.00-0.10)
[2024-12-25 20:37] LABS: A/G RATIO 0.9 (1.2-2.2); ALANINE AMINOTRANSFERASE,ALT 49 U/L (12-78); ALKALINE PHOSPHATASE 44 U/L (46-116); ANION GAP 7.9 mmol/L (5.0-14.0); ASPARTATE AMNIOTRANSFERASE,AST 23 U/L (15-37); BILIRUBIN TOTAL 0.4 mg/dL (0.2-1.0); BLOOD UREA NITROGEN,BUN 13 mg/dL (7-18); C-REACTIVE PROTEIN 2.78 mg/dL (<0.50); CALCIUM 8.9 mg/dL (8.5-10.1); CARBON DIOXIDE,CO2 28 mmol/L (21-32); CHLORIDE,CL 105 mmol/L (100-108); CREATININE 0.8 mg/dL (0.6-1.0); EST CRCL DRUG DOSING (CG) 72.63 mL/min; ESTIMATED GFR 86 mL/min (>60); GLUCOSE RANDOM 85 mg/dL (74-106); PROTEIN TOTAL,TP 6.5 g/dL (6.4-8.2); SODIUM,NA 141 mmol/L (140-148)
[2024-12-25 21:01] VITALS: BP 94/55; PULSE 64
== END 2024-12-25 21:21 | disposition home or self-care (01) ==
LOC: JP.ED 17:54
DX: L76.82 Other postprocedural complications of skin and subcutaneous tissue (principal); I10 Essential (primary) hypertension; J44.9 Chronic obstructive pulmonary disease, unspecified; E11.9 Type 2 diabetes mellitus without complications; E03.9 Hypothyroidism, unspecified; Z98.890 Other specified postprocedural states; Z88.4 Allergy status to anesthetic agent; Z88.0 Allergy status to penicillin; Z88.5 Allergy status to narcotic agent; Z91.048 Other nonmedicinal substance allergy status; Z79.899 Other long term (current) drug therapy; Z79.4 Long term (current) use of insulin; Z79.890 Hormone replacement therapy
CPT/HCPCS: 36415; 80053; 83605; 85025; 86140; 99283

== ENCOUNTER 2024-12-31 21:40 | Emergency (ER) | payer MEDICARE, OTHER ==
[2024-12-31] MEDS ORDERED: Sodium Chloride 0.9% 1,000 ML IV SCH (22:00)
[2024-12-31 22:24] VITALS: BP 107/62; PULSE 71
[2024-12-31] MEDS ORDERED: Sodium Chloride 0.9% 10 ML Syringe FLUSH PRN (22:46)
[2024-12-31] MEDS: Ondansetron 4 MG/2 ML SDV IVPUSH ONE (23:01)
[2024-12-31 23:02] LABS: BASOPHILS ABSOLUTE AUTO 0.06 K/uL (0.00-0.10); BASOPHILS PERCENT AUTO 0.8 % (0.1-1.3); EOSINOPHILS ABSOLUTE AUTO 0.43 K/uL (0.00-0.40); EOSINOPHILS PERCENT AUTO 5.6 % (0.0-5.4); HEMATOCRIT 37.1 % (34.3-46.0); HEMOGLOBIN 12.8 g/dL (11.2-15.5); IMMATURE GRAN ABSOLUTE AUTO 0.06 K/uL (0.00-0.23); IMMATURE GRAN PERCENT AUTO 0.8 % (0.0-0.7); LYMPHOCYTES ABSOLUTE AUTO 2.58 K/uL (0.8-3.3); LYMPHOCYTES PERCENT AUTO 33.4 % (11.4-47.7); MEAN CORPUSCULAR HEMOGLOBIN 30.5 pg (31.6-35.5); MEAN CORPUSCULAR HGB CONC 34.5 g/dL (31.6-35.5); MEAN CORPUSCULAR VOLUME 88.5 fL (81.4-99.0); MONOCYTES ABSOLUTE AUTO 0.51 K/uL (0.20-0.90); MONOCYTES PERCENT AUTO 6.6 % (3.3-12.6); NEUTROPHILS ABSOLUTE AUTO 4.08 K/uL (1.0-7.6); NEUTROPHILS PERCENT AUTO 52.8 % (40.0-78.1); PLATELET COUNT,PLT 291 K/uL (130-375); RED BLOOD CELL COUNT 4.19 M/uL (3.77-5.24); WHITE BLOOD CELL COUNT,WBC 7.7 K/uL (3.2-11.0)
[2024-12-31 23:29] LABS: A/G RATIO 0.9 (1.2-2.2); ALANINE AMINOTRANSFERASE,ALT 32 U/L (12-78); ALBUMIN 3.2 g/dL (3.4-5.0); ALKALINE PHOSPHATASE 59 U/L (46-116); ANION GAP 8.5 mmol/L (5.0-14.0); ASPARTATE AMNIOTRANSFERASE,AST 20 U/L (15-37); BILIRUBIN TOTAL 0.3 mg/dL (0.2-1.0); BLOOD UREA NITROGEN,BUN 23 mg/dL (7-18); CALCIUM 9.2 mg/dL (8.5-10.1); CARBON DIOXIDE,CO2 28 mmol/L (21-32); CHLORIDE,CL 105 mmol/L (100-108); CREATININE 0.7 mg/dL (0.6-1.0); EST CRCL DRUG DOSING (CG) 83.01 mL/min; ESTIMATED GFR 101 mL/min (>60); GLUCOSE RANDOM 99 mg/dL (74-106); POTASSIUM,K 3.8 mmol/L (3.6-5.2); PROTEIN TOTAL,TP 6.8 g/dL (6.4-8.2); SODIUM,NA 141 mmol/L (140-148)
[2024-12-31 23:30] LABS: C-REACTIVE PROTEIN < 0.50 mg/dL (<0.50)
[2024-12-31] MEDS: Sodium Chloride 0.9% 10 ML Syringe FLUSH PRN (23:57)
[2024-12-31] MEDS: Sodium Chloride 0.9% 100 ML IV SCH (23:57)
[2024-12-31] MEDS: Iopamidol 612 MG/ML 100 ML Bottle IV SCH (23:57)
== END 2025-01-01 02:30 | disposition home or self-care (01) ==
LOC: JP.ED 21:40
DX: L76.82 Other postprocedural complications of skin and subcutaneous tissue (principal); I10 Essential (primary) hypertension; J44.9 Chronic obstructive pulmonary disease, unspecified; E11.9 Type 2 diabetes mellitus without complications; E03.9 Hypothyroidism, unspecified; Z90.49 Acquired absence of other specified parts of digestive tract; Z90.710 Acquired absence of both cervix and uterus; Z88.0 Allergy status to penicillin; Z88.5 Allergy status to narcotic agent; Z88.8 Allergy status to other drugs, medicaments and biological substances; Z91.048 Other nonmedicinal substance allergy status; Z79.51 Long term (current) use of inhaled steroids; Z79.890 Hormone replacement therapy; Z79.899 Other long term (current) drug therapy
CPT/HCPCS: 36415; 74177; 80053; 85025; 86140; 96374; 99283; 99284; J2405; Q9967

== ENCOUNTER 2025-01-07 13:42 | Emergency (ER) | payer MEDICARE, OTHER ==
[2025-01-07] MEDS ORDERED: Sodium Chloride 0.9% 10 ML Syringe FLUSH PRN (14:37)
[2025-01-07 14:48] LABS: BASOPHILS ABSOLUTE AUTO 0.08 K/uL (0.00-0.10); BASOPHILS PERCENT AUTO 1.1 % (0.1-1.3); EOSINOPHILS ABSOLUTE AUTO 0.15 K/uL (0.00-0.40); HEMATOCRIT 37.2 % (34.3-46.0); IMMATURE GRAN ABSOLUTE AUTO 0.02 K/uL (0.00-0.23); IMMATURE GRAN PERCENT AUTO 0.3 % (0.0-0.7); LYMPHOCYTES ABSOLUTE AUTO 2.08 K/uL (0.8-3.3); LYMPHOCYTES PERCENT AUTO 27.7 % (11.4-47.7); MEAN CORPUSCULAR HEMOGLOBIN 30.8 pg (31.6-35.5); MEAN CORPUSCULAR HGB CONC 34.9 g/dL (31.6-35.5); MEAN CORPUSCULAR VOLUME 88.2 fL (81.4-99.0); MONOCYTES ABSOLUTE AUTO 0.44 K/uL (0.20-0.90); MONOCYTES PERCENT AUTO 5.9 % (3.3-12.6); NEUTROPHILS ABSOLUTE AUTO 4.75 K/uL (1.0-7.6); PLATELET COUNT,PLT 295 K/uL (130-375); RED BLOOD CELL COUNT 4.22 M/uL (3.77-5.24); WHITE BLOOD CELL COUNT,WBC 7.5 K/uL (3.2-11.0)
[2025-01-07] MEDS: Sodium Chloride 0.9% 10 ML Syringe FLUSH PRN (15:01)
[2025-01-07] MEDS: Iopamidol 612 MG/ML 100 ML Bottle IV PRN (15:01)
[2025-01-07] MEDS: Sodium Chloride 0.9% 80 ML IV ONE (15:01)
[2025-01-07 15:02] LABS: ANION GAP 10.7 mmol/L (5.0-14.0); CALCIUM 9.1 mg/dL (8.5-10.1); CREATININE 0.9 mg/dL (0.6-1.0); EST CRCL DRUG DOSING (CG) 62.06 mL/min; POTASSIUM,K 3.8 mmol/L (3.6-5.2)
[2025-01-07 15:34] VITALS: BP 107/46; PULSE 74
== END 2025-01-07 15:54 | disposition home or self-care (01) ==
LOC: JP.ED 13:42
DX: K64.9 Unspecified hemorrhoids (principal); E03.9 Hypothyroidism, unspecified; I10 Essential (primary) hypertension; E11.9 Type 2 diabetes mellitus without complications; E66.9 Obesity, unspecified; Z79.890 Hormone replacement therapy; Z88.8 Allergy status to other drugs, medicaments and biological substances; Z88.0 Allergy status to penicillin; Z79.899 Other long term (current) drug therapy; Z79.4 Long term (current) use of insulin; Z86.16 Personal history of COVID-19; Z90.49 Acquired absence of other specified parts of digestive tract; Z90.710 Acquired absence of both cervix and uterus; Z87.891 Personal history of nicotine dependence; Z68.28 Body mass index [BMI] 28.0-28.9, adult
CPT/HCPCS: 36415; 74177; 80048; 83605; 85025; 99284; Q9967; 99283